=== PATIENT | female | born 2000 | race Caucasian/White ===

== ENCOUNTER 2020-03-19 14:53 | Outpatient (RCR) | payer OTHER, SELFPAY ==
[2020-02-27 17:10] VITALS: BMI 37.6
--- NOTE | 2020-03-19 15:18 | HP.PTEVAL ---
Patient's Visit Information LAVELL GUPTA is a 19 year old F referred to Physical Therapy by NIMO Hua with a diagnosis of Shoulder muscle strain. Date of Evaluation: 03/19/20 Physical Therapist: Adam Umaña, DPT, OCS, CSCS - Visit Plan Plan: Pt seems to have greatly benefitted from 2+weeks of rest. Symptoms resolved. I offered her strengthening program to ensure future success but she wishes to return to work and continue her stretches and be done with PT which is hard for me to argue with based on her symptoms resolved and that she willnot need to do the heavy workload that led to this problem in the first place. No skilled PT required or desired. D/C - Subjective Got tendonitis one month ago L shoulder.. Lifted 9 hours straight for four months and slowly started getting pain in shoulder. Diagnosed with tendonitis. Was on light duty for two weeks, then quarantined for two weeks. Shoulder much better afterr the first two weeks. Painfree for last two weeks. Doing stretches at home. 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 Needs to get back to work. Feels ready to go back. Pt feels like stretches will keep it from coming back. Sleep is fine. Home activities are fine adn full. Last work day was last Wednesday from quarantine. Dr. margie champion will see today at 5 pm. Allowed to work now but not to lift. No symptoms in 3 weeks. Wants to do one visit of PT so can return to work. 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 - Objective Pt adamant that she is fine adn does not want any strengthening adn just wants to go back to work full duty. Posture is slightly forward head and shoulders. Cervical AROM is full and without pain. She has no pain to palpation in the UT, neck paraspinals or shoulders today. - external rotation lag test. - sulcus test. - chaz covington. - neer. - labral test L shoulder. Full aROM at B shoulders elbow and wrists. 4+/5 strength in shoulder rotattors and elevators without pain today. elbow sterngth is 5/5 B in flexion and extension. thumb ext adn wrist are 4+. No pain with any testing or palpations. reflexes bi and tri 2/3. Sensation B UE WNL to gross light touch. Overall patient symptoms seem resolved. - Rehabilitation Potential Physical Therapy Diagnosis: Resolved shoulder strain. - Anticipated Interventions Thank you for the opportunity to evaluate your patient. For Medicare and Medicare HMO plans, please review the plan of care and approve it. It will need to be FAXED BACK to us at [phone] for Medicare purposes. For Medicare only, by signing this I certify the plan of care. Please let me know if there are questions or concerns regarding this plan of care. Physician Signature: Date:
== END 2020-03-19 19:00 | disposition home or self-care (01) ==
LOC: PT 14:53
PROVIDERS: PCP Family Medicine; Referring Provider Physician Assistant Surgical; Visit Provider Physician Assistant Surgical
DX: S46.912D Strain of unspecified muscle, fascia and tendon at shoulder and upper arm level, left arm, subsequent encounter (principal)
CPT/HCPCS: 97161

== ENCOUNTER 2020-08-01 18:49 | Observation (INO) | payer BC, SELFPAY ==
[2020-03-19 17:16] VITALS: BMI 40.5
[2020-08-01 18:49] VITALS: BP 164/74; PULSE 75; RESP 16; TEMP 35.8; O2SAT 98; BMI 39.8
--- NOTE | 2020-08-01 19:07 | ED.DCSUM_ITS ---
History of Present Illness Chief Complaint: Abd Pain Informant: Patient Narrative: 20-year-old female with no significant past medical history presenting with right upper quadrant pain. She states she has had this for some time and its been intermittent. She had outpatient lab work drawn which was normal and a right upper quadrant ultrasound which showed dilated common bile duct of 6.1 mm and a 16 mm gallstone as well as cholelithiasis. Patient states that her pain is now constant. She does not want to go to pulmonary hospital for treatment. She denies any fever, chills. She denies vomiting but has some mild nausea. She denies diarrhea or constipation. Past Medical History - Allergies and Home Meds Allergies/Adverse Reactions: Allergies Sulfa (Sulfonamide Antibiotics) Adverse Reaction (Verified 08/01/20 18:52) Mucosal lesions Prior records reviewed: Yes Past Medical History: - - No significant medical history Surgical History: noncontributory Lives: Spouse/ Significant Other Smoking Status: Never smoker Alcohol: None Drugs: None Review of Systems General: Denies: Chills, Fever, Sweats Eyes: Denies: Visual changes - bilaterally, Diplopia ENT: Denies: Rhinorrhea, Sore throat Cardiovascular: Denies: Chest pain, Palpitations Respiratory: Denies: Dyspnea, Cough, Dyspnea on exertion Gastrointestinal: Reports: Abdominal pain, Nausea. Denies: Vomiting, Diarrhea, Constipation, Melena, Hematochezia Genitourinary: Denies: Dysuria, Hematuria, Frequency Musculoskeletal: Denies: Back pain, Extremity Pain Skin: Denies: Rash, Wounds Neurological: Denies: Headache, Weakness, Numbness Psych: Denies: Depression, Anxiety Endocrine: Denies: Polyuria, Polydipsia Physical Exam Vital Signs/Narrative: Vital Signs Temp Pulse Resp BP Pulse Ox 08/01/20 18:49 96.5 F L 75 16 164/74 H 98 Inital Vital Signs reviewed: Yes General: Well nourished, Acute Distress - Appears to be in pain Eyes: Perrl, EOMI ENT: Moist mucous membranes, No rhinorrhea Cardiovascular: Regular rate, Regular rhythm Abdomen: Soft, Nondistended, Steward's sign Back: Nontender, Normal Inspection Extremities: Nontender, No edema Skin: Normal color, No rash. Negative for: Cyanosis, Diaphoresis Neurological: Negative for: Alert, Oriented x3, Cranial nerves II-XII grossly intact Psychological: Normal affect, Normal Mood Diagnostic/Tx/Re-eval Clinical Impression(s) from Imaging Studies Gallbladder Ultrasound 08/01/20 19:24 IMPRESSION: Cholelithiasis positive Steward''s sign which may be consistent with acute cholecystitis. This may be further confirmed with HIDA scan if clinically warranted Electronically Signed: Joshua Mistry MD at 19:59 EDT , Service support , Laboratory Data 08/01/20 08/01/20 08/01/20 19:05 19:15 19:15 WBC 11.1 H RBC 4.74 Hgb 14.1 Hct 40.8 MCV 86.1 MCH 29.7 MCHC 34.6 RDW Std Deviation 35.5 RDW Coeff of Elvia 11.3 L Plt Count 243 MPV 10.0 Immature Gran % (Auto) 0.300 Neut % (Auto) 67.2 Lymph % (Auto) 26.6 [place] % (Auto) 4.9 Eos % (Auto) 0.5 Baso % (Auto) 0.5 Absolute Neuts (auto) 7.5 Absolute Lymphs (auto) 2.95 Nucleated RBC % 0 Sodium 138 Potassium 3.8 Chloride 107 Carbon Dioxide 26.0 Anion Gap 5 BUN 16 Creatinine 0.86 Estim Creat Clear Calc 86.32 Est GFR (MDRD) Af Amer 109 Est GFR (MDRD) Non-Af 90 BUN/Creatinine Ratio 18.7 Glucose 86 Calcium 8.9 Total Bilirubin 0.30 Direct Bilirubin 0.10 AST 9 L ALT 20 Alkaline Phosphatase 76 Total Protein 7.3 Albumin 3.9 Globulin 3.4 Lipase 88 Serum , Qual Urine Color Yellow Urine Clarity Clear Urine pH 7.0 Ur Specific [place] 1.015 Urine Protein Negative Urine Glucose (UA) Normal Urine Ketones Negative Urine Occult Blood Negative Urine Nitrite Negative Urine Bilirubin Negative Urine Urobilinogen Normal Ur Leukocyte Esterase Negative Urine RBC 0 SEEN Urine WBC 0 SEEN Ur Squamous Epith Cells 0-5 SEEN Urine Bacteria 0 SEEN Urine Mucus 0 SEEN 08/01/20 19:15 WBC RBC Hgb Hct MCV MCH MCHC RDW Std Deviation RDW Coeff of Elvia Plt Count MPV Immature Gran % (Auto) Neut % (Auto) Lymph % (Auto) [place] % (Auto) Eos % (Auto) Baso % (Auto) Absolute Neuts (auto) Absolute Lymphs (auto) Nucleated RBC % Sodium Potassium Chloride Carbon Dioxide Anion Gap BUN Creatinine Estim Creat Clear Calc Est GFR (MDRD) Af Amer Est GFR (MDRD) Non-Af BUN/Creatinine Ratio Glucose Calcium Total Bilirubin Direct Bilirubin AST ALT Alkaline Phosphatase Total Protein Albumin Globulin Lipase Serum , Qual NEGATIVE Urine Color Urine Clarity Urine pH Ur Specific [place] Urine Protein Urine Glucose (UA) Urine Ketones Urine Occult Blood Urine Nitrite Urine Bilirubin Urine Urobilinogen Ur Leukocyte Esterase Urine RBC Urine WBC Ur Squamous Epith Cells Urine Bacteria Urine Mucus - Medical Decision Making Patient presenting with right upper quadrant pain and positive Steward sign. She does appear to be in pretty exquisite pain initially. She is given morphine and Zofran and has good control of her pain. When reevaluated though she does have tenderness. Her CBC shows an increasing leukocytosis at 11,000 which was previously 9.5. Renal function electrolytes are normal. LFTs are not elevated. Ultrasound of the gallbladder shows cholelithiasis. Gallbladder wall is normal. Common bile duct is upper limits of normal at [address] Mcnair will come evaluate the patient. At this point given the patient's elevated white blood cell count and gallstones as well as upper limit of normal common bile duct patient will be admitted for acute cholelithiasis Impression: 1. Acute cholelithiasis ED Disposition - Plan for ED Patient: Disposition: Acute Care Hospital [facility]
[2020-08-01 19:10] LABS: Bacteria 0 SEEN /hpf (None Seen); Mucous, Urine 0 SEEN /hpf (<or=2+); Red Blood Cells-Urine 0 SEEN /hpf (0-5); White Blood Cells 0 SEEN /hpf (0-5)
[2020-08-01 19:14] LABS: Color, Urine Yellow (Yellow); Glucose, Dipstick Normal (Normal); Ketone-Dipstick Negative (Negative); Leukocyte Esterase-Dipstick Negative /ul (Negative); Nitrite-Dipstick Negative (Negative); Occult Blood-Urine Negative /ul (Negative); Protein-Dipstick Negative (Negative); Specific Gravity, Urine 1.015 (1.002-1.030); Urine Bilirubin Dipstick Negative (Negative); Urine Clarity Clear (Clear); Urine Urobilinogen Normal (Normal)
[2020-08-01] MEDS: 0.9% Normal Saline 1,000 ML 1000 ML IV (19:17)
[2020-08-01] MEDS: Ondansetron 4 MG/2 ML Vial IV (19:17)
[2020-08-01] MEDS: Morphine 4 MG/ML Syringe IV (19:18)
[2020-08-01 19:20] LABS: Squamous Epithelial Cells - UA 0-5 SEEN /hpf (5-10)
[2020-08-01 19:24] LABS: Absolute Lymphocyte Count 2.95 X10^3/uL (0.83-4.51); Absolute Neutrophil Count 7.5 X10^3/uL (2.0-7.7); Basophil# 0.06 X10^3/uL; Basophil% 0.5 % (0-1); Eosinophil# 0.06 X10^3/uL; Eosinophils% 0.5 % (0-5); Hematocrit 40.8 % (37-47); Hemoglobin 14.1 g/dL (12.0-15.0); Lymphocyte # 2.95 X10^3/ul (0.83-4.51); Lymphocyte % 26.6 % (19-41); Mean Corp Hgb Conc 34.6 g/dL (32-36); Mean Corpuscular Hgb 29.7 pg (27.0-32.0); Mean Corpuscular Volume 86.1 fL (81-99); Monocyte# 0.54 X10^3/uL; Monocyte% 4.9 % (0-10); NRBC Flagged by Analyzer 0 % (0-5); Neutrophil # 7.45 X10^3/uL (2.7-7.7); Neutrophil % 67.2 % (47-70); Platelet Count 243 K/mm3 (150-450); RBC Distribution Width CV 11.3 % (11.6-14.6); RBC Distribution Width SD 35.5 fl (35.1-43.9); Red Blood Count 4.74 M/mm3 (4.2-5.4); White Blood Count 11.1 K/mm3 (4.4-11.0)
--- NOTE | 2020-08-01 19:24 | US_ITS ---
STUDY: ABDOMINAL ULTRASOUND - RIGHT UPPER QUADRANT REASON FOR VISIT: Female, 20 years old PAIN-RUQ TECHNIQUE: Ultrasound evaluation of the right upper quadrant was performed with real-time and static larsen-scale imaging. TECHNICAL QUALITY: Adequate. COMPARISON: None. FINDINGS: Liver: The liver measures 17.5 cm. There is normal echogenicity of the liver. The bile ducts are within normal limits. There is hepatic color flow. The direction of portal flow is hepatopetal. There is no demonstrated mass lesion. Gallbladder: Normal distended gallbladder. The gallbladder wall measures 3 mm. There is a positive sonographic Steward''s sign. There is no pericholecystic fluid. There is a solitary. Common Bile Duct (C.B.D.): The common bile duct measures 6 mm. Pancreas: Suboptimal visualization due to bowel gas producing artifact.. Right Kidney: Normal size of the right kidney. The right kidney measures 11.1 x 5.1 x 3.7 cm. Normal renal cortex. The right cortex measures 1.4 cm. There is no demonstrated renal mass or cyst. There is no right hydronephrosis. US/Gallbladder IMPRESSION: Cholelithiasis positive Steward''s sign which may be consistent with acute cholecystitis. This may be further confirmed with HIDA scan if clinically warranted Electronically Signed: Joshua Mistry MD at 19:59 EDT , Service support ,
[2020-08-01 19:51] LABS: Internal QC Validated? YES +Cl - CLEAR BKGD; Pregnancy, Serum, hCG Quali. NEGATIVE Negative
[2020-08-01 19:59] LABS: AST(SGOT) 9 U/L (15-37); Alanine Aminotransfer ALT/SGPT 20 U/L (13-56); Albumin, Serum 3.9 g/dL (3.2-5.0); Alkaline Phosphatase 76 U/L (45-117); Anion Gap 5 (5-15); BUN 16 mg/dL (7-18); BUN/Creat Ratio 18.7 RATIO (10-20); Calcium,Total 8.9 mg/dL (8.5-10.1); Chloride 107 mmol/L (98-107); Creatinine, Serum 0.86 mg/dL (0.55-1.02); EST Glomerular Filtration Rate 90 mL/min (>60); Est Glom Filt Rate - Afr Amer 109 mL/min (>60); Estimated Creatinine Clearance 86.32 ml/min; Globulin 3.4 g/dL (2.2-4.2); Glucose 86 mg/dL (74-106); Lipase 88 U/L (73-393); Potassium 3.8 mmol/L (3.5-5.1); Protein, Total 7.3 g/dL (6.4-8.2); Sodium Level 138 mmol/L (136-145)
[2020-08-01 20:54] VITALS: BP 139/74; PULSE 84; RESP 16; O2SAT 99
[2020-08-01 20:55] VITALS: BP 139/74; PULSE 84; RESP 16; TEMP 35.8; O2SAT 99
--- NOTE | 2020-08-01 21:00 | PCM.HP.STD ---
Problem List (1) Acute cholecystitis due to biliary calculus Status: Acute History of Present Illness Date of Admission: 08/01/20 The patient is a 20 year old F presents with abdominal pain. The patient has been having abdominal pain for 4 weeks and had outpatient imaging last week and this showed cholelithiasis but at that time she had a normal white count. She presents today with worsening of right upper quadrant pain which radiates to the back and nausea. Patient reports pain with eating any food. She says the nausea has gotten worse over the last week as has the pain. Past Medical History Allergies Sulfa (Sulfonamide Antibiotics) Adverse Reaction (Verified 08/01/20 18:52) Mucosal lesions Home Medications: Ambulatory Orders Medication Instructions Recorded Ondansetron [Zofran Odt] 4 mg PO Q8H PRN PRN #12 tablet 08/01/20 Surgical History: noncontributory Lives: Spouse/ Significant Other Smoking Status: Never smoker Alcohol: None Drugs: None Review of Systems Constitutional: Denies: Anorexia, Fever HEENT: Denies: Difficulty Swallowing Respiratory: Denies: Cough Gastrointestinal: Reports: Abdominal Pain, Nausea. Denies: Constipation, Diarrhea, Vomiting Genitourinary: Denies: Dysuria Musculoskeletal: Denies: Joint Tenderness Skin: Denies: Jaundice Hematologic/ Lymphatic: Denies: Anemia VTE Information - Inpt Only VTE Present on Admission: No VTE Mechan Device Prophylaxis: SCD's - Physical Exam Vitals/I&O's: Vital Signs Temp Pulse Resp BP Pulse Ox 96.5 F L 84 16 139/74 H 99 08/01/20 20:55 08/01/20 20:55 08/01/20 20:55 08/01/20 20:55 08/01/20 20:55 Oxygen Delivery Method Room Air Weight: 225 lb Body Mass Index (BMI) 39.8 Intake and Output for Last 24 Hours 07/30/20 07/31/20 08/01/20 23:59 23:59 23:59 Intake Total 1000 / 1000 Balance 1000 / 1000 General: Alert, Oriented x3 Neck: No JVD Lungs: Normal air movement Cardiovascular: Regular rate, Regular Rhythm Abdomen: Soft, Non-Distended, Tender - Tender in the right upper quadrant no guarding rebound Extremities: No clubbing Musculoskeletal: No Muscle Wasting Lymphatic: No Cervical, Supraclavicular, or Inguinal Adenopathy Neurological: Cranial nerves II-XII grossly intact Psych/Mental Status: Normal Affect Laboratory Results 08/01/20 19:05: Urine Color Yellow, Urine Clarity Clear, Urine pH 7.0, Ur Specific [place] 1.015, Urine Protein Negative, Urine Glucose (UA) Normal, Urine Ketones Negative, Urine Occult Blood Negative, Urine Nitrite Negative, Urine Bilirubin Negative, Urine Urobilinogen Normal, Ur Leukocyte Esterase Negative, Urine RBC 0 SEEN, Urine WBC 0 SEEN, Ur Squamous Epith Cells 0-5 SEEN, Urine Bacteria 0 SEEN, Urine Mucus 0 SEEN 08/01/20 19:15: WBC 11.1 H, RBC 4.74, Hgb 14.1, Hct 40.8, MCV 86.1, MCH 29.7, MCHC 34.6, RDW Std Deviation 35.5, RDW Coeff of Elvia 11.3 L, Plt Count 243, MPV 10.0, Immature Gran % (Auto) 0.300, Neut % (Auto) 67.2, Lymph % (Auto) 26.6, [place] % (Auto) 4.9, Eos % (Auto) 0.5, Baso % (Auto) 0.5, Absolute Neuts (auto) 7.5, Absolute Lymphs (auto) 2.95, Nucleated RBC % 0 08/01/20 19:15: Sodium 138, Potassium 3.8, Chloride 107, Carbon Dioxide 26.0, Anion Gap 5, BUN 16, Creatinine 0.86, Estim Creat Clear Calc 86.32, Est GFR (MDRD) Af Amer 109, Est GFR (MDRD) Non-Af 90, BUN/Creatinine Ratio 18.7, Glucose 86, Calcium 8.9, Total Bilirubin 0.30, Direct Bilirubin 0.10, AST 9 L, ALT 20, Alkaline Phosphatase 76, Total Protein 7.3, Albumin 3.9, Globulin 3.4, Lipase 88 08/01/20 19:15: Serum , Qual NEGATIVE Clinical Impression(s) from Imaging Studies Gallbladder Ultrasound 08/01/20 19:24 IMPRESSION: Cholelithiasis positive Steward''s sign which may be consistent with acute cholecystitis. This may be further confirmed with HIDA scan if clinically warranted Electronically Signed: Joshua Mistry MD at 19:59 EDT , Service support , Assessment/Plan All Active Problems (Last Reviewed 03/19/20 @ 17:19 by Maribell Guidry) Acute cholecystitis due to biliary calculus (Acute) Left shoulder strain (Acute) 20-year-old female with acute cholecystitis 1. The patient had repeat labs and imaging today. The imaging shows a large gallstone in the neck of the gallbladder with a borderline thickness gallbladder wall. The patient has sonographic positive Steward sign. The patient does have a white count of 11 which is slightly elevated and it was 9 a few days ago. The patient is in a lot of pain and is unable to tolerate a diet. I discussed laparoscopic cholecystectomy with her and I will admit her overnight and antibiotics and plan for laparoscopic cholecystectomy with cholangiogram tomorrow. Her bile duct was also slightly dilated so I will plan for cholangiograms. 2. I discussed the procedure in detail with the patient. I discussed the risks, benefits, and alternatives of the procedure. I discussed the risks including but not limited to bleeding, infection, injury to surrounding organs such as the liver, bile duct, bowels. I did discuss the possibility of having to convert to an open procedure as well as the possibility that if any injuries occurred this may necessitate further surgery at a tertiary care center. Elfego Reynolds MD Pager: [facility] [address] [place] [address], [address] [place] [address] Office:
[2020-08-01 22:02] VITALS: BMI 39.8
[2020-08-01 22:28] VITALS: BP 125/60; PULSE 72; RESP 20; TEMP 36.7; O2SAT 98
[2020-08-01] MEDS: 0.9% Saline Lock 10 ML Syringe IV (23:14)
[2020-08-01] MEDS: 0.9% Normal Saline 1,000 ML 100 ML IV (23:14)
[2020-08-02] VITALS (8 sets, daily range): BP systolic 130–147; BP diastolic 59–83; PULSE 73–105; RESP 16; TEMP 36.3–36.9; O2SAT 97–100; BMI 39.8
--- NOTE | 2020-08-02 | GALL_PTH ---
PATIENT: LAVELL HARTMAN LOC: MS3 U#:[id number] AGE/SX: 20/F ROOM: MS311 RE08/01/[address]: Dr. Elfego Reynolds MD : 2000 BED: 1 DIS: 08/02/2020 SPEC #: [id number] RECD: 08/05/20 08:15 STATUS: JUAN PABLO MARCOS #: [id number] CORY: 08/02/20 00:[address]: Elfego Reynolds DEPT: SURGICAL PATHOLOGY RECD BY: Ulices Catherine ENTERED: 08/05/20 08:15 SP TYPE: NORM TRUONG DR: Sandra Gandhi PA-C Tissues: Gallbladder, NOS Procedures: Surgery Specimen Level III HEADER OPERATION: Laparoscopic cholecystectomy with IOC PRE-OP DIAGNOSIS: Biliary colic, acute cholecystitis TISSUE SUBMITTED: Gallbladder and contents MICROSCOPIC DIAGNOSIS Gallbladder and contents, cholecystectomy: Mild chronic cholecystitis, cholelithiasis and focal cholesterolosis. DESTINY:anthony 08/06/2020 MICROSCOPIC DESCRIPTION Slides are reviewed. GROSS DESCRIPTION Received is one container labeled with the patient's name and designated gallbladder and contents. The specimen consists of a gallbladder measuring 9 cm in length and up to 3.5 cm in diameter. The external surface is pink-patel, smooth and glistening for the most part. Focally it is granular, hemorrhagic and contains cautery artifact. The gallbladder contains green-yellow mucoid bile and one brown, round stone measuring 1 cm in greatest dimension. The mucosa is bile-stained and without any mass lesions. The gallbladder wall measures up to 0.1 cm in thickness. Woods Laborer sections from the gallbladder and the cystic duct are submitted in one cassette. / DESTINY:anthony 08/05/20 TC:3 [facility]: [id number]
--- NOTE | 2020-08-02 05:00 | EKG12_ITS ---
Test Reason : PRE-OP Blood Pressure : / mmHG Vent. Rate : 066 BPM Atrial Rate : 066 BPM P-R Int : 134 ms QRS Dur : 098 ms QT Int : 386 ms P-R-T Axes : 024 061 033 degrees QTc Int : 404 ms Sinus rhythm with marked sinus arrhythmia Otherwise normal ECG No previous ECGs available Confirmed by IRINA CAO, ANTONIO ([id number]), proposal editor JEREMIAH MARTINEZ ([id number]) on 08/05/2020 10:07:12 A M Referred By: JANINE Confirmed By:CASANDRA AREVALO MD
[2020-08-02] MEDS: Ondansetron 4 MG/2 ML Vial IV (05:47)
[2020-08-02 05:50] LABS: Absolute Lymphocyte Count 2.28 X10^3/uL (0.83-4.51); Absolute Neutrophil Count 4.8 X10^3/uL (2.0-7.7); Basophil# 0.03 X10^3/uL; Basophil% 0.4 % (0-1); Eosinophil# 0.03 X10^3/uL; Eosinophils% 0.4 % (0-5); Hematocrit 39.6 % (37-47); Hemoglobin 13.3 g/dL (12.0-15.0); Lymphocyte # 2.28 X10^3/ul (0.83-4.51); Lymphocyte % 30.6 % (19-41); Mean Corp Hgb Conc 33.6 g/dL (32-36); Mean Corpuscular Volume 86.5 fL (81-99); Mean Platelet Vol. 9.8 fl (6.2-12.0); Monocyte# 0.35 X10^3/uL; Monocyte% 4.7 % (0-10); NRBC Flagged by Analyzer 0 % (0-5); Neutrophil # 4.75 X10^3/uL (2.7-7.7); Neutrophil % 63.8 % (47-70); Platelet Count 236 K/mm3 (150-450); RBC Distribution Width CV 11.4 % (11.6-14.6); RBC Distribution Width SD 36.1 fl (35.1-43.9); Red Blood Count 4.58 M/mm3 (4.2-5.4); White Blood Count 7.5 K/mm3 (4.4-11.0)
[2020-08-02 06:08] LABS: ALB/GLOB Ratio 1.1 RATIO (0.9-2.4); AST(SGOT) 10 U/L (15-37); Alanine Aminotransfer ALT/SGPT 18 U/L (13-56); Albumin, Serum 3.5 g/dL (3.2-5.0); Alkaline Phosphatase 67 U/L (45-117); Anion Gap 5 (5-15); BUN 12 mg/dL (7-18); BUN/Creat Ratio 18.8 RATIO (10-20); Calcium,Total 8.7 mg/dL (8.5-10.1); Chloride 110 mmol/L (98-107); Creatinine, Serum 0.64 mg/dL (0.55-1.02); EST Glomerular Filtration Rate 126 mL/min (>60); Est Glom Filt Rate - Afr Amer 152 mL/min (>60); Estimated Creatinine Clearance 115.99 ml/min; Globulin 3.1 g/dL (2.2-4.2); Glucose 91 mg/dL (74-106); Potassium 3.9 mmol/L (3.5-5.1); Protein, Total 6.6 g/dL (6.4-8.2); Sodium Level 139 mmol/L (136-145)
[2020-08-02] MEDS: 0.9% Normal Saline 1,000 ML 100 ML IV (09:25)
--- NOTE | 2020-08-02 14:40 | RAD_ITS ---
CLINICAL HISTORY: Female, 20 years old. Acute cholecystitis PROCEDURE: CHOLANGIOGRAM - intraoperative FLUOROSCOPY TIME (if supplied): 1 second Technique: Utilizing fluoroscopic guidance intraoperative cholangiogram was performed in usual fashion. A sequence of 62 images was obtained during the study documenting the procedure. For more complete information recommend correlation with surgical notes RAD/Cholangiogram/ O R,Initial IMPRESSION: Fluoroscopic guided intraoperative cholangiogram Electronically Signed: Joshua Mistry MD at 18:00 EDT , Service support ,
[2020-08-02] MEDS: Bupiv/Epi 0.25% 30 ML Vial (15:15)
--- NOTE | 2020-08-02 15:16 | PCM.OPRPT ---
Problem List (1) Acute cholecystitis due to biliary calculus Status: Resolved Report of Operation Date of Procedure: 08/02/20 Pre-Operative Diagnosis: Acute cholecystitis Post-Operative Diagnosis: Same Surgery/Procedure Performed:: Laparoscopic cholecystectomy with cholangiogram Specimen's removed: Gallbladder and contents Estimated Blood Loss (mL): 10 Description of Procedure: After obtaining informed consent patient was brought back to the operating room. General anesthesia was induced. The abdomen was prepped and draped in usual sterile fashion. A small midline incision was made superior to the umbilicus and deepened to the level of fascia. The fascia was elevated and incised. Next the peritoneum was elevated and incised in the same fashion. Finger sweep was performed and the Shabazz trocar was placed into the abdomen. The balloon was inflated. The abdomen was inflated to 15 mmHg. Next a camera was introduced into the abdomen and the abdomen was inspected. Next under direct visualization three 5-mm ports were placed one subxiphoid and 2 subcostal. Next the gallbladder was elevated and retracted toward the right shoulder. The peritoneum was stripped from the gallbladder. The infundibulum was located and retracted laterally. Next the triangle of Calot was dissected and the cystic duct and cystic artery were identified. Cholangiograms were performed. The Benavides clamp was used to clamp across the infundibulum and the catheter needle was inserted into the gallbladder. Under fluoroscopy contrast was instilled into the gallbladder and the common duct, cystic duct as well as proximal hepatic ducts were identified. There was good filling of the duodenum. There were no filling defects noted in the common bile duct. The clamp was removed as well as the needle and the infundibulum was grasped once more. Three hemolock clips were placed across the cystic duct. The cystic duct was then divided leaving 2 clips on the stump. The cystic artery was clipped and divided in the same fashion. The hook cautery was then used to take the gallbladder off of the gallbladder bed. Hemostasis was obtained. Gallbladder fossa was irrigated and no active bleeding or bile leakage was noted. Next the camera was introduced in the subxiphoid port. An Endopouch bag was placed through the umbilical port and the gallbladder was placed into it. The gallbladder was then removed through the umbilical incision. The camera was then reinserted through the umbilical port. The gallbladder fossa was inspected once more and noted to be hemostatic with no leaking bile. The abdomen was suctioned dry. The 5 mm ports were removed under direct visualization. The umbilical port was then removed and the air was removed from the abdomen. Next using an 0 Vicryl suture the umbilical fascia was closed in a [id number] fashion. The umbilical port site was irrigated local anesthetic was administered to all the incisions. All the incisions were closed with interrupted subcuticular 4-0 Monocryl sutures followed by Steri-Strips and dressings. The patient was awoken and taken to PACU in stable condition. - Admit VTE Documentation VTE Mechan Device Prophylaxis: SCD's
--- NOTE | 2020-08-02 15:21 | PCM.DC.GB ---
Discharge Diet: Light diet - advance as tolerated Discharge Activity: Return to Normal Activity, May Not Drive - for 2-3 days or while taking narcotic pain medicataions., - - Do not drive, work heavy equipment or sign legal documents for 24 hours. May shower in (days): 1 - with the bandage in place. Lifting Restrictions: 20 lbs for 2 weeks Additional Activity Instructions:: Pain medication may cause nausea. You should typically eat light foods as you take your pain medications. Pain medication may also cause constipation. If this is a problem for you, please discuss with your doctor. Call your doctor if your incision/area has: Continuous Slow Oozing, Sudden Increased Bleeding, Increased Pain/ Swelling, Increased Redness, Foul Smelling Discharge, Fever of 101 or Higher Call your doctor if you observe: Fever of 101 or Higher Suture Line Care: Avoid Pulling/Pushing, Avoid Pinching/Bending Additional Dressing/Incision Instructions:: Leave operative bandaids on for 2 days. When you remove dressing, leave Steri-Strips on until your follow-up appointment, or until the Steri-Strips fall off on their own. Allergies/Adverse Reactions: Allergies Sulfa (Sulfonamide Antibiotics) Adverse Reaction (Verified 08/01/20 18:52) Mucosal lesions Medications to take at Discharge Acetaminophen [Tylenol Tablet] 650 mg PO Q4H PRN PRN tablet 08/02/20 Oxycodone [Oxyir] 5 - 10 mg PO Q4H PRN PRN 5 Days #30 tablet 08/02/20 The following prescriptions were given: Oxycodone [Oxyir] 5 - 10 mg PO Q4H PRN PRN 5 Days #30 tablet PRN Reason: Pain Score 4-10/10 Transmission Status: Sent to [facility] Primary Care Physician: Cristian Guidry MD [NON-STAFF] - Test Results: Test results from this visit will be discussed in further detail at your follow-up appointment, if applicable. Please Follow Up With: Elfego Reynolds MD When: Please call to schedule 2 week follow up appointment. [phone]
[2020-08-02] MEDS: 0.9% Saline Lock 10 ML Syringe IV (16:41)
[2020-08-02] MEDS: Morphine 2 MG/ML Syringe IV (16:41)
[2020-08-02] MEDS: oxyCODONE 5 MG Tablet PO (17:28)
== END 2020-08-02 19:40 | disposition home or self-care (01) ==
LOC: ED 20:01 → MS3 21:50
PROVIDERS: Admitting Provider Surgery; Emergency Provider Student in an Organized Health Care Education/Training Program; PCP Family Medicine; Visit Provider Surgery
PROC: (CPT 47610; principal; 2020-08-02 13:55)
DX: K80.66 Calculus of gallbladder and bile duct with acute and chronic cholecystitis without obstruction (principal); J45.998 Other asthma
CPT/HCPCS: 00790; 47563; 74300; 76000; 76705; 80048; 80053; 80076; 81001; 83690; 84703; 85025; 87426; 88304; 93005; 96361; 96365; 96366; 96375; 96376; 99218; 99251; 99283; J7030; J7040; A4216; G0378; G0463; J2405

== ENCOUNTER 2021-08-19 16:30 | Outpatient (RCR) | payer OTHER, SELFPAY ==
--- NOTE | 2021-06-18 09:55 | HP.PTEVAL_ITS ---
Patient's Visit Information LAVELL HARTMAN is a 21 year old F referred to Physical Therapy by NIMO Butterfield with a diagnosis of R shoulder pain. Date of Evaluation: 06/10/21 Physical Therapist: Sanchez Bolivar DPT - Visit Plan Frequency: 2x /Week Duration: 4 Weeks Plan: Start with restoring full motion without increase in symptoms, may bee to add in inferior glides with mobility to assist. Can use US to anterior aspect of shoulder as needed. Once improving work on scapular stability and RTC strengthening as tolerated. - Subjective Pt. is here today for her initial evaluation with diagnosis of R shoulder pain. Pt. reports hurting shoulder from what she believes as increased repetition at work. She reports symptoms started ~2 years ago. She had taken time off and was doing a bit better, but is now back and is worse. 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 Pain at worst 10/10, constantly at least a 4-5/10 pain. She denies N/T and no issues with her x-rays. She did have some exercises from PT which she received 2 years ago, but did not provide much relief. Her pain is at anterior shoulder that radiates into deltoid region, she has been using her R UE move and just having L arm at her side as much as she can. She recently started lifting again and irritated her symptoms worse. She is hopeful to reduce symptoms in order to be able to complete all of her work, and reactional activities without limitations. - Pain R shoulder Pain Intensity (Out of 10): 4 Pain Intensity Range: 4, 10 - Objective POSTURE: FH with anterior rotated shoulders. PALPATION: Pt. has tenderness in B UT, R anterior shoulder near biceps grove. Pt. has pain at supraspinatus insertion as well. No pain to palpation of deltoid. NEURO: Pt. has normal sensation and normal DTR of BUEs. ROM: LUE full ROM without increase in symptoms. R UE flexion, 170deg increase NW at end range, abd 170deg increase NW at end range. Functional IR full no issues, functional ER C4 increase NW. MMT: LUE: full strength without increase in symptoms. RUE: full strength except, ER 17.1# compared to 26# on L, and abd 13# compared to 21# on L. Pain with both movements. - Special Tests R Shoulder Drop Sign - IS Test: Negative R Shoulder Empty Can - SS: Positive R Shoulder Belly Press - SupScap: Negative R Shoulder Neer - Impingement: Positive R Shoulder Beltrán Leo - Impingement: Positive R Shoulder Biceps Load Test - Labrum: Negative R Shoulder Yeargasons - SLAP: Negative R Shoulder Speeds Test - Labrum/Biceps: Negative - Balance/Special Test Scores Quick DASH Score: 40.9075 - Goals Goal 1:: LTG: Pt. to be I with HEP for RTC and scapular stability. Goal Time Frame: 2-4 Weeks Goal 2:: STG: Pt. to sleep throughout the night with 0-2/10 pain allowing for increased quality of life. Goal Time Frame: 2 Weeks Goal 3:: STG: Pt. to have 0-2/10 pain in R shoulder at rest. Goal Time Frame: 2 Weeks Goal 4:: LTG: Pt. to complete all work duties including lifting over head, reaching across body and all ADLs without increase in symptoms. Goal Time Frame: 2-4 Weeks Goal 5:: LTG: Pt. to have increased R shoulder strength by 10# in ER and abduction movements allowing increased stability and tolerance with all work related activities. Goal Time Frame: 4-6 Weeks - Rehabilitation Potential Physical Therapy Diagnosis: Pt. has signs and symptoms consistent with R shoulder pain. She has signs of RTC pathology hard to discern between tear and tendonosis due to pain. She has decent strength and fine passive motion. At this point in time I would suggest working to restore pain free motion and slow loading RTC to increase tensile strengthen. Rehabilitation Potential: Good - Anticipated Interventions Patient/Client Instruction: Educate patient on: Condition, Plan of Care, Risk Factors, Benefits of Fitness Program For the Purpose of:: To improve decision making, To facilitate caregiver knowledge, To improve self management, To prevent re-injury, To improve ability to perform tasks related to life management, To improve tolerance to ADL's Therapeutic Exercise to Include: Strength training, Power training, Endurance training, Body mechanics, Postural training, Flexibilty training, Passive ROM, Active ROM, Balta Exercises, Scapular Strength/Stabilization For the Purpose of:: To decrease pain, To decrease swelling/inflammation, To increase ROM, To improve nutrient delivery to tissue, To increase oxygenation perfusion, To improve muscle performance and motor function, To improve ability to perform ADL's, To increase tolerance to activity/condition/position, To improve ability of physical actions for home/community/work/leisure, To improve gait and locomotor functions, To improve health of tissue Manual Therapy Techniques to Include: Mobilization, Passive ROM For the Purpose of:: To decrease pain, To decrease swelling/inflammation, To increase ROM, To improve nutrient delivery to tissue Ultrasound (thermal/non thermal): Yes For the Purpose of:: To decrease pain, To decrease swelling/inflammation, To increase ROM Thank you for the opportunity to evaluate your patient. For Medicare and Medicare HMO plans, please review the plan of care and approve it. It will need to be FAXED BACK to us at [phone] for Medicare purposes. For Medicare only, by signing this I certify the plan of care. Please let me know if there are questions or concerns regarding this plan of care. Physician Signature: Date:
--- NOTE | 2021-08-21 08:41 | HP.PTDCSUM ---
It has been my pleasure to treat LAVELL HARTMAN referred by NIMO Butterfield, with the diagnosis of R shoulder pain for a total of 10 visit(s). Discharge Date: 08/19/21 Please see the following information for a summary of their discharge status. Subjective: Pt. reports I am like 98% better overall. She reports no pain currently and is back to all of her work activities without limitations. She is HEP. Pt. reports being pleased. R shoulder Pain Intensity (Out of 10): 0 % Improvement: 98 Objective/Function: R shoulder: PROM Full motion without increase in symptoms. AROM: flexion 170deg, abd 170deg, functional ER C5, functional IR T11. Pt. reports no pain, just a little tightness with OH end ranges. MMT: symmetrical throughout bilateral shoulder without increase in symptoms. No issues sleeping, no issues with work activities. No pain reported. - HK, -impingement testing, - speeds, - lift off, - biceps load. Goal 1:: LTG: Pt. to be I with HEP for RTC and scapular stability. Goal Progress: Goal Met Goal 2:: STG: Pt. to sleep throughout the night with 0-2/10 pain allowing for increased quality of life. Goal Progress: Goal Met Goal 3:: STG: Pt. to have 0-2/10 pain in R shoulder at rest. Goal Progress: Goal Met Goal 4:: LTG: Pt. to complete all work duties including lifting over head, reaching across body and all ADLs without increase in symptoms. Goal Progress: Goal Met Goal 5:: LTG: Pt. to have increased R shoulder strength by 10# in ER and abduction movements allowing increased stability and tolerance with all work related activities. Goal Progress: Goal Met Plan: Pt. to be DC to HEP at this point in time. Discharge Comments: Lavell is doing much better. Since she had her injection she has progressed very well. She today had no issues with her shoulder. She is I with her HEP for RTC strengthening/stability. She will be DC from PT at this point in time. If there are questions or concerns regarding this patient's physical therapy, please feel free to call me at [phone]. Thank you for the referral of this patient. Sincerely, Sanchez Estrada Sipos, DPT Balance/Gait/Functional tests - Balance/Special Test Scores Quick DASH Score: 0
== END 2021-08-19 19:00 | disposition home or self-care (01) ==
LOC: PT 16:30
DX: S43.491D Other sprain of right shoulder joint, subsequent encounter (principal); S46.011D Strain of muscle(s) and tendon(s) of the rotator cuff of right shoulder, subsequent encounter
CPT/HCPCS: 97014; 97035; 97110; 97140; 97161; 97164; 97530; G0283

== ENCOUNTER 2025-03-01 16:20 | Outpatient (CLI) | payer BC, SELFPAY ==
[2025-03-01 16:52] VITALS: BP 127/58; PULSE 111; RESP 16; TEMP 37.4; O2SAT 99
[2025-03-01 17:02] VITALS: BMI 46.3
[2025-03-01 17:13] LABS: Mucous, Urine 0 SEEN /hpf (<or=2+)
[2025-03-01 18:13] LABS: Color, Urine STRAW (Yellow)
[2025-03-01 18:15] LABS: Glucose, Dipstick NEGATIVE (Normal); Ketone-Dipstick Negative (Negative); Specific Gravity, Urine 1.015 (1.002-1.030); Urine Bilirubin Dipstick Negative (Negative)
[2025-03-01 18:16] LABS: Leukocyte Esterase-Dipstick Negative /ul (Negative); Nitrite-Dipstick Negative (Negative); Occult Blood-Urine 150 /ul (Negative); Protein-Dipstick 15 mg/dl (Negative)
[2025-03-01 18:18] LABS: Red Blood Cells-Urine 0-5 SEEN /hpf (0-5); Squamous Epithelial Cells - UA 5-10 SEEN /hpf (5-10)
--- NOTE | 2025-03-01 18:53 | NURSING ---
Dr Bah notified of not enough urine for a culture to be sent. ok to cancel order.
--- NOTE | 2025-05-04 11:24 | OB.TRI.NOTE ---
HPI - General HPI Narrative LAVELL HARTMAN, is a 24 F who presents for preE eval. Maternal Data Information GREGORY Calculator Estimated Delivery Date Method Current WG Current Estimate 05/19/25 Manual 37w 6d PFSH PFSH Medical History Family history of hearing loss at age younger than 7 years Umbilical cord cyst during , antepartum Obesity Chronic hypertension Home Medications ?Medication ?Instructions ?Recorded ?Last Taken ?Type vit no.95-ferrous 1 tab PO DAILY 03/01/25 04/29/25 History fumarate 28 mg-folic acid 800 mcg tablet () acetaminophen 500 mg tablet 1,000 mg (2 x 500 mg) PO Q6H #0 05/03/25 Unknown Rx tabs ibuprofen 600 mg tablet 600 mg PO Q6H #0 tabs 05/03/25 Unknown Rx labetalol 200 mg tablet 200 mg PO Q12H 30 days #60 tabs 05/03/25 Unknown Rx Allergy/AdvReac Type Severity Reaction Status Date / Time witch jose Allergy Intermediate Rash Verified 04/29/25 19:33 Sulfa (Sulfonamide AdvReac Mucosal Verified 04/29/25 19:33 Antibiotics) lesions Surgical History History of surgery on lower extremity Hx laparoscopic cholecystectomy Social History Smoking Status: Never smoker History Elective abortions Hx Para 0 Spontaneous abortions Hx # Term Pregnancies Ectopic pregnancies Hx # Pregnancies Multiple births # of living children NST FHR Rate Baby A Baseline: 135 Variability:: Moderate Accelerations:: 15 x 15 Decelerations:: None Uterine Activity:: quiet Assessment & Plan (1) Chronic hypertension affecting : PLAN: Plan Reactive NST
== END 2025-03-01 18:10 | disposition home or self-care (01) ==
LOC: WPOUT 16:35 → WP 16:36
PROVIDERS: Referring Provider Obstetrics & Gynecology; Visit Provider Obstetrics & Gynecology
DX: O10.919 Unspecified pre-existing hypertension complicating pregnancy, unspecified trimester (principal); Z90.49 Acquired absence of other specified parts of digestive tract; Z3A.00 Weeks of gestation of pregnancy not specified
CPT/HCPCS: 59025; 59050; 81001; 99221; G0378

== ENCOUNTER 2025-04-08 13:00 | Outpatient (CLI) | payer BC, SELFPAY ==
[2025-04-08] VITALS (21 sets, daily range): BP systolic 120–141; BP diastolic 65–73; PULSE 96–120; RESP 18; TEMP 36.7; O2SAT 96–98; BMI 47.3
--- OUTSIDE RECORDS SUMMARY | 2025-04-08 13:21 | XMS RPT_ITS | CCD ---
Author Organization [facility] Care Team Providers Care Airline Transport Pilot Name Role Phone Sandra Gandhi Primary Care Provider [phone] SANDRA GANDHI Attending Unavailable NERY GOMEZ Consulting Unavailable SANDRA GANDHI Admitting Unavailable SANDRA GANDHI Primary Care Unavailable PROVIDER, UNKNOWN Consulting Unavailable ABREU, YVETTE Admitting Unavailable ABREU, YVETTE Primary Care Unavailable ABREU, YVETTE Consulting Unavailable ABREU, YVETTE Attending Unavailable PROVIDER, UNKNOWN Consulting Unavailable ABREU, YVETTE Primary Care Unavailable ABREU, YVETTE Attending Unavailable NERY GOMEZ Consulting Unavailable ABREU, YVETTE Admitting Unavailable PROVIDER, UNKNOWN Consulting Unavailable Abreu JAMAICA, Yvette J Unavailable Charo CAO, Dr. Smith Unavailable [facility], . [facility] office Unavailable Akshat CAO, Dr. Chavarria ([place] [facility]) A Unavail able Physical Therapy Provider Unavailable Unavai lab [facility] Ilia BARTH, Suzie Unavailable Chao CAO, Cristian Mcneal Unavailable Luz Diehl LPN Unavailable Unavailable Cindy Johnson MA Unavailable Unavailable Sandra Gandhi PA-C Unavailable Azael BERUMEN, Arya Gee Unavailable [phone] Stephen PEREZ, Sandra Gonzalez Unavailable Unavaila diomedes Ashford LPN, Melanie Unavailable Unavailable Leela Oden RN Unavailable Yohannes PEREZ, Marcia Lora Unavailable Unavailable Florin BARTH, Tania Unavailable Unavailable Nery Gomez PA-C Unavailable Chapo PESTICIDE CHEMIST, Shannon Unavailable Unavailable Bunch JEWEL BEARING DRILLER, Radha Garcia Unavailable Unavailab le Vess JEWEL BEARING DRILLER, Nedoee L Unavailable Unavailable Wengerd JEWEL BEARING DRILLER, Brigitte Unavailable Unavailabl e Unavailable Unavailable Carlos JEWEL BEARING DRILLER, Radha Unavailable Unavailabl e Gopi RUELAS, Ivanna Unavailable Unavailable [place] [facility] BERUMENberly D Primary Care Provider [phone] BRIGITTE PROCTOR Attending Unavailable SRAVANTHI, DAVIDA Referring Unavailable HILLS, SANDRA D Primary Care Unavailable SRAVANTHI, DAVIDA Referring Unavailable HILLS, SANDRA D Primary Care Unavailable SRAVANTHI, DAVIDA Referring Unavailable HILLS, SANDRA D Primary Care Unavailable SRAVANTHI, DAVIDA Attending Unavailable HILLS, SANDRA D Primary Care Unavailable SRAVANTHI, DAVIDA Attending Unavailable HILLS, SANDRA D Primary Care Unavailable WISWELL, ELADIO Referring Unavailable HILLS, SANDRA D Primary Care Unavailable WISREGAN OCHOAA Attending Unavailable BARDSTOWN, SANDRA D Primary Care Unavailable WISWELLREGANA Attending Unavailable [place], SANDRA D Primary Care Unavailable BINA BAJWA Attending Unavailable HILLS, SANDRA D Primary Care Unavailable AMELIA MENDOZA Attending Unavailable BRIGITTE PROCTOR Referring Unavailable HILLS, SANDRA D Primary Care Unavailable BRIGITTE PROCTOR Referring Unavailable HILLS, SANDRA D Primary Care Unavailable YOSSI ALATORRE Attending Unavailable HILLS, SANDRA D Primary Care Unavailable SRAVANTHI, DAVIDA Referring Unavailable HILLS, SANDRA D Primary Care Unavailable Allergies Allergy Classification Reported Allergen(s) Allergy Type Date of Onset Reaction(s) Facility Sulfonamides (antibiotic) (1 source) Sulfonamides (Antibiotic) Drug Allergy [facility].; [facility]. (1 source) Sulfonamides (Antibiotic) Drug allergy (disorder) [facility] Repository (14 sources) Sulfonamides (Antibiotic); Translations: [SULFA (SULFONAMIDE ANTIBIOTICS)] Propensity to adverse reactions 6 [facility] Work Phone: (5 sources) [facility]ides [facility]Antibiotic) [facility] Medications Current Medications Medication Drug Class(es) Dates Sig (Normalized) Sig (Original) acetaminophen 325 mg oral tablet (1 source) Start: 08-02-2020 take 650 mg by mouth every four hours as needed Acetaminophen Active 650 MG PO EVERY 4 HOURS NEEDED August 02, 2020 3:18pm amoxicillin 875 mg / clavulanate 125 mg oral tablet (14 sources) Penicillin-class Antibacterial Start: 12-15-2023 amoxicillin 875 mg-potassium clavulanate 125 mg tablet ; 1 (one) tablet two times daily for 10 days Quantity: 20 {Tablet} Refills: 0 Ordered: 15-Dec-2023 J[place]ICA Abreu Start: 15-Dec-2023 Start: 04-22-2022 End: 05-02-2022 take 1 tablet by mouth twice daily Amoxicillin-Pot Clavulanate 875-125 MG Oral Tablet ; 1 (one) Tablet two times daily for 10 days Quantity: 20 {Tablet} Refills: 0 Ordered: 22-Apr-2022 J[place]ICA Abreu Start: 22-Apr-2022 End: 02-May-2022 Status: Inactive Start: 12-28-2016 End: 01-07-2017 take 1 tablet by mouth twice daily at mealtime Augmentin 875-125 MG Oral Tablet ; 1 Tab two times daily for 10 days Quantity: 20 {Tablet} Refills: 0 Ordered: 28-Dec-2016 JAMAICA Gandhi Start: 28-Dec-2016 End: 07-Jan-2017 Status: Inactive Comments: Take with food Comment on above: Take with food aspirin 81 mg delayed release oral tablet (9 sources) Platelet Aggregation Inhibitor, Nonsteroidal Anti-inflammatory Drug Start: 09-27-19 25 take 1 tablet by mouth once daily aspirin, enteric coated (ECOTRIN LOW STRENGTH) 81 mg EC tablet Indications: Uncertain dates, antepartum, unspecified trimester (HCC) Take 1 tablet by mouth once daily. 90 tablet 3 09/26/2024 Active cholecalciferol 0.025 mg oral capsule (12 sources) Vitamin D End: 12-05-19 Cholecalciferol, Vitamin D3, (VITAMIN D) 25 mcg (1,000 unit) cap Take 1,000 Units by mouth once daily. 12/04/2024 Discontinued Magnesium (12 sources) End: 12-05-19 25 take 1 tablet by mouth once daily Magnesium 250 mg tab Take 250 mg by mouth once daily. 12/04/2024 Discontinued take 1 tablet by mouth once yobani y Magnesium 250 mg tab Take 250 mg by mouth once daily. Active methylPREDNISolone (1 source) Corticosteroid Start: 12-16-2023 methylPREDNISolone 4 mg tablets in a dose pack ; 1 (one) tablet as directed for 0 days Quantity: 1 {Packet} Refills: 0 Ordered: 16-Dec-2023 JAMAICA Abreu Start: 16-Dec-2023 no115/iron/folic acid ( 19 ORAL) (9 sources) take 1 tablet by mouth once daily no115/iron/folic acid ( 19 ORAL) Take 1 tablet by mouth once daily. Active Completed/Discontinued Medications Medication Drug Class(es) Dates Sig (Normalized) Sig (Original) [id number] 200 actuat albuterol 0.09 mg/actuat metered dose inhaler (6 sources) beta2-Adrenergic Agonist Start: 6 End: 7 take 2 puff(s) by inhalation every four to six hours as needed Ventolin HFA 108 (90 Base) MCG/ACT Inhalation Aerosol Solution ; 2 (two) puffs every 4-6 hours as needed for 0 days Quantity: 1 {Inhaler} Refills: 0 Ordered: 28-Dec-2016 ANA Sheffield Start: 19-Sep-2015 End: 28-Dec-2016 Status: Inactive Comments: Medication taken as needed. Comment on above: Medication taken as needed. ALPRAZolam 0.25 mg oral tablet (6 sources) Benzodiazepine Start: 1 End: 2 take 1 tablet by mouth three times daily as needed Xanax 0.25 MG Oral Tablet ; 1 (one) Tablet three times a day as needed for 0 days Quantity: 30 {Tablet} Refills: 0 Ordered: 28-May-2021 LUCINA Cowan Start: 10-Oct-2020 End: 28-May-2021 Status: Discontinued Comments: Medication taken as needed. [facility] Comment on above: Medication taken as needed. [facility] amphetamine aspartate 2.5 mg / amphetamine sulfate 2.5 mg / dextroamphetamine saccharate 2.5 mg / dextroamphetamine sulfate 2.5 mg oral tablet (6 sources) Central Nervous System Stimulant Start: 1 End: 1 take 1 tablet by mouth once daily ADDERALL, 10MG (Oral Tablet) ; 1 Tablet daily for 0 days Quantity: 30 {Tablet} Refills: 0 Ordered: 07-Apr-2011 LARY Morillo Start: 18-Dec-2010 End: 07-Apr-2011 Status: Inactive cefdinir 300 mg oral capsule (6 sources) Cephalosporin Antibacterial Start: 7 End: 7 take 1 capsule by mouth twice daily Cefdinir 300 MG Oral Capsule ; 1 (one) Capsule Capsule bid for 10 days Quantity: 20 {Capsule} Refills: 0 Ordered: 08-Jan-2017 Start: 08-Jan-2017 End: 18-Jan-2017 Status: Inactive citalopram 10 mg oral tablet (6 sources) Serotonin Reuptake Inhibitor Start: 3 End: 6 take 1 tablet by mouth once daily CITALOPRAM HYDROBROMIDE, 10MG (Oral Tablet) ; 1 Tablet Tablet daily for 0 days Quantity: 30 {Tablet} Refills: 5 Ordered: 07-Aug-2015 LARY Torresnifer Start: 25-Jan-2013 End: 07-Aug-2015 Status: Inactive Ethinyl Estradiol / Levonorgestrel (6 sources) Progestin, Estrogen, Progestin-containing Intrauterine Device Start: 2 End: 2 take 1 tablet by mouth once daily Aviane 0.1-20 MG-MCG Oral Tablet ; 1 (one) Tablet daily for 0 days Quantity: 1 {Packet} Refills: 5 Ordered: 11-Dec-2021 LARY Ashford Start: 25-Sep-2021 End: 11-Dec-2021 Status: Inactive famotidine 20 mg oral tablet (6 sources) Histamine-2 Receptor Antagonist Start: 1 End: 1 take 1 tablet by mouth twice daily Famotidine 20 MG Oral Tablet ; 1 (one) Tablet two times daily for 0 days Quantity: 60 {Tablet} Refills: 3 Ordered: 10-Oct-2020 LARY Catherine Start: 24-Jul-2020 End: 10-Oct-2020 Status: Inactive fexofenadine hydrochloride 180 mg oral tablet (6 sources) Histamine-1 Receptor Antagonist Start: 9 End: 1 take 1 tablet by mouth once daily Fexofenadine HCl 180 MG Oral Tablet ; 1 (one) Tablet daily for 0 days Quantity: 90 {Tablet} Refills: 3 Ordered: 24-Jul-2020 LARY Zarate Start: 14-Jul-2018 End: 24-Jul-2020 Status: Inactive FLUoxetine 10 mg oral tablet (6 sources) Serotonin Reuptake Inhibitor Start: 1 End: 4 take 1 tablet by mouth once daily FLUOXETINE HCL, 10MG (Oral Tablet) ; 1 Tablet qd for 0 days Quantity: 30 {Tablet} Refills: 5 Ordered: 15-Jun-2013 LARY Torres Start: 25-Mar-2011 End: 15-Jun-2013 Status: Inactive 12 hr hyoscyamine sulfate 0.375 mg extended release oral tablet (6 sources) Start: 1 End: 2 take 1 tablet by mouth twice daily Levbid 0.375 MG Oral Tablet Extended Release 12 Hour ; 1 (one) Tablet twice daily for 0 days Quantity: 60 {Tablet} Refills: 0 Ordered: 28-May-2021 LUCINA Cowan Start: 10-Oct-2020 End: 28-May-2021 Status: Discontinued loratadine 10 mg oral tablet (6 sources) Allergy 10 MG Oral Tablet ; prn (10 MG) Status: Inactive montelukast 10 mg oral tablet (6 sources) Leukotriene Receptor Antagonist Start: 9 End: 1 take 1 tablet by mouth once daily Montelukast Sodium 10 MG Oral Tablet ; 1 (one) Tablet daily for 0 days Quantity: 90 {Tablet} Refills: 3 Ordered: 24-Jul-2020 LARY Zarate Start: 14-Jul-2018 End: 24-Jul-2020 Status: Inactive oxyCODONE hydrochloride 5 mg oral tablet (1 source) Opioid Agonist Start: 1 End: 1 take 5-10 mg by mouth every four hours as needed Oxycodone Discontinued 5 - 10 MG PO EVERY 4 HOURS NEEDED 30 5 August 02, 2020 3:18pm August 07, 2020 12:03am PARoxetine hydrochloride 20 mg oral tablet (6 sources) Serotonin Reuptake Inhibitor Start: 1 End: 1 take 1 tablet by mouth once daily PAROXETINE HCL, 20MG (Oral Tablet) ; 1 (one) Tablet daily for 0 days Quantity: 30 {Tablet} Refills: 2 Ordered: 07-Apr-2011 LARY Morillo Start: 14-Oct-2010 End: 07-Apr-2011 Status: Inactive predniSONE 20 mg oral tablet (6 sources) Start: 2 End: 2 take 3 tablets by mouth once daily, then take 2 tablets by mouth once daily, then take 1 tablet by mouth once daily, then take 0.5 tablet by mouth once daily predniSONE 20 MG Oral Tablet ; 1 (one) Tablet as directed for 0 days Quantity: 20 {Tablet} Refills: 0 Ordered: 18-Sep-2021 Start: 28-May-2021 End: 18-Sep-2021 Status: Inactive Comments: Take 3tabs qd for 3 days thenTake 2tabs qd for 3 days thenTake 1tab qd for 3 days thenTake 1/2tab qd for 4 days. Comment on above: Take 3tabs qd for 3 days thenTake 2tabs qd for 3 days thenTake 1tab qd for 3 days thenTake 1/2tab qd for 4 days. sertraline 25 mg oral tablet (6 sources) Serotonin Reuptake Inhibitor Start: 2 End: 3 Zoloft 25 mg tablet ; 1 (one) Tablet daily for 0 days Quantity: 90 {Tablet} Refills: 1 Ordered: 30-Oct-2022 ANA Mitchell Start: 16-Dec-2021 End: 30-Oct-2022 Status: Inactive tranexamic acid 650 mg oral tablet (4 sources) Antifibrinolytic Agent Start: 5 End: 5 tranexamic acid (LYSTEDA) 650 mg tablet Take 2 tablets 3 times a day as needed for heavy bleeding up to 5 days. 30 tablet 11 05/11/2024 09/26/2024 Discontinued (Course of therapy completed) triamcinolone acetonide 1 mg/ml topical cream (6 sources) Corticosteroid Start: 7 End: 8 Triamcinolone Acetonide 0.1 % External Cream ; 1 (one) Application(s) two times daily for 0 days Quantity: 80 {Gram} Refills: 0 Ordered: 02-Jun-2017 MERNA MorilloN Suzie Start: 13-Jan-2017 End: 02-Jun-2017 Status: Inactive Twirla 120-30 MCG/24HR Transdermal Patch Weekly (6 sources) Start: 2 End: 2 apply 1 dose transdermal route every week Twirla 120-30 MCG/24HR Transdermal Patch Weekly ; 1 (one) Patch weekly for 0 days Quantity: 9 {Patch} Refills: 0 Ordered: 25-Sep-2021 ANA Mitchell Start: 18-Sep-2021 End: 25-Sep-2021 Status: Discontinued Comments: Wear one patch a week for three weeks. Do not wear a patch on the fourth week. Restart cycle after fourth week. Comment on above: Wear one patch a wee k for three weeks. Do not wear a patch on the fourth week. Restart cycle after fourth week. Problems Active Problems Problem Classification Problem Date Documented Da te Episodic/Chronic Abdominal pain (18 sources) Abdominal pain; Translations: [Unspecified abdominal pain] 06-30-2023 Episodic Allergic reactions (6 sources) Contact dermatitis; Translations: [Unspecified contact dermatitis, unspecified cause] 01-13-2017 Episodic Anxiety disorders (20 sources) Anxiety; Translations: [Anxiety disorder, unspecified] 05-28-2021 Chronic Attention-deficit, conduct, and disruptive behavior disorders (20 sources) Attention deficit disorder with hyperactivity 05-12-2010 Chronic Biliary tract disease (7 sources) Acute cholecystitis due to biliary calculus; Translations: [Calculus of gallbladder with acute cholecystitis without obstruction] 08-01-2020 Episodic Cardiac and circulatory congenital anomalies (1 source) Abnormal umbilical cord 11-06-2024 Chronic Conditions associated with dizziness or vertigo (12 sources) Lightheadedness; Translations: [Dizziness and giddiness] 06-30-2023 Episodic Contraceptive and procreative management (20 sources) Patient encounter status; Translations: [Encounter for other general counseling and advice on contraception] 06-30-2023 Episodic Genitourinary symptoms and ill-defined conditions (1 source) Frequency of micturition; Translations: [Frequent urination] Onset: 02-02-2025 Episodic Headache; including migraine (10 sources) Headache; Translations: [Headache] 09-23-2023 Episodic Menstrual disorders (1 source) Menorrhagia; Translations: [Excessive and frequent menstruation with regular cycle] 05-11-2024 Chronic Mood disorders (18 sources) Depressive disorder; Translations: [Depressive disorder, not elsewhere classified] 05-21-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 Noninfectious gastroenteritis (12 sources) Chronic diarrhea; Translations: [Noninfective gastroenteritis and colitis, unspecified] 06-30-2023 Episodic Other aftercare (20 sources) Long-term (current) use of other medications 12-18-2010 Episodic Other and unspecified benign neoplasm (6 sources) Benign lipomatous tumor; 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, unspecified] 10-14-2010 Episodic Other bone disease and musculoskeletal deformities (12 sources) Jelani Schlatter disease; 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, 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-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 Other complications of (3 sources) Maternal obesity complicating , childbirth and the puerperium, antepartum; Translations: [Obesity complicating , second trimester] Onset: 09-26-2024 11-06-2024 Chronic Other complications of (1 source) Obesity complicating , second trimester; Translations: [Obesity affecting in second trimester, unspecified obesity type (HCC)] Onset: 01-01-2025 Chronic Other complications of (13 sources) High risk ; Translations: [Supervision of high risk , unspecified, unspecified trimester] Onset: 09-26-2024 09-26-2024 Episodic Other complications of (7 sources) Abnormal umbilical cord; Translations: [Maternal care for other specified problems, unspecified trimester, not applicable or unspecified] Onset: 10-11-2024 10-11-2024 Episodic Other complications of (4 sources) RhD negative; Translations: [Other specified related conditions, unspecified trimester] Onset: 11-09-2024 11-09-2024 Episodic Other complications of (1 source) Supervision of high risk , unspecified, second trimester; Translations: [Supervision of high risk in second trimester ([facility])] Onset: 02-02-2025 Episodic Other complications of (1 source) Other specified related conditions, unspecified trimester; Translations: [Rh negative state in antepartum period ([facility])] Onset: 11-09-2024 Episodic Other complications of (1 source) Supervision of high risk , unspecified, unspecified trimester; Translations: [Supervision of high risk , antepartum ([facility])] Onset: 01-01-2025 Episodic Other female genital disorders (1 source) Abnormal uterine and vaginal bleeding, unspecified; Translations: [Vaginal bleeding] Onset: 02-02-2025 Chronic Other gastrointestinal disorders (6 sources) Diarrhea; Translations: [Diarrhea, unspecified] 10-10-2020 Episodic Other lower respiratory disease (6 sources) Persistent cough; Translations: [Cough] 08-07-2015 Episodic Other non-traumatic joint disorders (20 sources) Pain in right shoulder; Translations: [Pain in joint, shoulder region] 07-15-2021 Episodic Other non-traumatic joint disorders (6 sources) Ankle pain; Translations: [Pain in unspecified ankle and joints of unspecified foot] 04-07-2010 Episodic Other nutritional; endocrine; and metabolic disorders (12 sources) Body mass index 30+ - obesity; Translations: [Body mass index (BMI) 38.0-38.9, adult] 06-30-2023 Chronic Other nutritional; endocrine; and metabolic disorders (3 sources) Severe obesity; Translations: [Class 3 severe obesity without serious comorbidity with body mass index (BMI) of 40.0 to 44.9 in adult, unspecified obesity type (HCC)] 09-26-2024 Chronic Other nutritional; endocrine; and metabolic disorders (8 sources) Obesity; Translations: [Obesity, unspecified] Onset: 09-26-2024 09-26-2024 Chronic Other nutritional; endocrine; and metabolic disorders (1 source) Body mass index (BMI) 40.0-44.9, adult; Translations: [Class 3 severe obesity without serious comorbidity with body mass index (BMI) of 40.0 to 44.9 in adult, unspecified obesity type (HCC)] Onset: 09-26-2024 Chronic Other nutritional; endocrine; and metabolic disorders (20 sources) Childhood obesity; Translations: [Body mass index (BMI) pediatric, greater than or equal to 95th percentile for age] 05-28-2021 Episodic Other nutritional; endocrine; and metabolic disorders (12 sources) Weight gain; Translations: [Abnormal weight gain] 11-14-2012 Episodic Other screening for suspected conditions (not mental disorders or infectious disease) (2 sources) Cancer cervix screening status; Translations: [Encounter for screening for malignant neoplasm of cervix] Onset: 01-29-2025 05-11-2024 Episodic Other upper respiratory disease (6 sources) Allergic rhinitis; Translations: [Allergic rhinitis, unspecified] 07-14-2018 Chronic Other upper respiratory infections (5 sources) Sinusitis; Translations: [Chronic sinusitis, unspecified] 12-15-2023 Chronic Other upper respiratory infections (12 sources) Upper respiratory infection; Translations: [Acute upper respiratory infection, unspecified] 04-22-2022 Episodic Otitis media and related conditions (12 sources) Dysfunction of eustachian tube; Translations: [Unspecified Eustachian tube disorder, unspecified ear] 01-13-2017 Episodic Residual codes; unclassified (12 sources) Edema; Translations: [Edema, unspecified] 06-30-2023 Episodic Residual codes; unclassified (3 sources) Gestation period, 6 weeks; Translations: [Less than 8 weeks gestation of ] 09-26-2024 Episodic Residual codes; unclassified (1 source) Gestation period, 8 weeks; Translations: [8 weeks gestation of ] 10-11-2024 Episodic Residual codes; unclassified (3 sources) Gestation period, 12 weeks; Translations: [12 weeks gestation of ] 11-06-2024 Episodic Residual codes; unclassified (1 source) Gestation period, 16 weeks; Translations: [16 weeks gestation of ] 12-04-2024 Episodic Residual codes; unclassified (1 source) 24 weeks gestation of ; Translations: [24 weeks gestation of (HCC)] Onset: 02-02-2025 Episodic Residual codes; unclassified (1 source) Unspecified blood type, Rh negative; Translations: [Rh negative state in antepartum period (HCC)] Onset: 11-09-2024 Episodic Residual codes; unclassified (1 source) 21 weeks gestation of ; Translations: [21 weeks gestation of (HCC)] Onset: 01-10-2025 Episodic Residual codes; unclassified (1 source) 20 weeks gestation of ; Translations: [20 weeks gestation of (FORM[facility]LY [facility])] Onset: 01-01-2025 Episodic Residual codes; unclassified (1 source) 16 weeks gestation of ; Translations: [16 weeks gestation of ([facility])] Onset: 12-04-2024 Episodic Sprains and strains (1 source) Shoulder strain; Translations: [Strain of unspecified muscle, fascia and tendon at shoulder and upper arm level, left arm, initial encounter] Episodic Unclassified (6 sources) Shoulder pain - The onset of the shoulder pain has been gradual following an incident at work (February of 2020) and has been occurring in a persistent pattern for 1 year (Has been chronic since it started at her job. Has been much worse over the past 2-3 weeks after she started weight lifting). The course has been worsening. The pain is characterized as a moderate cramping and burning sensation. The pain is described as being located in the right shoulder (front of shoulder) and is aggravated by physical activity, any movement, work duties, overhead activity, lifting and throwing. Relieving factors include medication (depending on how much Ibuprofen she takes.). The symptoms have been associated with muscle cramps, muscle weakness, painful ROM, decreased ROM, popping/crepitus, burning sensation, difficulty with overhead activities and difficulty with lifting, but have not been associated with muscle atrophy, muscle stiffness, muscle swelling, joint swelling, anterior instability, posterior instability, warmth, erythema, fever, chills, difficulty dressing oneself, difficulty combing hair, difficulty hooking bra, difficulty with pushing or difficulty with pulling. Note for Shoulder pain: Patient was previously seen by a specialist for this shoulder and told she had tendonitis. She did physical therapy for a time and has continued these physical therapy exercises at home. 05-28-2021 Unclassified (6 sources) Follow Up for Multiple Chronic Conditions - The patient is here for follow-up of anxiety. The patient always takes the prescribed medications. No side effects noted. The patient has an active lifestyle but no regular exercise program. The patient's out of office blood pressure checks occur rarely and dietary compliance is fair often eating foods not normally recommended (keto diet). The patient states that in general mood has improved, sleep patterns have improved and they do not have headaches. Note for Multiple chronic conditions follow-up: Pt. needs an rx zoloft today - very happy with current dose 01-03-2018 Unclassified (1 source) Class 3 severe obesity without serious comorbidity with body mass index (BMI) of 40.0 to 44.9 in adult, unspecified obesity type (HCC); Translations: [Class 3 severe obesity without serious comorbidity with body mass index (BMI) of 40.0 to 44.9 in adult, unspecified obesity type (HCC)] Onset: 09-26-2024 Past or Other Problems Problem Classification Problem Date Documented Date Episodic/Chronic Immunizations and screening for infectious disease (1 source) Encounter for screening for infections with a predominantly sexual mode of transmission; Translations: [Screen for STD (sexually transmitted disease)] Onset: 09-26-2024 Episodic Other complications of (1 source) Maternal care for other specified problems, unspecified trimester, not applicable or unspecified; Translations: [Umbilical cord cyst during , antepartum ([facility]LY [facility])] Onset: 10-11-2024 Episodic Other and delivery including normal (2 sources) with uncertain dates; Translations: [Encounter for supervision of normal , unspecified, unspecified trimester] Onset: 09-26-2024 09-26-2024 Episodic Residual codes; unclassified (1 source) 12 weeks gestation of ; Translations: [12 weeks gestation of ([facility])] Onset: 11-06-2024 Episodic Residual codes; unclassified (1 source) Less than 8 weeks gestation of ; Translations: [6 weeks gestation of ([facility])] Onset: 11-06-2024 Episodic Unclassified (6 sources) Dizziness - The dizziness has been occurring for 1 month. The course has been constant. The dizziness is characterized as lightheadedness and feeling in the head. The dizziness is precipitated by position change. There has been associated headache. The dizziness is relieved by rest. The dizziness is exacerbated by getting up quickly. The symptoms have been associated with palpitations. Note for Dizziness: Patient said she has fluid behind her ear drum in the past which she is concerned may be exacerbating her symptoms, she also notes tinnitus. Patient notes swelling of her hands from which she was previously evaluated for by SHEILA which has been present for 1 year. 06-30-2023 Unclassified (6 sources) Edema - The onset of the edema has been gradual and has been occurring in a persistent pattern for 2 weeks (in the past, she would occasionally notice swelling of her fingers and ankles but has been occurring daily for about the past 2 weeks) . The edema occurs in the evening (Ankles are worse in the evening, hands are swollen after sleeping). The edema is characterized as mild , and the course of the edema has been increasing. It affects both lower extremities (ankles, after wearing socks--she will notice an indent. Been noticing swelling of her calf area as well. Also has swelling of her fingers that occurs after sleeping or taking a nap.). There were no precipitating factors. The symptoms have not been relieved by any method. There have been no associated symptoms. Note for Edema: Patient reports her LMP started October 12 and ended October 16. She and her partner currently use condoms as control. 10-30-2022 Unclassified (6 sources) Cold Symptoms - Symptoms include sneezing, nasal congestion, runny nose, ear pain, sore throat, dry cough, productive cough, general malaise (fatigue, denies body aches), headache and facial pain, but do not include wheezing, fever or chills. The onset was gradual 2 week(s) ago. The symptoms occur constantly. The patient describes this as moderate in severity and worsening. Current treatment includes non-prescription cold medication, allergy medications, acetaminophen and NSAIDs. The patient has been exposed to an individual with similar symptoms (family members). Patient denies history of seasonal allergies, recurrent sinusitis, recurrent strep pharyngitis, asthma or recurrent ear infections. 04-22-2022 Unclassified (6 sources) Abdominal pain - The onset of the abdominal pain has been sudden and has been occurring in a persistent pattern for 2 months. The course has been increasing. The pain is described as a moderate cramping. The pain is located in the epigastrium and does not radiate. The symptoms are aggravated by meals (1/2 to 1 hour after eating) (states right after eating.) but are relieved by nothing (Has tried Imodium but states it only helps a little). The symptoms have been associated with bloating, diarrhea (Reports 5-6 loose bowel movements a day. She states that she usually has to have a bowel movement 15-20 minutes after she eats.), heartburn and nausea, while the symptoms have not been associated with bloody stools, constipation, fever, vomiting or weight loss. Note for Abdominal pain: Had gallbladder removal July 2020. Reports that she was having similar symptoms for 1-2 months after her surgery, but these resolved. Her symptoms did not return until 2 months ago.She denies any new life stressors or increased anxiety. 12-11-2021 Unclassified (1 source) Anxiety - The onset of the anxiety has been gradual and has been occurring in a persistent pattern for years. The course has been increasing (Patient has been treated with several different medications in the past. She had the most success with Zoloft. She has been off medication for some time and feels like her symptoms are worsening to the point where she feels she needs a medication again.). The anxiety is characterized as apprehension, expectant dread and nervousness. There are no specific phobias. There were no precipitating factors. There has been no associated chest pain, diarrhea, dizziness, feeling of sadness, headache, insomnia, lightheadedness, migraine, palpitations, paresthesias, suicidal thoughts or weight loss. 09-18-2021 Unclassified (1 source) [ADDITIONAL REASON] control (initial visit) - Parental consent was not necessary. Previous methods of contraception have included: oral contraceptives (Patient took OCP in the past, but this did not work well for her. She often forgot to take her pills.). The prior methods were considered to be successful yet inconvenient. Previous pregnancies: none. Previous abortions/miscarriage s: none. The patient reports symptoms of menstrual irregularities, while she denies headaches or jaundice. There is no STD history pertinent to this complaint. Note for Contraception : Patient reports that she has done research and she is interested in using hormonal patches. 09-18-2021 Unclassified (6 sources) Abdominal pain - The onset of the abdominal pain has been gradual and has been occurring in an intermittent pattern for 2 months. The course has been constant. The pain is described as a moderate dull ache (she stated that it is very tender anytime she eats anything. she has noticed it is more tender today.). The pain is located in the right upper quadrant and does not radiate. The symptoms are aggravated by meals (1/2 to 1 hour after eating) but have no relieving factors. The symptoms have been associated with bloody stools (bright red, just this week on TP only), while the symptoms have not been associated with abdominal distention, bulky stools, chest pain, constipation, diarrhea (stool is solid but she is going 5-6 times a day), dysuria, fever, heartburn, nausea or vomiting. Note for Abdominal pain: pt had gallbladder taken out in 10-10-2020 Unclassified (6 sources) Abdominal pain - The onset of the abdominal pain has been acute and has been occurring in an intermittent pattern for 3 weeks. The course has been recurrent. The pain is described as a moderate burning, sharp pain, stabbing, dull ache and pressure sensation. The pain is located in the epigastrium and radiates to the back (between shoulder blades). The symptoms have no aggravating factors. The symptoms have been associated with bloating, constipation and nausea (she has been nauseas x 4 days), while the symptoms have not been associated with dark urine, diarrhea, fever, heartburn, hematuria, jaundice or vomiting. Note for Abdominal pain: started after taking short course of steroids for shoulder tendonitis 07-24-2020 Unclassified (6 sources) Well Adult, female - The patient feels well with minor complaints (persistent couogh), has good energy level and is sleeping well. The first day of the last menstrual period was : (07/11/18 (Pt. c/o frequent menstrual cramping)). The patient is not using any method of contraception at this time. The patient has an inappropriate diet and takes no supplemental vitamins & iron. The patient does not exercise. The patient sleeps 9 hours per night. 07-14-2018 Unclassified (6 sources) follow up medication - patient started on zoloft 25mg 08/10/17 for anxiety, she states the meds are working great and she feels much improvement. Sleeping well, no SE noted....would like to remain on current dosage 08-31-2017 Unclassified (6 sources) Anxiety - The onset of the anxiety has been gradual and has been occurring in a persistent pattern for months. The course has been increasing. The anxiety is characterized as apprehension, expectant dread, sinking feeling, nervousness and extreme fear. The phobia is defined as social phobias. There were no precipitating factors. The symptoms have been associated with chest pain and palpitations, but have not been associated with paresthesias or suicidal thoughts. Note for Anxiety: mom and sister both have anxiety/depression issues; she denies suicidal thoughts/ideation; feels that her anxiety arises from feeling overwhelmed - denies any specific triggers, just feels that she can't handle her current stressors (school, work, moving, etc) 08-10-2017 Unclassified (6 sources) Ear pain - The onset of the pain has been acute and has been occurring in an intermittent pattern for 4 days. The course has been recurrent. The pain is described as a moderate stabbing and pressure. The pain is felt in both ears (right ear is worse). There has been no associated chills or fever. Note for Ear pain: seen 12/28 for bilateral OMpatient said when coughing or laughing feels like area around ear is hurting and needles stabbing area.rash on right hip. from [facility]?reviewed by [facility] 01-13-2017 Unclassified (6 sources) Cold Symptoms - Symptoms include nasal congestion, runny nose, purulent discharge, ear pain, sore throat, dry cough (chest discomfort), fever, chills, general malaise, headache and facial pain, but do not include sneezing. The onset was gradual 2 week(s) ago. The symptoms occur constantly. The patient describes this as moderate in severity and worsening. Current treatment includes non-prescription cold medication (tried several), cough suppressants and acetaminophen. Risk factors do not include smoking. The patient has been exposed to an individual with similar symptoms. Medical history includes seasonal allergies, asthma (exercise asthma) and recurrent ear infections, but patient denies history of recurrent sinusitis or tonsillectomy. 12-28-2016 Unclassified (6 sources) Cold Symptoms - Symptoms include nasal congestion, runny nose, dry cough, fever (only at night 101 intermittently), chills, general malaise and headache, but do not include ear pain or sore throat. The onset was gradual (A month ago when symptoms first started she went to a STAT clinic in [place] and was told she had allergies; monospot and rapid strep were negative at that time. She has tried edith and zyrtec without improvement; hasn't taken an antihistamine x a few days. Cough is disturbing class. Cough is worse with exercise. Mom is questioning asthma. ) month(s) ago. The symptoms occur constantly. The patient describes this as moderate in severity and unchanged. Current treatment includes non-prescription cold medication and allergy medications. Medical history includes seasonal allergies and recurrent ear infections (as child), but patient denies history of recurrent sinusitis, recurrent strep pharyngitis, asthma (?) or tonsillectomy. 08-07-2015 Unclassified (6 sources) Consultation - Mother (Francine) here to discuss patient problems, mood disorder. ( Patient is not here for visit ). She was tried on paxil a few years ago but this was eventually d/c due to weight gain. Anxiety issues run in family in general. No bipolar or schizophrenia in family.Pt dropped off from [employer] to Ds and Fs. She is overweight and gets bullied at school. Pt gets angry easily. She reports dreams of hanging herself but denies suicidal intent. When she was on meds i n the past it was similarly for anger issues and anxiety. Parents do not suspect durg use or physical/sexual abuse 05-21-2014 Unclassified (6 sources) Lump on Knee - 13 year old that is here this evening accompanied by mom because she has had a lump on right knee. She first noticed lump about 6-7 months ago when she was in track. She noticed pain and then saw there is a lump below the knee. It was about the size of a marble initially and it has grown bigger (is now the size of a 50 cent piece). Area is painful all the time but worse when she is running on it. Rest of time it just feels achy. She is in a fit and wellness program at school and it is starting to interfere with that. Pt has used ice/heat and even tried wrapping knee but nothing seems to be helping. 02-12-2014 Unclassified (6 sources) Well child visit #4 - 13 to 17 years - The child is here for a 13 to 14 year well-child visit. The primary caregiver is the mother and father. Family status: coping adequately. There are no behavioral problems. The patient has a balanced diet and takes supplemental vitamins. There are no eating difficulties. Meals/day: 3. The child sleeps 9 hours at night. Menstruation: regular periods. The child performs well in school, interacts well with peers and participates in extracurricular activities. Safety measures taken include appropriate use of safety belts. Note for Well child visit #4 - 13 to 17 years: Plans to do track. 06-15-2013 Unclassified (6 sources) Mood Swings - The onset of the mood swings has been variable and they have been occurring in a persistent pattern for 3 years. The course has been increasing. The mood swings are described as severe (At times.). There has been associated anger, depression and anxiety, while there has been no associated decreased need for sleep. Note for Mood swings: She was on Paxil in the past and did well for sx control but gained a lot of weight. We then tried her on fluoxetine instead. That seemed to control daytime sx ok but not night time sx. Meds were stopped at that point. José w father, mother was concerned about bipolar although no other family members have bipolar . 11-28-2012 Unclassified (6 sources) Night time anxiety - Stopped taking both medications. Is having panic attacks every night at bed time. Doing well at [facility] [employer] and during the day . Nightitme sx are similar to before started the meds. Awake long periods at night, nocturnal fears , sleeps with lights on. These sx had all been alleviated by paxil in past. Parents are concerned about weight gain on paxil. 03-25-2011 Unclassified (6 sources) stiff neck - Has been complaining of stiff neck with some swellingat base of neck for 1 month. Swelling is worse in the evening. 10-14-2010 Unclassified (5 sources) med refill - pt needs refill on her adderall 10mg, pt is doing well with no concerns. Thriving in school, no signs of side effects 04-07-2010 Unclassified (5 sources) [ADDITIONAL REASON] Ankle pain - The onset of the pain has been sudden following an incident not at work (2 years ago). Note for Ankle pain: ankle gets swoolen and pain followinf physical activity. Pt had sever ankle fracture sevreal years ago 04-07-2010 Unclassified (5 sources) Cold Symptoms - Symptoms include ear pain and headache. The onset was sudden 4 day(s) ago. The symptoms occur constantly. The patient describes this as moderate in severity and worsening. The patient is not currently being treated for this problem. Note for Upper respiratory infection: Patient states she has had a headache for 4 days now. Has tried ibuprofen, Midol, and acetaminophen OTC with no relief of symptoms, last dose of Ibuprofen taken at 10pm last evening. States her (L) ear is now bothering her as well. States no other symptoms, no nausea, photosensitivity, visual changes, syncope, or confusion. Rates pain a 09/19-10/19. 09-23-2023 Unclassified (5 sources) control (initial visit) - Parental consent was not necessary. Previous methods of contraception have included: oral contraceptives (Patient took OCP in the past, but this did not work well for her. She often forgot to take her pills.). The prior methods were considered to be successful yet inconvenient. Previous pregnancies: none. Previous abortions/miscarriage s: none. The patient reports symptoms of menstrual irregularities, while she denies headaches or jaundice. There is no STD history pertinent to this complaint. Note for Contraception : Patient reports that she has done research and she is interested in using hormonal patches. 09-18-2021 Unclassified (5 sources) [ADDITIONAL REASON] Anxiety - The onset of the anxiety has been gradual and has been occurring in a persistent pattern for years. The course has been increasing (Patient has been treated with several different medications in the past. She had the most success with Zoloft. She has been off medication for some time and feels like her symptoms are worsening to the point where she feels she needs a medication again.). The anxiety is characterized as apprehension, expectant dread and nervousness. There are no specific phobias. There were no precipitating factors. There has been no associated chest pain, diarrhea, dizziness, feeling of sadness, headache, insomnia, lightheadedness, migraine, palpitations, paresthesias, suicidal thoughts or weight loss. 09-18-2021 Unclassified (1 source) Ankle pain - The onset of the pain has been sudden following an incident not at work (2 years ago). Note for Ankle pain: ankle gets swoolen and pain followinf physical activity. Pt had sever ankle fracture sevreal years ago 04-07-2010 Unclassified (1 source) [ADDITIONAL REASON] med refill - pt needs refill on her adderall 10mg, pt is doing well with no concerns. Thriving in school, no signs of side effects 04-07-2010 Unclassified (2 sources) Cold Symptoms - Symptoms include nasal congestion, ear pain, ear fullness, headache and facial pain, but do not include runny nose, sore throat, dry cough, productive cough, wheezing, fever, chills or general malaise. The onset was sudden 1 week(s) ago. The symptoms occur constantly. The patient describes this as moderate in severity and worsening. Current treatment includes non-prescription cold medication, allergy medications, nasal corticosteroids, acetaminophen and home remedies. Risk factors do not include child in daycare or smoking. The patient has not been exposed to an individual with a cough, an individual with an upper respiratory infection or an individual with similar symptoms. Medical history includes seasonal allergies, but patient denies history of recurrent sinusitis or recurrent ear infections. 12-15-2023 NEGATED: Highlighted row has been ruled out!Unclassified (2 sources) No Known / History Onset: 12-15-2023 12-15-2023 Results Test Name Value Interpretation Reference Range Facil ity BACTERIAL VAGINOSIS NAATon Lactobacillus crispatus+gasseri+j ensenii + Gardnerella vaginalis + Atopobium vaginae rRNA ADELA+probe Ql (Vag fld) Not detected Normal Not detected [facility] Comment on above: Order Comment: Speci men Type: SWABOrdering Facility: [facility] Address: [address] [place] [address] Performed By: #### C VTV, BVAMP ####[facility] [id number] [place] [address] [place] Bacteria Ur Culton Bacteria identified Cx Nom (U) ORGANISM ID: 1 10,000 -<50,000 CFU/ml Normal urogenital carloz Normal [facility] Comment on above: Performed By: #### T SPN #### [facility] CLIA [id number] [address] [place], [place] [address] [address] [place] DEYVI/TRICHOMONAS NAATon 1 C. glabrata RNA ADELA+probe Ql (Vag fld) Not detected Normal Not detected [facility] Comment on above: Order Comment: Speci men Type: SWABOrdering Facility: [facility] Address: [address] [place] [address] Performed By: #### C VTV, BVAMP ####[facility] LAB[facility]IA [id number] [place] [address] [place] Deyvi sp DNA ADELA+probe Ql (Vag fld) Not detected Normal Not detected [facility] Comment on above: Order Comment: Speci men Type: SWABOrdering Facility: [facility] Address: [address] [place] [address] Result Comment: The Deyvi species group target includes C. albicans, C. tropicalis, C. parapsilosis, and C. dubliniensis. Performed By: #### C VTV, BVAMP ####[facility]IA [id number] [place] [address] [place] T. vaginalis DNA ADELA+probe Ql (Unsp spec) Not detected Normal Not detected [facility] Comment on above: Order Comment: Speci men Type: SWABOrdering Facility: [facility] Address: [address] [place] [address] Performed By: #### C VTV, BVAMP ####[facility]CLIA [id number] [place] [address] [place] TYPE + SCREEN PRENATALon ABO O Normal [facility] Comment on above: Order Comment: Speci men Type: BLOOD SPECIMEN [facility] Address: [address] [place] [address] Performed By: #### T SPN #### [facility] CLIA [id number] [address] [place] [address] [place] Rh Nom (Bld) Negative Normal [facility] Comment on above: Order Comment: Speci men Type: BLOOD SPECIMEN [facility] Address: [address] [place] [address] Performed By: #### T SPN #### [facility] CLIA [id number] TYPE AND SCREEN EXPIRATION 02/05/2025 23:[address] [facility] Comment on above: Order Comment: Speci men Type: BLOOD SPECIMEN [facility] Address: [address] [place] [address] [place] [address] Performed By: #### T SPN #### [facility] CLIA [id number] [address] [place] [address] CNPNon 01-09-2025 CNPN Telephone (OBGYWM) SENA HARTMAN ([id number]) 1 F Date Time Provider Department 01/09/25 AMELIA MENDOZA During your visit today, we recorded the following information about you: Raymond Pierre RN 01/09/2025 10:17 AM Signed 21w3d At 16 week appt saw [facility] AND mentioned her belly button was tender, was told to call back if worse, went away AND Pt states last , started back up. Pt calls stating this morning is the worst it has been, C/o area around belly button tender/ does not hurt inside/states nothing is inside. When bending down, feels raw. Denies itching/burning. No open areas, no drainage, no redness, no dryness. +FM. Has not tried anything. Pt asking what is recommended to help with this. Would like to first know what is recommended and if needs to be seen, will schedule appt. Please advise. ANA Wade Jessica, APRN.CNM 01/09/2025 10:20 AM Signed I would recommend appointment to further assess in the next few days. Thanks, MARLENE Parks Tara, RN 01/09/2025 10:44 AM Signed Pt notified AND appt scheduled tomorrow AM with AT. Pt advised in meantime to call office [facility] develops severe abdominal pain, vaginal bleeding, and/or decreased movement. Pt voiced understanding. Raymond Pierre RN Allergies As of Date: 01/09/2025 Noted Allergy Reaction SULFA (SULFONAMIDE ANTIBIOTICS) 06/15/2015 4 - Hives Date Reviewed: 01/01/2025 Reviewed by: Claribel Keita MA - Fully Assessed Reason for Visit: Tenderness around belly button [Other] Prescriptions as of 01/09/2025 - no115/iron/folic acid ( 19 ORAL) Take 1 tablet by mouth once daily. 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 CBC W Auto Differential pane l (Bld)on 11-06-2024 Basophils (Bld) [#/Vol] 0.04 10*3/uL Normal <0.11 [facility] Comment on above: Order Comment: Speci men Type: BLOOD SPECIMENOrdering Facility: [facility] Address: [address] [place] [address] Performed By: #### [id number] ####[facility] [id number] [place] [address] [place] Basophils/100 WBC (Bld) 0.3 % Normal [facility] Comment on above: Order Comment: Speci men Type: BLOOD SPECIMENOrdering Facility: [facility] Address: [address] [place] [address] Performed By: #### 5 7021-8 ####[facility] [id number] [place] [address] [place] Differential cell count method Nom (Bld) Auto Normal [facility] Comment on above: Order Comment: Speci men Type: BLOOD SPECIMENOrdering Facility: [facility] Address: [address] [place] [address] Performed By: #### 5 7021-8 ####[facility] TRAVISCortneyNCJOHNNYCarlos [id number] [place] [address] [place] Eosinophils (Bld) [#/Vol] 0.04 10*3/uL Normal <0.46 [facility] Comment on above: Order Comment: Speci men Type: BLOOD SPECIMENOrdering Facility: [facility] Address: [address] [place] [address] Performed By: #### 5 7021-8 ####[facility] HOS[facility]ITALLETI [id number] [place] [address] [place] Eosinophils/100 WBC (Bld) 0.3 % Normal [facility] Comment on above: Order Comment: Speci men Type: BLOOD SPECIMENOrdering Facility: [facility] Address: [address] [place] [address] Performed By: #### 5 7021-8 ####[facility] [id number] [place] [address] [place] Erythrocyte distribution width (RBC) [Ratio] 12.3 % Normal 11.5-15.0 [facility] Comment on above: Order Comment: Speci men Type: BLOOD SPECIMENOrdering Facility: [facility] Address: [address] [place] [address] Performed By: #### 5 7021-8 ####[facility]ITALNCLIA [id number] [place] [address] [place] Hematocrit (Bld) [Volume fraction] 37.3 % Normal 36.0-46.0 [facility] Comment on above: Order Comment: Speci men Type: BLOOD SPECIMENOrdering Facility: [facility] Address: [address] [place] [address] Performed By: #### 5 7021-8 ####[facility]ITALNCLIA [id number] [place] [address] [place] Hemoglobin (Bld) [Mass/Vol] 13.1 g/dL Normal 11.5-15.5 [facility] Comment on above: Order Comment: Speci men Type: BLOOD SPECIMENOrdering Facility: [facility] Address: [address] [place] [address] Performed By: #### 5 7021-8 ####[facility]ITALNCLIA [id number] [place] [address] [place] Immature granulocytes (Bld) [#/Vol] 0.03 10*3/uL Normal <0.10 [facility] Comment on above: Order Comment: Speci men Type: BLOOD SPECIMENOrdering Facility: [facility] Address: [address] [place] [address] Performed By: #### 5 7021-8 ####[facility]ITALNCLIA [id number] [place] [address] [place] Immature granulocytes/100 WBC (Bld) 0.2 % Normal [facility] Comment on above: Order Comment: Speci men Type: BLOOD SPECIMENOrdering Facility: [facility] Address: [address] [place] [address] Performed By: #### 5 7021-8 ####[facility] CENTERLIA [id number] [place] [address] [place] Lymphocytes (Bld) [#/Vol] 2.11 10*3/uL Normal 1.00-4.00 [facility] Comment on above: Order Comment: Speci men Type: BLOOD SPECIMENOrdering Facility: [facility] Address: [address] [place] [address] Performed By: #### 5 7021-8 ####[facility]ONCarl[facility] [id number] [place] [address] [place] Lymphocytes/100 WBC (Bld) 17.3 % Normal [facility] Comment on above: Order Comment: Speci men Type: BLOOD SPECIMENOrdering Facility: [facility] Address: [address] [place] [address] Performed By: #### 5 7021-8 ####[facility] HOSPITALIVETT [id number] [place] [address] [place] MCH (RBC) [Entitic mass] 29.3 pg Normal 26.0-34.0 [facility] Comment on above: Order Comment: Speci men Type: BLOOD SPECIMENOrdering Facility: [facility] Address: [address] [place] [address] Performed By: #### 5 7021-8 ####[facility] HOSPITALIVETT [id number] [place] [address] [place] MCHC (RBC) [Mass/Vol] 35.1 g/dL Normal 30.5-36.0 [facility] Comment on above: Order Comment: Speci men Type: BLOOD SPECIMENOrdering Facility: [facility] Address: [address] [place] [address] Performed By: #### 5 7021-8 ####[facility] HOSPITALIVETT [id number] [place] [address] [place] MCV (RBC) [Entitic vol] 83.4 fL Normal 80.0-100.0 [facility] Comment on above: Order Comment: Speci men Type: BLOOD SPECIMENOrdering Facility: [facility] Address: [address] [place] [address] Performed By: #### 5 7021-8 ####[facility]ITALIVETT [id number] [place] [address] [place] Monocytes (Bld) [#/Vol] 0.51 10*3/uL Normal <0.87 [facility] Comment on above: Order Comment: Speci men Type: BLOOD SPECIMENOrdering Facility: [facility] Address: [address] [place] [address] Performed By: #### 5 7021-8 ####[facility] CENTERLIA [id number] [place] [address] [place] Monocytes/100 WBC (Bld) 4.2 % Normal [facility] Comment on above: Order Comment: Speci men Type: BLOOD SPECIMENOrdering Facility: [facility] Address: [address] [place] [address] Performed By: #### 5 7021-8 ####[facility] HOSPITALNCA [id number] [place] [address] [place] Neutrophils (Bld) [#/Vol] 9.44 10*3/uL High 1.45-7.50 [facility] Comment on above: Order Comment: Speci men Type: BLOOD SPECIMENOrdering Facility: [facility] Address: [address] [place] [address] Performed By: #### 5 7021-8 ####[facility] [id number] [place] [address] [place] Neutrophils/100 WBC (Bld) 77.7 % Normal [facility] Comment on above: Order Comment: Speci men Type: BLOOD SPECIMENOrdering Facility: [facility] Address: [address] [place] [address] Performed By: #### 5 7021-8 ####[facility] CENTERLIA [id number] [place] [address] [place] Nucleated RBC (Bld) [#/Vol] 10*3/uL Normal <0.01 [facility] Comment on above: Order Comment: Speci men Type: BLOOD SPECIMENOrdering Facility: [facility] Address: [address] [place] [address] Performed By: #### 5 7021-8 ####[facility] MILLWNCLIA [id number] [place] [address] [place] Nucleated RBC/100 WBC (Bld) [Ratio] 0.0 /[address] [facility] Comment on above: Order Comment: Speci men Type: BLOOD SPECIMENOrdering Facility: [facility] Address: [address] [place] [address] Performed By: #### 5 7021-8 ####[facility] HOSPITALVLADLIA [id number] [place] [address] [place] Platelet mean volume (Bld) [Entitic vol] 10.2 fL Normal 9.0-12.7 [facility] Comment on above: Order Comment: Speci men Type: BLOOD SPECIMENOrdering Facility: [facility] Address: [address] [place] [address] Performed By: #### 5 7021-8 ####[facility] [id number] [place] [address] [place] Platelets (Bld) [#/Vol] 237 10*3/uL Normal 150-400 [facility] Comment on above: Order Comment: Speci men Type: BLOOD SPECIMENOrdering Facility: [facility] Address: [address] [place] [address] Performed By: #### 5 7021-8 ####[facility] CENTERLIA [id number] [place] [address] [place] RBC (Bld) [#/Vol] 4.47 10*6/uL Normal 3.90-5.20 [facility] Comment on above: Order Comment: Speci men Type: BLOOD SPECIMENOrdering Facility: [facility] Address: [address] [place] [address] Performed By: #### 5 7021-8 ####[facility] CENTERLIA [id number] [place] [address] [place] WBC (Bld) [#/Vol] 12.17 10*3/uL High 3.70-11.00 [facility] Comment on above: Order Comment: Speci men Type: BLOOD SPECIMENOrdering Facility: [facility] Address: [facility] [place] [id number] Performed By: #### 5 7021-8 ####[facility] STATE HOSPITALLIA [id number] [place] [address] [place] CNCOon 11-06-2024 [address]CO [address] Text Normal [facility] Examination level ultrasound on 11-06-2024 Indication First trimester anatomic survey Maternal obesity, BMI >40 Impression The patient is referred for a first trimester anatomy scan including nuchal translucency measurement as clinically indicated. - Single, live, intrauterine . - Gamerco rump length measurement is consistent with the established gestational age. - A qualitative screen of the nuchal translucency and other anatomic structures was unremarkable on an incomplete first trimester anatomic assessment. - Not all structural malformations can be detected by ultrasound examination. Recommendations - A standard anatomic survey at 16 weeks and a detailed exam at 20 weeks is recommended for increased risk. Maternal Assessment Height 163 cm Height (ft) 5 ft Height (in) 4 in Physical Exam Initial weight (lb) 251 lb Initial BMI 43.08 kg/m Maternal assessment other: 1 Para 0 REMOTE READ Method Transabdominal ultrasound examination. View: Suboptimal view: limited by maternal body habitus Gonzalez . Number of fetuses: 1 Dating LMP on: 08/01/2024 GA by LMP 13 w + 6 d GREGORY by LMP: 05/08/2025 GA by prior assessment 12 w + 2 d GREGORY by prior assessment: 05/19/2025 Ultrasound examination on: 11/06/2024 GA by U/S based upon: CRL GA by U/S 12 w + 4 d GREGORY by U/S: 05/17/2025 Assigned: based on stated GREGORY, selected on 11/06/2024 Assigned GA 12 w + 2 d Assigned GREGORY: 05/19/2025 General Evaluation Cardiac activity present Placenta: posterior Cord vessels: 3 vessel cord Amniotic fluid: normal amount Biometry Standard FHR 155 bpm CRL 61.6 mm 12w 4d 62% [facility]lock First Trimester Anatomy Calvarium: normal Falx cerebri: normal Choroid plexus: normal Profile: normal Nasal bone: normal Retronasal triangle: normal Maxilla: normal Mandible: normal Nuchal translucency: Unremarkable Situs: normal Cardiac position: normal Cardiac axis: suboptimal 4-chamber view: suboptimal 4-chamber view with color: suboptimal [id number] view: suboptimal Abdominal cord insertion: normal Stomach: normal Kidneys: suboptimal Bladder: normal Color doppler of perivesical umbilical arteries: normal Vertebral alignment: normal Arms: normal Hands: normal Legs: normal Feet: normal Maternal Structures Uterus / Cervix Uterus: Visualized Uterus length 136 mm Uterus width 94 mm Uterus height 82 mm Uterus Vol 550.1 cm Ovaries / Tubes / Adnexa Rt ovary: Not visualized Lt ovary: Not visualized Performed By: Deysi Rodgers RDMS, RVT Read By: Tasha Mondragon M.D. MATERNAL MEDICINE [facility] Radiology Study observation (narrative) [facility] HBV surface Ag Ser 10-11 HBV surface Ag Ql (S) Negative Normal Negative [facility] Comment on above: Order Comment: Speci men Type: BLOOD SPECIMEN [facility] Address: [address] [place] [address] Performed By: #### T SPN #### [facility] CLIA [id number] [address] [place] [address] [place] HCV Ab Ser 11-06-2024 HCV Ab Ql (S) Negative Normal Negative [facility] Comment on above: Order Comment: Speci men Type: BLOOD SPECIMEN [facility] Address: [address] [place] [address] Result Comment: The result suggests no evidence of infection with Hepatitis C virus. Should recent infection be suspected, repeat testing may be considered 4-6 weeks after this draw. Performed By: #### T SPN #### [facility] CLIA [id number] [address] [place] [address] [place] HIV 1+2 Ab IA Ql HIV 1 and 2 Ab IA.rapid Nom (S/P/Bld) Normal [facility] Comment on above: Order Comment: Speci men Type: BLOOD SPECIMEN [facility] Address: [address] [place] [address] Result Comment: Test not indicated. Performed By: #### T SPN #### [facility] CLIA [id number] [address] [place] [address] [place] HIV 1+2 Ab+HIV1 p24 Ag IA Ql Non-Reactive Normal Nonreactive [facility] Comment on above: Order Comment: Speci men Type: BLOOD SPECIMEN [facility] Address: [address] [place] [address] Performed By: #### T SPN #### [facility] CLIA [id number] [address] [place] [address] [place] HIV immunoassay testing algorithm interpretation (S/P/Bld) [Interp] Normal [facility] Comment on above: Order Comment: Speci men Type: BLOOD SPECIMEN [facility] Address: [address] [place] [address] Result Comment: No e vidence of HIV-1 or HIV-2 infection. Should recent infection be suspected, repeat testing may be considered 2-3 weeks after this draw. [place] Rev. Code 3701.243(E): This information has been disclosed to you from confidential records protected from disclosure by state law. You shall make no further disclosure of this information without the specific, written, and informed release of the individual to whom it pertains or as otherwise permitted by state law. A general authorization for the release of medical or other information is not sufficient for the purpose of the release of HIV test results or diagnoses. Performed By: #### T SPN #### [facility] CLIA [id number] [address] [place] [address] [place] HbA1c (Bld)on 11-06-2024 Average glucose Estimated from glycated hemoglobin (Bld) [Mass/Vol] 100 mg/dL Normal [facility] Comment on above: Order Comment: Speci men Type: BLOOD SPECIMENOrdering Facility: [facility] Address: [address] [place] [address] Result Comment: eAG: (Estimated average glucose) is a calculated value from HgbA1c and is pharmaceutical specialty representative of the average blood glucose level in the last 2-3 month period. Performed By: #### 5 5454-3 ####[facility] LABCLIA [id number] [place] [address] [place] HbA1c (Bld) [Mass fraction] 5.1 % Normal 4.3-5.6 [facility] Comment on above: Order Comment: Speci men Type: BLOOD SPECIMENOrdering Facility: [facility] Address: [address] [place] [address] Result Comment: Amer [place] Diabetes Association guidelines indicate that patients with HgbA1c in the range 5.7-6.4% are at increased risk for development of diabetes, and intervention by lifestyle modification may be beneficial. HgbA1c greater or equal to 6.5% is considered diagnostic of diabetes. Performed By: #### 5 5454-3 ####[facility] LABCLIA [id number] [place] [address] [place] [id number] PLUSon 11-06-2024 Cell-free DNA./Cell-free DNA.total Dosage of chromosome-specific cfDNA (cfDNA) [Molar fraction] 12% Normal [facility] Comment on above: Order Comment: Speci men Type: BLOOD SPECIMEN [facility] Address: [address] [place] [address] Performed By: #### T SPN #### [facility] CLIA [id number] [address] [place] [address] [place] Chr 13+18+21+X+Y aneuploidy Dosage of chromosome-specific cfDNA Ql (cfDNA) Negative Normal [facility] Comment on above: Order Comment: Speci men Type: BLOOD SPECIMEN [facility] Address: [address] [place] [address] Performed By: #### T SPN #### [facility] CLIA [id number] [address] [place] [address] [place] Chr 21 trisomy Dosage of chromosome-specific cfDNA Ql (cfDNA) Negative Normal [facility] Comment on above: Order Comment: Speci men Type: BLOOD SPECIMEN [facility] Address: [address] [place] [address] Performed By: #### T SPN #### [facility] CLIA [id number] [address] [place] [address] [place] Chr X and Y aneuploidy risk Sequencing Ql (cfDNA) [Interp] Not detected Normal [facility] Comment on above: Order Comment: Speci men Type: BLOOD SPECIMEN [facility] Address: [address] [place] [address] Result Comment: Not Detected Not Detected Performed By: #### T SPN #### [facility] CLIA [id number] [address] [place] [address] [place] Citation Reggie (Reference lab test) Comment Normal [facility] Comment on above: Order Comment: Speci men Type: BLOOD SPECIMEN [facility] Address: [address] [place] [address] Result Comment: 1. P fiorella DYSON et al. Ernestina Med. 2012;14(3):296-305. 2. Mateo RAMIREZ, et al. Prenat Diag. 2013;33(6):591-597. 3. Blayne Rodriguez et al. Clin Chem. 2015 Apr;61(4):608-616. 4. Yumiko DYSON et al. Ernestina Med. 2011;13(11):913-920. 5. ACOG/SMFM Practice Bulletin No. 226, Jan 2020. Performed By: #### T SPN #### [facility] CLIA [id number] [address] [place] [address] [place] Gestational age Estimated from conception date Gonzalez Normal [facility] Comment on above: Order Comment: Speci men Type: BLOOD SPECIMEN [facility] Address: [address] [place] [address] Performed By: #### T SPN #### [facility] CLIA [id number] [address] [place] [address] [place] GESTATIONALAGE AGE > OR = 9W Yes Normal [facility] Comment on above: Order Comment: Speci men Type: BLOOD SPECIMEN [facility] Address: [address] [place] [address] Performed By: #### T SPN #### [facility] CLIA [id number] [address] [place] [address] [place] Laboratory comment Reggie (Report) Comment Normal [facility] Comment on above: Order Comment: Speci men Type: BLOOD SPECIMEN [facility] Address: [address] [place] [address] Result Comment: The MaterniT(R) 21 PLUS laboratory-developed test (LDT) analyzes circulating cell-free DNA from a maternal blood sample. This test is used for screening purposes and not diagnostic. Clinical correlation is recommended. Validation data on twin pregnancies is limited and the ability of this test to detect aneuploidy in higher multiple gestations has not yet been validated. Performed By: #### T SPN #### [facility] CLIA [id number] [address] [place] [address] director toxicology name Nom (Provider) Comment Normal [facility] Comment on above: Order Comment: Speci men Type: BLOOD SPECIMEN [facility] Address: [address] [place] [address] Result Comment: This specimen showed an expected representation of chromosome 21, 18 and 13 material. Clinical correlation is suggested. Comment Micheal Owen MD, PhD, Director, [facility] Performed By: #### T SPN #### [facility] CLIA [id number] [address] [place] [address] [place] LIMITATIONS OF THE TEST Comment Normal [facility] Comment on above: Order Comment: Speci men Type: BLOOD SPECIMEN [facility] Address: [address], [place] [address] Result Comment: Karis gee the results of these tests are highly reliable, discordant results, including inaccurate sex prediction, may occur due to placental, maternal, or mosaicism or neoplasm; vanishing twin; prior maternal organ transplant; or other causes. These tests are screening tests and not diagnostic; they do not replace the accuracy and precision of diagnosis with CVS or amniocentesis. A patient with a positive test result should be referred for genetic counseling and offered invasive diagnosis for confirmation of test results.[5] The results of this testing, including the benefits and limitations, should be discussed with a qualified healthcare provider. management decisions, including termination of the , should not be based on the results of these tests alone. The healthcare provider is responsible for the use of this information in the management of their patient. Sex chromosomal aneuploidies are not reportable for known multiple gestations. A negative result does not ensure an unaffected nor does it exclude the possibility of other chromosomal abnormalities or defects which are not a part of these tests. An uninformative result may be reported, the causes of which may include, but are not limited to, insufficient sequencing coverage, noise or artifacts in the region, amplification or sequencing bias, or insufficient fraction. These tests are not intended to identify pregnancies at risk for neural tube defects or ventral wall defects. Testing for whole chromosome abnormalities (including sex chromosomes) and for subchromosomal abnormalities could lead to the potential discovery of both and maternal genomic abnormalities that could have major, minor, or no, clinical significance. Evaluating the significance of a positive or a non-reportable result may involve both invasive testing and additional studies on the mother. Such investigations may lead to a diagnosis of maternal chromosomal or subchromosomal abnormalities, which on occasion may be associated with benign or malignant maternal neoplasms. These tests may not accurately identify triploidy, balanced rearrangements, or the precise location of subchromosomal duplications or deletions; these may be detected by diagnosis with CVS or amniocentesis. The ability to report results may be impacted by maternal BMI, maternal weight, maternal systemic lupus erythematosus (SLE) and/or by certain pharmaceutical agents such as low molecular weight heparin (for example: Lovenox(R), Xaparin(R), Clexane(R) and Fragmin(R)). Performed By: #### T SPN #### [facility] CLIA [id number] [address] [place] [address] Monosomy X risk Dosage of chromosome-specific cfDNA Ql (Plasma cell-free+WBC DNA) [Interp] Not detected Normal [facility] Comment on above: Order Comment: Jalyni men Type: BLOOD SPECIMEN [facility] Address: [address] [place] [address] Performed By: #### T SPN #### [facility] CLIA [id number] [address] [place] [address] NEGATIVE PREDICTIVE VALUE Note Normal [facility] Comment on above: Order Comment: Kit men Type: BLOOD SPECIMEN [facility] Address: [address] [place] [address] Result Comment: The Negative Predictive Value (NPV) for trisomy 21, 18, and 13 is greater than 99%. The NPV for SCA and ESS cannot be calculated as SCA and ESS are only reported when an abnormality is detected. Performed By: #### T SPN #### [facility] CLIA [id number] [address] [place] [address] PERFORMANCE CHARACTERISTICS Note Normal [facility] Comment on above: Order Comment: Kit taylor Type: BLOOD SPECIMEN [facility] Address: [address] [place] [address] Result Comment: ! Sex ! Accuracy: 99.4% ! ! ! ! Region (associated syndrome) ! Est. Sens# ! Est. Spec ! ! ! ! Trisomy 21 (Down Syndrome) ! 99.1% ! 99.9% ! ! ! ! Trisomy 18 (Sepulveda Syndrome) ! >99.9% ! 99.6% ! ! ! ! Trisomy 13 ([place] Syndrome) ! 91.7% ! 99.7% ! ! ! ! Sex Chromosome Aneuploidies## ! 96.2% ! 99.7% ! ! ! * As reported in ISCA database nstd37 [https://www.ncbi.nlm.nih.gov/dbvar/studies/nstd37/ ] # Estimated Sensitivity. Sensitivity estimated across the observed size distribution of each syndrome [per ISCA database nstd37] and across the range of fractions observed in routine clinical NIPT. Actual sensitivity can also be influenced by other factors such as the size of the event, total sequence counts, amplification bias, or sequence bias. ## Gonzalez gestation only. Performed By: #### T SPN #### [facility] CLIA [id number] [address] [place] [address] [place] POSITIVE PREDICTIVE VALUE N/A Normal [facility] Comment on above: Order Comment: Speci men Type: BLOOD SPECIMEN Ordering Facility: [facility] Address: [address] [place] [address] Performed By: #### T SPN #### [facility] CLIA [id number] [address] [place] [address] [place] Reference Lab Test Method Comment Normal [facility] Comment on above: Order Comment: Speci men Type: BLOOD SPECIMEN Ordering Facility: [facility] Address: [address] [place] [address] Result Comment: Circ ulating cell-free DNA was purified from the plasma component of maternal blood. The extracted DNA was then converted into a genomic DNA library for aneuploidy analysis of chromosomes 21, 18, and 13 via next generation sequencing.[1] Optional findings based on the test order include sex chromosome aneuploidy (SCA)[2], and enhanced sequencing series (ESS)[3], which will only be reported on as an additional finding when an abnormality is detected. SCA testing includes information on X and Y representation, while ESS testing includes deletions in selected regions (22q, 15q, 11q, 8q, 5p, 4p, 1p) and trisomy of chromosomes 16 and 22. Performed By: #### T SPN #### [facility] IA [id number] [address] [place] [address] [place] Service comment (Unsp spec) [Interp] Comment Normal [facility] Comment on above: Order Comment: Speci men Type: BLOOD SPECIMEN Ordering Facility: [facility] Address: [address] [place] [address] Result Comment: [facility]. is a subsidiary of [employer], using the brand [employer]. This test was developed and its performance characteristics determined by [facility] It has not been cleared or approved by the Food and Drug Administration. This laboratory is certified under the Clinical Laboratory Improvement Amendments (CLIA) as qualified to perform high complexity clinical laboratory testing and accredited by the [employer] (CAP). If there is future clinical need for adding MaterniT GENOME testing, this specimen will be available until term. [facility] samples will not be retained beyond 60 days. [facility] patients will have to send a new sample for re-sequencing ([facility] Test Code: [id number]). Performed By: #### T SPN #### [facility] CLIA [id number] [address] [place] [address] [place] Sex Dosage of chromosome-specific cfDNA Nom (cfDNA) Comment Normal [facility] Comment on above: Order Comment: Speci men Type: BLOOD SPECIMEN Ordering Facility: [facility] Address: [address] [place] [address] Result Comment: Cons istent with Male Performed By: #### T SPN #### [facility] CLIA [id number] [address] [place] [address] [place] Test performance information Reggie (Unsp spec) Comment Normal [facility] Comment on above: Order Comment: Speci men Type: BLOOD SPECIMEN Ordering Facility: [facility] Address: [address] [place] [address] Result Comment: The performance characteristics of the MaterniT(R) 21 PLUS laboratory-developed test (LDT) have been determined in a clinical validation study with women at increased risk for chromosomal aneuploidy.[1-4] Performed By: #### T SPN #### [facility] CLIA [id number] [address] [place] [address] [place] Trisomy 13 risk Dosage of chromosome-specific cfDNA Ql (cfDNA) [Interp] Negative Normal [facility] Comment on above: Order Comment: Speci men Type: BLOOD SPECIMEN Ordering Facility: [facility] Address: [address] [place] [address] Performed By: #### T SPN #### [facility] CLIA [id number] [address] [place] [address] [place] Trisomy 18 risk Dosage of chromosome-specific cfDNA Ql (Plasma cell-free+WBC DNA) [Interp] Negative Normal [facility] Comment on above: Order Comment: Speci men Type: BLOOD SPECIMEN Ordering Facility: [facility] Address: [address] [place] [address] Performed By: #### T SPN #### [facility] CLIA [id number] [address] [place] [address] [place] RUBELLA IGG ANTIBODYon 11-06 RUBELLA IGG AB, QUAL Positive Normal Positive [facility] Comment on above: Order Comment: Speci men Type: BLOOD SPECIMEN Ordering Facility: [facility] Address: [address] [place] [address] Result Comment: The result suggests recent or past exposure to Rubella virus or history of Rubella vaccination. Positive result may also be seen due to presence of passively-transferred antibodies. Please correlate with patient's history. Performed By: #### T SPN #### [facility] CLIA [id number] [address] [place] [address] [place] Reagin and Treponema pallidu m IgG and IgM [Interp]on 11-06-2024 T. pallidum IgG+IgM IA Ql (S) Non-Reactive Normal Nonreactive [facility] Comment on above: Order Comment: Speci men Type: BLOOD SPECIMEN Ordering Facility: [facility] Address: [address] [place] [address] Performed By: #### T SPN #### [facility] CLIA [id number] [address] [place] [address] [place] Reagin+T pallidum IgG+IgM Se rPl-Impon 11-06-2024 Reagin and Treponema pallidum IgG and IgM [Interp] Cannot exclude recent Treponemal infection if specimen collected within 7-10 days after appearance of suspect lesions or 2-3 weeks after an exposure. Clinical correlation is required. Normal [facility] Comment on above: Order Comment: Speci men Type: BLOOD SPECIMEN Ordering Facility: [facility] Address: [address] [place] [address] Performed By: #### T SPN #### [facility] CLIA [id number] [address] [place] [address] [place] TYPE + SCREEN PRENATALon ABO O Normal [facility] Comment on above: Order Comment: Speci men Type: BLOOD SPECIMEN Ordering Facility: [facility] Address: [address] [place] [address] Performed By: #### T SPN #### [facility] CLIA [id number] [address] [place] [address] [place] Rh Nom (Bld) Negative Normal [facility] Comment on above: Order Comment: Speci men Type: BLOOD SPECIMEN Ordering Facility: [facility] Address: [address] [place] [address] Performed By: #### T SPN #### [facility] CLIA [id number] [address] [place] [address] [place] TYPE AND SCREEN EXPIRATION 11/09/2024 23:[address] [facility] Comment on above: Order Comment: Speci men Type: BLOOD SPECIMEN Ordering Facility: [facility] Address: [address] [place] [address] Performed By: #### T SPN #### [facility] CLIA [id number] [address] [place] [address] [place] Examination level ultrasound on 10-11-2024 Indication dating Impression - - A normally located single intrauterine gestational sac with a yolk sac and an embryo is present. - Gamerco rump length measurement is consistent with the established gestational age of 8w 3d that was established by a prior Point of Care ultrasound done on 09/26/24. - Embryonic cardiac motion is within normal limits. FHR 176. There are vascular cysts noted along the umbilical cord measuring 5 mm x 5 mm x 4 mm. Recommendations Follow up for 1st Trimester Anatomy with Nuchal Translucency. Follow-up umbilical cord at that time. Method Color Doppler examination, 3D ultrasound examination. Transabdominal and transvaginal ultrasound examination. View: Adequate visualization Gonzalez . Number of embryos: 1 Dating LMP on: 08/01/2024 GA by LMP 10 w + 0 d GREGORY by LMP: 05/08/2025 GA by prior assessment 8 w + 3 d GREGORY by prior assessment: 05/19/2025 Ultrasound examination on: 10/10/2024 GA by U/S based upon: CRL GA by U/S 8 w + 5 d GREGORY by U/S: 05/17/2025 Assigned: based on stated GREGORY, selected on 10/10/2024 Assigned GA 8 w + 3 d Assigned GREGORY: 05/19/2025 Biometry Standard FHR 176 bpm CRL 21.3 mm 8w 5d 98% Hadlock Extended YS 3.5 mm 2% Grisolia Assessment Gestational sac: visualized Location: intrauterine Yolk sac: visualized YS 3.5 mm 2% Grisolia Embryo: visualized CRL 21.3 mm 8w 5d 98% Hadlock Cardiac activity: present FHR 176 bpm Other: possible cysts noted along the area of the umbilical cord measuring 5 mm x 5 mm x 4 mm Maternal Structures Uterus / Cervix Uterus: Visualized Uterus position: anteverted Description of uterine malformations: none Myometrium: normal Uterus length 103 mm Uterus width 71 mm Uterus height 61 mm Uterus Vol 235.2 cm Endometrium: normal Cervix: Visualized Cervix details: normal Ovaries / Tubes / Adnexa Rt ovary: Visualized Rt ovary D1 31 mm Rt ovary D2 23 mm Rt ovary D3 14 mm Rt ovary Vol 5.3 cm Rt ovarian corpus luteum: hemorrhagic Rt ovarian corpus luteum D1 17.4 mm Rt ovarian corpus luteum D2 17.8 mm Rt ovarian corpus luteum D3 15.2 mm Lt ovary: Visualized Lt ovary morphology: premenopausal normal follicular Lt ovary D1 20 mm Lt ovary D2 18 mm Lt ovary D3 16 mm Lt ovary Vol 3.1 cm Cul de Sac / Bladder / Kidneys / Other Cul de Sac: Visualized Free fluid: no free fluid visualized Performed By: Mattie Castillo RDMS Read By: Elizabeth Ren M.D. MATERNAL MEDICINE [facility] Pat 10-10-2024 [place] Telephone (OBGYWM) SENA HARTMAN ([id number]) 00 F IPA Date Time Provider Department 10/10/24 ASHLEY BOYD During your visit today, we recorded the following information about you: Lynn Castillo LPN 10/10/2024 2:43 PM Signed Ob patient is 8w3d and called stating that she fell on her knees and elbows in the mud. No direct hit on her abdomen. Patient denies cramping. No spotting or vaginal bleeding. Reassurance given to patient and told to monitor and to call if bleeding or cramping Ashley Boyd MD 10/10/2024 2:54 PM Signed Noted AND agree. Ashley Boyd MD Allergies As of Date: 10/10/2024 Noted Allergy Reaction SULFA (SULFONAMIDE ANTIBIOTICS) 06/15/2015 4 - Hives Date Reviewed: 09/26/2024 Reviewed by: Aide Rene LPN - Fully Assessed Reason for Visit: Care [86] Prescriptions as of 10/10/2024 - aspirin, enteric coated (ECOTRIN LOW STRENGTH) 81 mg EC tablet Take 1 tablet by mouth once daily. - no115/iron/folic acid ( 19 ORAL) Take 1 tablet by mouth once daily. - Cholecalciferol, Vitamin D3, (VITAMIN D) 25 mcg (1,000 unit) cap Take 1,000 Units by mouth once daily. - Magnesium 250 mg tab Take 250 mg by mouth once daily. Problem List As Of Date 10/10/2024 Noted Resolved Obesity, unspecified [E66.9] 09/26/2024 Supervision of high risk , antepartum *09/26/2024 Encounter Status:Closed by BRIGITTE LATHAM on 10/10/[address] [facility] Examination level ultrasound on 10-10-2024 Radiology Study observation (narrative) [facility] Pat 10-09-2024 CNPN Telephone (OBGYWM) SENA HARTMAN ([id number]) 00 F IPA Date Time Provider Department 10/09/24 AMELIA MENDOZA During your visit today, we recorded the following information about you: Poli Anders MA 10/09/2024 10:06 AM Signed Opened to send patient a [employer] message, patient is not enrolled in [employer]. Closing encounter. Poli Anders MA Allergies As of Date: 10/09/2024 Noted Allergy Reaction SULFA (SULFONAMIDE ANTIBIOTICS) 06/15/2015 4 - Hives Date Reviewed: 09/26/2024 Reviewed by: Aide Rene LPN - Fully Assessed Prescriptions as of 10/09/2024 - aspirin, enteric coated (ECOTRIN LOW STRENGTH) 81 mg EC tablet Take 1 tablet by mouth once daily. - no115/iron/folic acid ( 19 ORAL) Take 1 tablet by mouth once daily. - Cholecalciferol, Vitamin D3, (VITAMIN D) 25 mcg (1,000 unit) cap Take 1,000 Units by mouth once daily. - Magnesium 250 mg tab Take 250 mg by mouth once daily. Problem List As Of Date 10/09/2024 Noted Resolved Obesity, unspecified [E66.9] 09/26/2024 Supervision of high risk , antepartum *09/26/2024 Encounter Status:Closed by POLI ANDERS on 10/09/24 [facility] 09-27-2024 [facility] Telephone (OBGYWM) SENA HARTMAN ([id number]) 00 F IPA Date Time Provider Department 09/27/24 DAVIDA FISHMAN During your visit today, we recorded the following information about you: Brigitte Latham RN 09/27/2024 1:57 PM Signed Left message for patient to call office. Needed to move her US appointment to 1PM on 10/10 with Mattie (was originally at 11:00AM with Deysi) because patient is less than 12 weeks and was put on wrong schedule. ANA Jenkins Annalee, LPN 09/27/2024 3:47 PM Signed Patient notified Allergies As of Date: 09/27/2024 Noted Allergy Reaction SULFA (SULFONAMIDE ANTIBIOTICS) 06/15/2015 4 - Hives Date Reviewed: 09/26/2024 Reviewed by: Aide Rene LPN - Fully Assessed Reason for Visit: Appointment [186] Prescriptions as of 09/27/2024 - aspirin, enteric coated (ECOTRIN LOW STRENGTH) 81 mg EC tablet Take 1 tablet by mouth once daily. - no115/iron/folic acid ( 19 ORAL) Take 1 tablet by mouth once daily. - Cholecalciferol, Vitamin D3, (VITAMIN D) 25 mcg (1,000 unit) cap Take 1,000 Units by mouth once daily. - Magnesium 250 mg tab Take 250 mg by mouth once daily. Problem List As Of Date 09/27/2024 Noted Resolved Obesity, unspecified [E66.9] 09/26/2024 Supervision of high risk , antepartum *09/26/2024 Encounter Status:Closed by LYNN CASTILLO on 09/27/[address] [facility] Bacteria Ur Culton 5 Bacteria identified Cx Nom (U) ORGANISM ID: 1 10,000 -<50,000 CFU/ml Normal urogenital carloz Streptococcus agalactiae (Group B streptococcus) was identified in this specimen, which is clinically relevant if the individual is . Normal [facility] Comment on above: Performed By: #### T SPN #### CC [facility] BLOOD BANK CLIA [id number] [address] [place] [address] [place] C. trachomatis+N. gonorrhoea e DNA ADELA+probe Ql (Unsp spec)on 09-26-2024 C. trachomatis rRNA ADELA+probe Ql (Unsp spec) Not detected Normal Not detected [facility] Comment on above: Order Comment: Speci men Type: SWABOrdering Facility: [facility] Address: [address] [place] [address] Performed By: #### T RVAMP, 75432-7 ####[facility] [id number] [address] [place] N. gonorrhoeae rRNA ADELA+probe Ql (Unsp spec) Not detected Normal Not detected [facility] Comment on above: Order Comment: Speci men Type: SWABOrdering Facility: [facility] Address: [address] [place] [address] Performed By: #### T RVAMP, 60135-5 ####[facility] [id number] [address] [place] [facility] SALESPERSON ULTRASOUNDon 09-27-19 25 Indication Viability. Confirmation of intrauterine . Confirmation of cardiac activity. Estimation of gestational age Impression cardiac activity is visualized, CRL indicates discrepancy from clinical dates, GREGORY 05/19/25 based on today's ultrasound Recommendations Follow up for repeat ultrasound in at least 14 days to confirm viability, Follow up for 1st Trimester Anatomy with Nuchal Translucency as clinically indicated if desired. Method Transvaginal ultrasound examination. View: Adequate visualization Gonzalez . Number of embryos: 1 Dating LMP on: 08/01/2024 GA by LMP 8 w + 0 d GREGORY by LMP: 05/08/2025 Ultrasound examination on: 09/26/2024 GA by U/S based upon: CRL GA by U/S 6 w + 3 d GREGORY by U/S: 05/19/2025 Assigned: based on ultrasound (CRL), selected on 09/26/2024 Assigned GA 6 w + 3 d Assigned GREGORY: 05/19/2025 Biometry Standard FHR 117 bpm CRL 5.8 mm 6w 3d 34% Hadlock Assessment Gestational sac: visualized Location: intrauterine Yolk sac: visualized Embryo: visualized CRL 5.8 mm 6w 3d 34% Hadlock Cardiac activity: present FHR 117 bpm Maternal Structures BMI 43 General Evaluation Cardiac activity present. FHR 117 bpm Performed By: Davida Fishman CNP Read By: Davida Fishman CNP MATERNAL MEDICINE [facility] Radiology Study observation (narrative) [facility] TRICHOMONAS VAGINALIS NAATon 09-26-2024 T. vaginalis DNA ADELA+probe Ql (Unsp spec) Not detected Normal Not detected [facility] Comment on above: Order Comment: Speci men Type: SWABOrdering Facility: [facility] Address: [address] [place] [address] Performed By: #### T RVAMP, 69872-9 ####[facility]CLIA [id number] [address] [facility] Pat 09-20-2024 [place] Telephone (OBGYWM) SENA HARTMAN ([id number]) 00 F IPA Date Time Provider Department 09/20/24 DAVIDA FISHMAN During your visit today, we recorded the following information about you: Aide Rene LPN 09/20/2024 4:03 PM Signed Phone call placed to complete New OB intake question's appointment scheduled 09/25/2024, brief message left. [employer] not activated, unable to send message. Aide Rene LPN Allergies As of Date: 09/20/2024 Noted Allergy Reaction SULFA (SULFONAMIDE ANTIBIOTICS) 06/15/2015 4 - Hives Date Reviewed: 05/11/2024 Reviewed by: Claribel Keita MA - Fully Assessed Reason for Visit: Appointment [186] Patient Update [1234] Prescriptions as of 09/20/2024 - tranexamic acid (LYSTEDA) 650 mg tablet Take 2 tablets 3 times a day as needed for heavy bleeding up to 5 days. - Cholecalciferol, Vitamin D3, (VITAMIN D) 25 mcg (1,000 unit) cap Take 1,000 Units by mouth once daily. - Magnesium 250 mg tab Take 250 mg by mouth once daily. Problem List As Of Date: 09/20/2024 (None) Encounter Status:Closed by AIDE RENE on 09/20/24 [facility] CNOVon 05-11-2024 CNOV Office Visit (OBGYWM ) SENA HARTMAN ([id number]) 1 F Date Time Provider Department 05/11/24 7:30 AM DAVIDA FISHMAN OBGYWM During your visit today, we recorded the following information about you: Blood pressure Weight Height Last Period 120/70 114.8 kg 1.635 m 04/19/24 Davida Fishman APRN.MEDIA JOB TITLES 05/11/2024 7:58 AM Addendum Flask Carrier offered: Patient declines. Sena is a 23 year old who presents for an annual gynecologic exam without complaints. Wanting to try for this year. Still get period: Yes LMP: 04/19/2024 Menses: cycles every 28-42 days and 7 days of flow- heavy flow, will bleed thru a tampon in 1.5 hrs, is using adult diaper during period. Sexually active: Yes Contraception: None HPV vaccine: N/A HPV:N/A Last pap smear: never History of abnormal pap: No Bothersome pelvic pain: No Last mammogram: never Patient concerns for STD exposure: No. OB History No obstetric history on file. Zigzagger History LMP: 04/19/2024, Having periods Age at Menarche: Age at First : Age at Menopause: Zigzagger History Comments: Sexual Activity: Yes; Male Contraception: None PAST MEDICAL HISTORY Diagnosis Date NEGATIVE MEDICAL HISTORY PAST SURGICAL HISTORY Procedure Laterality Date REMOVAL GALLBLADDER 2020 FAMILY HISTORY Problem Relation Age of Onset Hypertension Mother other (high chloesterol) Mother Hypertension Father other (high chloesterol) Father No Known Problems Sister No Known Problems Maternal Grandmother No Known Problems Maternal Grandfather SOCIAL HISTORY Social History Tobacco Use Smoking status: Never Smokeless tobacco: Never Vaping Use Vaping status: Never Used Substance Use Topics Alcohol use: Not Currently Drug use: Never REVIEW OF SYSTEMS Abdomen: No abdominal pain, nausea, vomiting, diarrhea, or constipation. No bloating, early satiety, indigestion, or increased flatulence. Bladder: No dysuria, gross hematuria, urinary frequency, urinary urgency, or incontinence. Breast: No breast lumps, nipple d/c, overlying skin changes, redness or skin retraction. Allergies and current medication updated:Yes SENSITIVE EXAM: The sensitive examination was discussed with the Patient or Patient's Authorized Manager Customer Service. As applicable, any other physician, advance practice provider, medical student, or other health professional student that will be observing or involved in the sensitive examination for educational or training purposes was discussed with the Patient or Authorized Manager Customer Service. The Patient or Authorized Manager Customer Service has agreed to proceed with the sensitive examination. (Sensitive examination includes inspection and/or palpation of the breasts, pelvis, prostate and anorectal regions). EXAM: BP 120/70 Ht 5' 4.378 (1.64m) Wt 253 lb (114.8kg) LMP 04/19/2024 BMI 42.93 kg/(m2). GENERAL: pleasant, female in no apparent distress HEENT: Normocephalic, atraumatic, mucus membranes moist, and no lesions NECK: Supple, full range of motion, no adenopathy, and thyroid normal DERMATOLOGY: Normal, without lesions, non-icteric, and non-hirsute BREAST: soft, non-tender, symmetric, no dominant mass, normal nipple-areolar complex, no lymphadenopathy, and no nipple discharge CHEST: Normal inspiratory effort ABDOMEN: soft, non-tender, and no masses PELVIC: external genitalia normal, normal Bartholin's glands, urethra, Putnam's glands, no vulvar lesions, no cervical lesions, good vaginal support, physiologic discharge present, normal appearing perineal body and perianal region BIMANUAL: uterus normal size, shape and consistency, no adnexal masses, and non-tender RECTOVAGINAL: deferred. NEURO: alert and oriented x3,exam grossly non-focal EXTREMITIES: normal ASSESSMENT/PLAN: 1) Health maintenance: Pap done with reflex HPV. Mammogram starting age 40. Nutrition, exercise and routine health maintenance exams reviewed. Calcium/Vitamin D supplementation information provided. Colon cancer screening: start at age 45 2) Contraception: none. Contraceptive options reviewed and information provided. 3) STD screening: Declined STD check. 4) Follow up one year or sooner as needed 5) Lysteda ordered for heavy menses Davida Fishman APRN.CNP Allergies As of Date: 05/11/2024 Noted Allergy Reaction SULFA (SULFONAMIDE ANTIBIOTICS) 06/15/2015 4 - Hives Date Reviewed: 05/11/2024 Reviewed by: Claribel Keita MA - Fully Assessed Reason for Visit: Well Woman [1463] Primary Visit Diagnosis:Encounter for gynecological examination (general) (routine) without abnormal findings [Z01.419] Other Visit Diagnoses:Screening for cervical cancer [Z12.4] Menorrhagia with regular cycle [N92.0] Order(s):PAP TEST [[id number]] Order #: [id number] tranexamic acid (LYSTEDA) 650 mg tabletTake 2 tablets 3 times a day as needed for h (more content not included)... Normal [facility] PAP TESTon 05-11-2024 ADEQUACY Satisfactory for interpretation. Normal [facility] Comment on above: Order Comment: Speci men Type: FLUID SPECIMENOrdering Facility: [facility] Address: [address] [place] [address] Performed By: #### L [id number] ####[facility]ORY[facility] [id number] [address] LABCLIA [id number] [address] [facility] CASE REPORT Normal [facility] Comment on above: Order Comment: Speci men Type: FLUID SPECIMENOrdering Facility: [facility] Address: [address] [place] [address] Result Comment: Gyne cologic Cytology Report Case: [id number] Authorizing Provider: Davida Fishman APRN.MEDIA JOB TITLES Collected: 05/11/2024 08:30 AM Ordering Location: OB/Gynecology Received: 05/11/2024 11:22 AM First Screen: Clapacs, Michelle Specimen: Pap Test, ThinPrep, Cervix Performed By: #### L [id number] ####[facility] LABORATORYCLIA [id number] [place] [id number] [facility] LABCLIA [id number] [place] [address] [place] CLINICAL HISTORY, CYTOLOGY, DIE TESTER Routine Exam Normal [facility] Comment on above: Order Comment: Speci men Type: FLUID SPECIMENOrdering Facility: [facility] Address: [address] [place] [address] Performed By: #### L [id number] ####[facility] LABORATORYCLIA [id number] [place] [id number] [facility] LABCLIA [id number] [address] [place] FINAL PERFORMING LAB Normal [facility] Comment on above: Order Comment: Speci men Type: FLUID SPECIMENOrdering Facility: [facility] Address: [address] [place] [address] Result Comment: Tech nical component, caddie screening performed at [facility], [address] [place] [address] CLIA# [id number] Diagnostic interpretation performed at [facility], [address] [place], [place] [id number] CLIA# [id number] Hand Molder And Caster: Scar Bernardo M.D. Performed By: #### L [id number] ####[facility] LABORATORYCLIA [id number] [place] [id number] [facility] LABCLIA [id number] [address] [place] INTERPRETATION, CYTOLOGY, DIE TESTER Normal [facility] Comment on above: Order Comment: Speci men Type: FLUID SPECIMENOrdering Facility: [facility] Address: [address] [place] [address] Result Comment: Nega tive for intraepithelial lesion or malignancy. Performed By: #### L [id number] ####[facility] LABORATORYCLIA [id number] [address] LABCLIA [id number] [address] OF [place] LMP 04/19/[address] [facility] Comment on above: Order Comment: Speci men Type: FLUID SPECIMENOrdering Facility: [facility] Address: [address] [place] [address] Performed By: #### L [id number] ####[facility] LABORATORYCLIA [id number] [address] LABCLIA [id number] [address] [place] PAP DISCLAIMER COMMENT The Pap Smear is a screening test for cervical cancer. False negative results occur with all screening tests, emphasizing the need for rescreening at recommended intervals, and clinical correlation. Normal [facility] Comment on above: Order Comment: Speci men Type: FLUID SPECIMENOrdering Facility: [facility] Address: [address] [place] [address] Performed By: #### L [id number] ####[facility] LABORATORYCLIA [id number] [place] [id number] [facility] LABCLIA [id number] [place] [address] [place] PAP DRY MAN COMMENT This specimen has been analyzed by the ThinPrep Imaging System, an automated imaging and review system, which assists the laboratory in evaluating cells on ThinPrep Pap tests. Following automated imaging, selected gaam from every slide are reviewed by a caddie. Normal [facility] Comment on above: Order Comment: Speci men Type: FLUID SPECIMENOrdering Facility: [facility] Address: [address] [place] [address] Performed By: #### L [id number] ####[facility] LABORATORYCLIA [id number] [place] [id number] [facility] LABCLIA [id number] [place] [address] [place] B TYPE NATRIURETIC PEPTIDE ( BNP)on 11-02-2022 Natriuretic peptide B (Bld) [Mass/Vol] 13 pg/mL Normal <100 [facility] Comment on above: Result Comment: BNP levels increase with age in the general population with the highest values seen in individuals greater than 75 years of age. Reference: J. Am. Naida. Cardiol. 2002; 40:976-982. Performed By: #### 3 7386, 57215 #### [facility] [place] [address] Commercial Drone Pilot: Tolu Joseph MD [facility] 11-02-2022 Albumin [Mass/Vol] 4.6 g/dL Normal 3.6-5.1 [facility] Comment on above: Performed By: #### 3 7386, 86704 #### [facility] [place] [address] Commercial Drone Pilot: Tolu Joseph MD Albumin/Globulin [Mass ratio] 2.0 {ratio} Normal 1.0-2.5 [facility] Comment on above: Performed By: #### 3 7386, 87366 #### [facility] [place] [address] Commercial Drone Pilot: Tolu Joseph MD ALP [Catalytic activity/Vol] 71 U/L Normal 31-125 [facility] Comment on above: Performed By: #### 3 7386, 80778 #### [facility] [place] [address] Commercial Drone Pilot: Tolu Joseph MD ALT [Catalytic activity/Vol] 13 U/L Normal 6-29 [facility] Comment on above: Performed By: #### 3 7386, 37409 #### [facility] [place] [address] Commercial Drone Pilot: Tolu Joseph MD AST [Catalytic activity/Vol] 15 U/L Normal 10-30 [facility] Comment on above: Performed By: #### 3 7386, 19733 #### [facility] of [address], [address] [place] [address] Commercial Drone Pilot: Tolu Joseph MD Bilirubin [Mass/Vol] 0.3 mg/dL Normal 0.2-1.2 [facility] Comment on above: Performed By: #### 3 7386, 27117 #### [facility] of [place] [address] Commercial Drone Pilot: Tolu Joseph MD BUN/CREATININE RATIO NOT APPLICABLE Normal 6-22 [facility] Comment on above: Performed By: #### 3 7386, 97529 #### [facility] of [place] [address] Commercial Drone Pilot: Tolu Joseph MD Calcium [Mass/Vol] 9.2 mg/dL Normal 8.6-10.2 [facility] Comment on above: Performed By: #### 3 7386, 40448 #### [facility] of [place] [address] Commercial Drone Pilot: Tolu Joseph MD Chloride [Moles/Vol] 106 mmol/L Normal 98-110 [facility] Comment on above: Performed By: #### 3 7386, 10380 #### [facility] of [place] [address] Commercial Drone Pilot: Tolu Joseph MD CO2 [Moles/Vol] 26 mmol/L Normal 20-32 [facility] Comment on above: Performed By: #### 3 7386, 54107 #### [facility] of [place] [address] Commercial Drone Pilot: Tolu Joseph MD Creatinine [Mass/Vol] 0.67 mg/dL Normal 0.50-0.96 [facility] Comment on above: Performed By: #### 3 7386, 51173 #### [facility] of [place] [address] Commercial Drone Pilot: Tolu Joseph MD GFR/1.73 sq M.predicted among non-blacks MDRD (S/P/Bld) [Vol rate/Area] 127 mL/min/{1.73_m2} Normal > OR = 60 [facility] Comment on above: Result Comment: The eGFR is based on the CKD-EPI 2020 equation. To calculate the new eGFR from a previous Creatinine or Cystatin C result, go to https://www.kidney.org/professionals/ kdoqi/gfr%5Fcalculator Performed By: #### 3 7386, 24053 #### [facility] [place] [address] Commercial Drone Pilot: Tolu Joseph MD Globulin (S) [Mass/Vol] 2.3 g/dL Normal 1.9-3.7 [facility] Comment on above: Performed By: #### 3 7386, 86752 #### [facility] [place] [address] Commercial Drone Pilot: Tolu Joseph MD Glucose [Mass/Vol] 90 mg/dL Normal 65-99 [facility] Comment on above: Result Comment: Fasting reference interval Performed By: #### 3 7386, 53153 #### [facility] [place] [address] Commercial Drone Pilot: Tolu Joseph MD Potassium [Moles/Vol] 4.1 mmol/L Normal 3.5-5.3 [facility] Comment on above: Performed By: #### 3 7386, 60923 #### [facility] [place] [address] Commercial Drone Pilot: Tolu Joseph MD Protein [Mass/Vol] 6.9 g/dL Normal 6.1-8.1 [facility] Comment on above: Performed By: #### 3 7386, 66658 #### [facility] [place] [address] Commercial Drone Pilot: Tolu Joseph MD Sodium [Moles/Vol] 139 mmol/L Normal 135-146 [facility] Comment on above: Performed By: #### 3 7386, 94787 #### [facility] [address] [place] [address] Commercial Drone Pilot: Tolu Joseph MD Urea nitrogen [Mass/Vol] 11 mg/dL Normal 7-25 [facility] Comment on above: Performed By: #### 3 0586, 73716 #### [facility] [address] [place], [place] [address]e Rd, [address] [place] [address] Commercial Drone Pilot: Tolu Joseph MD Laboratory - Chemistry and C hemistry - challengeon 10-30-2022 Albumin [Mass/Vol] 4.6 g/dL Normal 3.6 - 5.1 g/dL [facility], [facility].; [facility], [facility]. Albumin/Globulin [Mass ratio] 2.0 {ratio} Normal 1.0 - 2.5 [facility], [facility].; [place] [employer] ALP [Catalytic activity/Vol] 71 U/L Normal 31 - 125 U/L [facility], [facility].; [place] [employer] [facility], [facility]. ALT [Catalytic activity/Vol] 13 U/L Normal 6 - 29 U/L [facility], [facility].; [employer]. AST [Catalytic activity/Vol] 15 U/L Normal 10 - 30 U/L [facility], [facility].; [employer]. Beta HCG ( test) Ql (U) Negative Normal [facility], [facility].; [employer] Bilirubin [Mass/Vol] 0.3 mg/dL Normal 0.2 - 1.2 mg/dL [facility], [facility].; [place] [employer] Calcium [Mass/Vol] 9.2 mg/dL Normal 8.6 - 10. 2 mg/dL [place] [employer] [facility], [facility].; [employer], [facility]. Chloride [Moles/Vol] 106 mmol/L Normal 98 - 110 mmol/L [facility], [facility].; [place] [employer] CO2 [Moles/Vol] 26 mmol/L Normal 20 - 32 mmol/L [facility], [facility].; [employer] Creatinine [Mass/Vol] 0.67 mg/dL Normal 0.50 - 0.96 mg/dL [facility], [facility].; [employer], [facility]. GFR/1.73 sq M.predicted among non-blacks MDRD (S/P/Bld) [Vol rate/Area] 127 mL/min/{1.73_m2} Normal [facility].; [facility] Glucose [Mass/Vol] 90 mg/dL Normal 65 - 99 mg/dL [facility].; [facility], [facility] Natriuretic peptide B (Bld) [Mass/Vol] 13 pg/mL Normal [facility]; [facility] Potassium [Moles/Vol] 4.1 mmol/L Normal 3.5 - 5.3 mmol/L [facility]; [facility] Protein [Mass/Vol] 6.9 g/dL Normal 6.1 - 8.1 g/dL [facility].; [facility], [facility] Sodium [Moles/Vol] 139 mmol/L Normal 135 - 146 mmol/L [facility]; [facility] Urea nitrogen [Mass/Vol] 11 mg/dL Normal 7 - 25 mg/dL [facility]; [facility] No Panel Informationon 10-30 BUN/CREATININE RATIO NOT APPLICABLE Normal 6 - 22 [facility]; [facility] GLOBULIN 2.3 Normal 1.9 - 3.7 [facility]; [facility]. PT D/C Summary (1)on 022 PT D/C Summary (1) [facility] Physical Therapy [address] [place] [address] / REHABILITATION SERVICES DISCHARGE SUMMARY MR#: [id number] Acct: [id number] Name: SENA HARTMAN Rep #: [id number] : 2000 21 From: Sanchez Bolivar DPT Referring Dr.: NIMO Abreu Status: REG RCR Insurance: [facility] [place] [id number] SELF PAY INSURANCE It has been my pleasure to treat SENA HARTMAN referred by NIMO Buttefrield, with the diagnosis of R shoulder pain for a total of 10 visit(s). Discharge Date: 08/19/21 Please see the following information for a summary of their discharge status. Subjective: Pt. reports I am like 98% better overall. She reports no pain currently and is back to all of her work activities without limitations. She is HEP. Pt. reports being pleased. R shoulder Pain Intensity (Out of 10): 0 % Improvement: 98 Objective/Function: R shoulder: PROM Full motion without increase in symptoms. AROM: flexion 170deg, abd 170deg, functional ER C5, functional IR T11. Pt. reports no pain, just a little tightness with OH end ranges. MMT: symmetrical throughout bilateral shoulder without increase in symptoms. No issues sleeping, no issues with work activities. No pain reported. - HK, -impingement testing, - speeds, - lift off, - biceps load. Goal 1:: LTG: Pt. to be I with HEP for RTC and scapular stability. Goal Progress: Goal Met Goal 2:: STG: Pt. to sleep throughout the night with 0-2/10 pain allowing for increased quality of life. Goal Progress: Goal Met Goal 3:: STG: Pt. to have 0-2/10 pain in R shoulder at rest. Goal Progress: Goal Met Goal 4:: LTG: Pt. to complete all work duties including lifting over head, reaching across body and all ADLs without increase in symptoms. Goal Progress: Goal Met Goal 5:: LTG: Pt. to have increased R shoulder strength by 10# in ER and abduction movements allowing increased stability and tolerance with all work related activities. Goal Progress: Goal Met Plan: Pt. to be DC to HEP at this point in time. Discharge Comments: Sena is doing much better. Since she had her injection she has progressed very well. She today had no issues with her shoulder. She is I with her HEP for RTC strengthening/stabili ty. She will be DC from PT at this point in time. If there are questions or concerns regarding this patient's physical therapy, please feel free to call me at [phone]. Thank you for the referral of this patient. Sincerely, Sanchez Juarezos, DPT Balance/Gait/Function al tests - Balance/Special Test Scores Quick DASH Score: 0 08/21/21 0841 CC: NIMO Abreu CLS Signed Normal [facility] MR SHOULDER W/O RTon 022 MR SHOULDER W/O RT [address] [address] Patient: SENA HARTMAN Phone#: : [phone] Age: 21 Gender: F Pt. Type: Out Account: [id number] Location: Ordering: YVETTE ABREU Exam Date: 07/14/2021/15:03 Family Phys: Charge Code: [id number] Physician: Ogle Order #: [id number] DLP Dose#: PROCEDURE: MRI SHOULDER RT WITHOUT CONTRAST COMPARISON: None. INDICATIONS: Right shoulder pain TECHNIQUE: A variety of imaging planes and parameters were utilized for visualization of suspected pathology. Images were performed without contrast. FINDINGS: ROTATOR CUFF REGION CUFF TENDONS: There is abnormal signal in the supraspinatus tendon consistent with interstitial tear. CUFF MUSCLES: Normal appearing muscles. DELTOID: Normal. No significant atrophy or tear. LONG BICEPS TENDON: Normal. No abnormal signal, attrition, or tear. LABRUM/BICEPS ANCHOR SUPERIOR: There is a superior labral tear. ANTERIOR/INFERIOR: Normal. No visible tear or attrition. POSTERIOR: Normal. No posterior labrum abnormality. CAPSULE ANTERIOR/INFERIOR: Normal. No visible capsular laxity or thickening. Type I origin of the middle glenohumeral ligament. POSTERIOR: Normal. No visible capsular laxity or thickening. AC JOINT REGION AC JOINT: Normal acromioclavicular joint. AC LIGAMENTS: Normal acromioclavicular ligament. CC LIGAMENTS: Normal coracoclavicular ligaments. ACROMION: Normal horizontal (Type I) configuration. SUBACROMIAL BURSA: Normal. No significant effusion. HYALINE CARTILAGE: Normal. No visible cartilage narrowing or focal defect. OTHER BONES: Normal proximal humerus, glenoid, and coracoid. OTHER OBSERVATIONS: Negative. No other significant findings or glenohumeral effusion. Continued Report - Page 2 of 2 Patient: SENA HARTMAN Phone#: : [phone] Age: 21 Gender: F Pt. Type: Out Account: [id number] Location: Ordering: YVETTE ABREU Exam Date: 07/14/2021/15:03 Family Phys: Charge Code: [id number] Physician: Ogle Order #: [id number] DLP Dose#: CONCLUSION: 1. Exam is limited by motion artifact. There does appear to be tendinosis and interstitial tear of the supraspinatus tendon. 2. Superior labral tear is present. Dictated by: Edwin Colbert MD on 07/14/2021 at 16:54 Approved by: Edwin Colbert MD on 07/15/2021 at 14:45 Normal [facility] Inital Evaluation (1) - PTon 06-18-2021 Inital Evaluation (1) - PT [facility] Physical [facility] [address] [place] [address] / REHABILITATION SERVICES INITIAL EVALUATION MR#: [id number] Acct: [id number] Name: SENA HARTMAN Rep #: [id number] : 2000 21 From: Sanchez Bolivar DPT Referring Dr.: NIMO Abreu Status: REG RCR Insurance: [place] [id number] SELF PAY INSURANCE Patient's Visit Information SENA HARTMAN is a 21 year old F referred to Physical Therapy by NIMO Butterfield with a diagnosis of R shoulder pain. Date of Evaluation: 06/10/21 Physical Therapist: Sanchez Bolivar DPT - Visit Plan Frequency: 2x /Week Duration: 4 Weeks Plan: Start with restoring full motion without increase in symptoms, may bee to add in inferior glides with mobility to assist. Can use US to anterior aspect of shoulder as needed. Once improving work on scapular stability and RTC strengthening as tolerated. - Subjective Pt. is here today for her initial evaluation with diagnosis of R shoulder pain. Pt. reports hurting shoulder from what she believes as increased repetition at work. She reports symptoms started 2 years ago. She had taken time off and was doing a bit better, but is now back and is worse. 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 Pain at worst 10/10, constantly at least a 4-5/10 pain. She denies N/T and no issues with her x-rays. She did have some exercises from PT which she received 2 years ago, but did not provide much relief. Her pain is at anterior shoulder that radiates into deltoid region, she has been using her R UE move and just having L arm at her side as much as she can. She recently started lifting again and irritated her symptoms worse. She is hopeful to reduce symptoms in order to be able to complete all of her work, and reactional activities without limitations. - Pain R shoulder Pain Intensity (Out of 10): 4 Pain Intensity Range: 4, 10 - Objective POSTURE: FH with anterior rotated shoulders. PALPATION: Pt. has tenderness in B UT, R anterior shoulder near biceps grove. Pt. has pain at supraspinatus insertion as well. No pain to palpation of deltoid. NEURO: Pt. has normal sensation and normal DTR of BUEs. ROM: LUE full ROM without increase in symptoms. R UE flexion, 170deg increase NW at end range, abd 170deg increase NW at end range. Functional IR full no issues, functional ER C4 increase NW. MMT: LUE: full strength without increase in symptoms. RUE: full strength except, ER 17.1# compared to 26# on L, and abd 13# compared to 21# on L. Pain with both movements. - Special Tests R Shoulder Drop Sign - IS Test: Negative R Shoulder Empty Can - SS: Positive R Shoulder Belly Press - SupScap: Negative R Shoulder Neer - Impingement: Positive R Shoulder Beltrán Leo - Impingement: Positive R Shoulder Biceps Load Test - Labrum: Negative R Shoulder Yeargasons - SLAP: Negative R Shoulder Speeds Test - Labrum/Biceps: Negative - Balance/Special Test Scores Quick DASH Score: 40.9075 - Goals Goal 1:: LTG: Pt. to be I with HEP for RTC and scapular stability. Goal Time Frame: 2-4 Weeks Goal 2:: STG: Pt. to sleep throughout the night with 0-2/10 pain allowing for increased quality of life. Goal Time Frame: 2 Weeks Goal 3:: STG: Pt. to have 0-2/10 pain in R shoulder at rest. Goal Time Frame: 2 Weeks Goal 4:: LTG: Pt. to complete all work duties including lifting over head, reaching across body and all ADLs without increase in symptoms. Goal Time Frame: 2-4 Weeks Goal 5:: LTG: Pt. to have increased R shoulder strength by 10# in ER and abduction movements allowing increased stability and tolerance with all work related activities. Goal Time Frame: 4-6 Weeks - Rehabilitation Potential Physical Therapy Diagnosis: Pt. has signs and symptoms consistent with R shoulder pain. She has signs of RTC pathology hard to discern between tear and tendonosis due to pain. She has decent strength and fine passive motion. At this point in time I would suggest working to restore pain free motion and slow loading RTC to increase tensile strengthen. Rehabilitation Potential: Good - Anticipated Interventions Patient/Client Instruction: Educate patient on: Condition, Plan of Care, Risk Factors, Benefits of Fitness Program For the Purpose of:: To improve decision making, To facilitate caregiver knowledge, To improve self management, To prevent re-injury, To improve ability to perform tasks related to life management, To improve tolerance to ADL's Therapeutic Exercise to Include: Strength training, Power training, Endurance training, Body mechanics, Postural training, Flexibilty training, Passive ROM, Active ROM, Balta Exercises, Scapular Strength/Stabilizatio n For the Purpose of:: To decrease pain, To decrease swelling/inflammatio (more content not included)... Normal [facility] SHOULDER COMPLETE RTon 05-29 SHOULDER COMPLETE RT [place] [address] Patient: SENA HARTMAN Phone#: : [phone] Age: 21 Gender: F Pt. Type: Out Account: [id number] Location: Ordering: YVETTE LOIS Exam Date: 05/29/2021/16:18 Family Phys: Charge Code: [id number] Physician: Ogle Order #: [id number] DLP Dose#: PROCEDURE: X-RAY SHOULDER COMPLETE RT MIN 2 VIEWS COMPARISON: None. INDICATIONS: Pain. FINDINGS: BONES: Normal. No significant arthropathy or acute abnormality. SOFT TISSUES: Negative. No visible soft tissue swelling. EFFUSION: None visible. OTHER: Negative. CONCLUSION: 1. Unremarkable right shoulder radiographs Dictated by: Rhea Clements MD on 05/29/2021 at 17:23 Approved by: Rhea Clements MD on 05/29/2021 at 17:24 Normal [facility] US RUQ (GB/PANCREAS)on 07-30 US RUQ (GB/PANCREAS) [place] [address] Patient: SENA HARTMAN Phone#: : [phone] Age: 20 Gender: F Pt. Type: Out Account: [id number] Location: Ordering: [facility] Exam Date: 07/30/2020/9:23 Family Phys: NERY GOMEZ Charge Code: [id number] Physician: Ogle Order #: [id number] DLP Dose#: PROCEDURE: RUQ (GB) ULTRASOUND COMPARISON: None. INDICATIONS: Abdominal pain. FINDINGS: LIVER: Normal. Normal size and echotexture. No significant masses. BILIARY: A 16 millimeter gallbladder calculus is present. The common bile duct is mildly dilated at 6.1 millimeters. Intraductal calculus is not demonstrated. PANCREAS: Normal. No visible mass, abnormal atrophy, or ductal dilatation. RIGHT KIDNEY: Normal. No mass or obstruction. OTHER: Negative. CONCLUSION: 1. Cholelithiasis. 2. Common bile duct is mildly dilated. DICTATED BY: EDWIN COLBERT MD ON 07/30/2020 AT 12:02 APPROVED BY: EDWIN COLBERT MD ON 07/30/2020 AT 12:03 Normal [facility] Laboratory - Chemistry and C hemistry - challengeon 07-24-2020 Albumin [Mass/Vol] 4.4 g/dL Normal 3.6 - 5.1 g/dL [facility], [facility].; [facility] Albumin/Globulin [Mass ratio] 1.8 {ratio} Normal 1.0 - 2.5 [facility]; [facility] ALP [Catalytic activity/Vol] 61 U/L Normal 31 - 125 U/L [facility]; [facility], [facility]. ALT [Catalytic activity/Vol] 12 U/L Normal 6 - 29 U/L [facility], [facility].; [facility], [facility]. Amylase [Catalytic activity/Vol] 24 U/L Normal 21 - 101 U/L [facility], [facility].; [facility], [facility]. AST [Catalytic activity/Vol] 12 U/L Normal 10 - 30 U/L [facility].; [facility] Bilirubin [Mass/Vol] 0.4 mg/dL Normal 0.2 - 1.2 mg/dL [facility], [facility].; [facility] Calcium [Mass/Vol] 9.2 mg/dL Normal 8.6 - 10. 2 mg/dL [facility]; [facility] Chloride [Moles/Vol] 107 mmol/L Normal 98 - 110 mmol/L [facility], [facility].; [facility] CO2 [Moles/Vol] 25 mmol/L Normal 20 - 32 mmol/L [facility].; [facility] Creatinine [Mass/Vol] 0.63 mg/dL Normal 0.50 - 1.10 mg/dL [facility], [facility].; [facility], [facility]. GFR/1.73 sq M.predicted among blacks MDRD (S/P/Bld) [Vol rate/Area] 150 mL/min/{1.73_m2} Normal [facility], [facility].; [facility] Glucose [Mass/Vol] 89 mg/dL Normal 65 - 99 mg/dL [facility].; [facility], [facility]. Lipase [Catalytic activity/Vol] 20 U/L Normal 7 - 60 U/L [facility], [facility].; [facility], [facility]. Potassium [Moles/Vol] 4.1 mmol/L Normal 3.5 - 5.3 mmol/L [facility], [facility].; [facility], [facility]. Protein [Mass/Vol] 6.8 g/dL Normal 6.1 - 8.1 g/dL [facility], [facility].; [facility] Sodium [Moles/Vol] 140 mmol/L Normal 135 - 146 mmol/L [facility].; [facility] Urea nitrogen [Mass/Vol] 8 mg/dL Normal 7 - 25 mg/dL [facility].; [facility] Laboratory - Hematology and Cell countson 07-24-2020 Basophils (Bld) [#/Vol] 0.038 10*3/uL Normal 0 - 200 {cells/uL} [facility], [facility].; [facility] Basophils/100 WBC (Bld) 0.4 % Normal [facility].; [facility] Eosinophils (Bld) [#/Vol] 0.056 10*3/uL Normal 15 - 500 {cells/uL} [facility].; [facility] Eosinophils/100 WBC (Bld) 0.6 % Normal [facility]; [place] [employer] [facility] Erythrocyte distribution width (RBC) [Ratio] 11.7 % Normal 11.0 - 15.0 % [facility].; [facility] Hematocrit (Bld) [Volume fraction] 43.4 % Normal 35.0 - 45.0 % [facility].; [facility] Hemoglobin (Bld) [Mass/Vol] 14.8 g/dL Normal 11.7 - 15.5 g/dL [facility].; [facility] Lymphocytes (Bld) [#/Vol] 2.002 10*3/uL Normal 850 - 3900 {cells/uL} [facility].; [facility] Lymphocytes/100 WBC (Bld) 21.3 % Normal [facility]; [place] [employer] [facility] MCH (RBC) [Entitic mass] 30.5 pg Normal 27.0 - 33.0 pg [facility].; [facility], [facility]. MCHC (RBC) [Mass/Vol] 34.1 g/dL Normal 32.0 - 36.0 g/dL [facility], [facility].; [place] [employer] [facility], [facility]. MCV (RBC) [Entitic vol] 89.3 fL Normal 80.0 - 100.0 fL [facility].; [facility]. Monocytes (Bld) [#/Vol] 0.536 10*3/uL Normal 200 - 950 {cells/uL} [facility].; [place] [employer] [facility] Monocytes/100 WBC (Bld) 5.7 % Normal [facility].; [place] [employer] [facility], [facility]. Neutrophils (Bld) [#/Vol] 6.768 10*3/uL Normal 1500 - 7800 {cells/uL} [facility].; [place] [employer]. Neutrophils/100 WBC (Bld) 72 % Normal [facility].; [place] [employer], [place]. Platelet mean volume (Bld) [Entitic vol] 11.0 fL Normal 7.5 - 12.5 fL [facility].; [place] [employer], [place]. Platelets (Bld) [#/Vol] 258 10*3/uL Normal 140 - 400 [facility].; [place] [employer]. RBC (Bld) [#/Vol] 4.86 10*6/uL Normal 3.80 - 5.1 0 {Million/uL} [facility].; [place] [employer], [place]. WBC (Bld) [#/Vol] 9.4 10*3/uL Normal 3.8 - 10.8 [facility].; [employer] [facility]. No Panel Informationon 07-24 BUN/CREATININE RATIO NOT APPLICABLE Normal 6 - 22 [facility]; [place] [employer] [facility] eGFR NON-AFR. ARMENIAN 129 Normal [facility].; [place] [employer] [facility]. GLOBULIN 2.4 Normal 1.9 - 3.7 [facility].; [employer] [facility]. Laboratory - Chemistry and C hemistry - challengeon 11-11-2012 Albumin [Mass/Vol] 4.6 g/dL Normal 3.6 - 5.1 g/dL [facility].; [place] [employer] [facility], [facility]. Albumin/Globulin [Mass ratio] 1.8 {ratio} Normal 1.0 - 2.5 [facility].; [place] [employer]. ALP [Catalytic activity/Vol] 184 U/L Normal 104 - 471 U/L [facility].; [facility] ALT [Catalytic activity/Vol] 19 U/L Normal 8 - 24 U/L [facility].; [facility], [facility]. AST [Catalytic activity/Vol] 17 U/L Normal 12 - 32 U/L [facility].; [facility] Bilirubin [Mass/Vol] 0.3 mg/dL Normal 0.2 - 1.1 mg/dL [facility].; [facility] Calcium [Mass/Vol] 9.8 mg/dL Normal 8.9 - 10. 4 mg/dL [facility]; [facility] Chloride [Moles/Vol] 104 mmol/L Normal 98 - 110 mmol/L [facility]; [facility] CO2 [Moles/Vol] 23 mmol/L Normal 19 - 30 mmol/L [facility]; [facility] Creatinine [Mass/Vol] 0.56 mg/dL Normal 0.30 - 0.78 mg/dL [facility].; [facility] Free T3 [Mass/Vol] 4.0 pg/mL Normal 3.4 - 4.8 pg/mL [facility].; [facility] Free T4 [Mass/Vol] 0.9 ng/dL Normal 0.9 - 1.4 ng/dL [facility].; [facility], [facility]. GFR/1.73 sq M.predicted among blacks MDRD (S/P/Bld) [Vol rate/Area] SEE NOTE Normal [facility], [facility].; [facility], [facility]. GFR/1.73 sq M.predicted MDRD (S/P/Bld) [Vol rate/Area] SEE NOTE Normal [facility], [facility].; [facility], [facility]. Globulin (S) [Mass/Vol] 2.5 g/dL Normal 2.0 - 3.8 g/dL [facility], [facility].; [facility] Glucose [Mass/Vol] 84 mg/dL Normal 65 - 99 mg/dL [facility].; [facility] Potassium [Moles/Vol] 4.3 mmol/L Normal 3.8 - 5.1 mmol/L [facility]; [facility] Protein [Mass/Vol] 7.1 g/dL Normal 6.3 - 8.2 g/dL [facility]; [facility] Sodium [Moles/Vol] 139 mmol/L Normal 135 - 146 mmol/L [facility]; [facility] TSH Qn 1.78 m[IU]/L Normal 0.50 - 4.30 {mIU/L} [facility]; [facility] Urea nitrogen [Mass/Vol] 11 mg/dL Normal 7 - 20 mg/dL [facility]; [facility] Urea nitrogen/Creatinine [Mass ratio] 20.4 mg/mg Normal 6 - 22 [facility]; [facility] Vital Signs Date Time Vital Sign Value Performing Clinician Facility 12-04-2024 07:03-0400 Body mass index (BMI) [Ratio] 43.43 kg/m2 Yossi Alatorre APRN.[employer] Work Phone: [facility] 12-04-2024 07:03-0400 Body weight 114.76 kg Yossi Alatorre APRN.[employer] Work Phone: [facility] 12-04-2024 07:03-0400 Diastolic blood pressure 78 mm[Hg] Yossi Alatorre APRN.[employer] Work Phone: [facility] 12-04-2024 07:03-0400 Systolic blood pressure 128 mm[Hg] Yossi Alatorre APRN.[employer] Work Phone: [facility] 11-06-2024 13:48-0400 Body mass index (BMI) [Ratio] 43.08 kg/m2 Brigitte Proctor MD Work Phone: [facility] 11-06-2024 13:48-0400 Body weight 113.85 kg Brigitte rPoctor MD Work Phone: [facility] 11-06-2024 13:48-0400 Diastolic blood pressure 68 mm[Hg] Brigitte Proctor MD Work Phone: [facility] 11-06-2024 13:48-0400 Systolic blood pressure 126 mm[Hg] Brigitte Proctor MD Work Phone: [facility] 09-26-2024 08:26-0400 Body height 162.6 cm Davida Sravanthi [employer] Work Phone: [facility] 09-26-2024 08:26-0400 Body mass index (BMI) [Ratio] 43.19 kg/m2 Davida [place] [employer] Work Phone: [facility] 09-26-2024 08:26-0400 Body weight 114.13 kg Davida Sraavnthi [employer] Work Phone: [facility] 09-26-2024 08:26-0400 Diastolic blood pressure 78 mm[Hg] Davida Sravanthi [employer] Work Phone: [facility] 09-26-2024 08:26-0400 Systolic blood pressure 126 mm[Hg] Davida [place] [employer] Work Phone: [facility] 05-11-2024 07:28-0500 Body height 163.5 cm Davida Sravanthi [employer] Work Phone: [facility] 05-11-2024 07:28-0500 Body mass index (BMI) [Ratio] 42.92 kg/m2 Davida Sravanthi [employer] Work Phone: [facility] 05-11-2024 07:28-0500 Body weight 114.76 kg Davida [place] [employer] Work Phone: [facility] 05-11-2024 07:28-0500 Diastolic blood pressure 70 mm[Hg] Davida [place] [employer] Work Phone: [facility] 05-11-2024 07:28-0500 Systolic blood pressure 120 mm[Hg] Davida Sravanthi [employer] Work Phone: [facility] 12-15-2023 09:44-0400 Body height 163.19 cm Ivanna Nguyễn MA [facility].; [facility] 12-15-2023 09:44-0400 Body mass index (BMI) [Ratio] 42.14 kg/m2 Ivanna Nguyễn MA [facility].; [facility]. 12-15-2023 09:44-0400 Body surface area Derived from formula 2.15 m2 Ivanna Nguyễn MA [facility].; [facility]. 12-15-2023 09:44-0400 Body temperature 97.8 [degF] Ivanna Nguyễn MA [facility].; [facility]. 12-15-2023 09:44-0400 Body weight 112.24 kg Ivanna Nguyễn MA [facility] [employer].; [facility]. 12-15-2023 09:44-0400 Diastolic blood pressure 92 mm[Hg] Ivanna Nguyễn MA [facility].; [employer] [facility]. Comment on above: Patient Position: Sitting; Cuff Location : Left Arm; Cuff Size: Standard 12-15-2023 09:44-0400 Heart rate 97 /min Ivanna Nguyễn MA [facility].; [employer]. Comment on above: Pattern: Regular 12-15-2023 09:44-0400 Inhaled oxygen concentration 21 % Ivanna Nguyễn MA [facility].; [employer]. Comment on above: Room air 12-15-2023 09:44-0400 SaO2% (BldA) [Mass fraction] 97 % Ivanna Nguyễn MA [facility].; [employer] 12-15-2023 09:44-0400 Systolic blood pressure 143 mm[Hg] Ivanna Nguyễn MA [facility].; [employer]. Comment on above: Patient Position: Sitting; Cuff Location : Left Arm; Cuff Size: Standard 09-23-2023 10:41-0400 Body height 163.19 cm Radha Gonzalez LPN [facility].; [facility]. 09-23-2023 10:41-0400 Body mass index (BMI) [Ratio] 40.88 kg/m2 [facility]; [facility]. 09-23-2023 10:41-0400 Body surface area Derived from formula 2.12 m2 [facility].; [facility]. 09-23-2023 10:41-0400 Body temperature 98.8 [degF] [facility].; [facility], [facility]. Comment on above: Method: Tympanic 09-23-2023 10:41-0400 Body weight 108.86 kg [facility].; [facility], [facility]. 09-23-2023 10:41-0400 Diastolic blood pressure 83 mm[Hg] [facility].; [facility], [facility]. Comment on above: Patient Position: Sitting; Cuff Location : Left Arm; Cuff Size: Standard 09-23-2023 10:41-0400 Heart rate 79 /min [facility]; [place] [employer] [facility], [place]. Comment on above: Pattern: Regular 09-23-2023 10:41-0400 Systolic blood pressure 138 mm[Hg] [facility].; [place] [employer] [facility], [place]. Comment on above: Patient Position: Sitting; Cuff Location : Left Arm; Cuff Size: Standard 06-30-2023 12:10-0400 Diastolic blood pressure 80 mm[Hg] Arya Addison PA-C Work Phone: [facility].; [place] [employer] [facility], [place]. Comment on above: Patient Position: Sitting; Cuff Location : Left Arm; Cuff Size: Standard 06-30-2023 12:10-0400 Heart rate 96 /min Arya Marstetler PA-C Work Phone: [facility].; [place] [employer] [facility], [place]. Comment on above: Pattern: Regular 06-30-2023 12:10-0400 Systolic blood pressure 118 mm[Hg] Luke E Azael PA-C Work Phone: [employer]; [employer]. Comment on above: Patient Position: Sitting; Cuff Location : Left Arm; Cuff Size: Standard 06-30-2023 12:10-0400 Diastolic blood pressure 82 mm[Hg] Luke E Azael PA-C Work Phone: [employer]; [email or web address]. Comment on above: Patient Position: Sitting; Cuff Location : Left Arm; Cuff Size: Standard 06-30-2023 12:10-0400 Heart rate 92 /min Luke E Azael PA-C Work Phone: [place] [employer]; [employer]. Comment on above: Pattern: Regular 06-30-2023 12:10-0400 Systolic blood pressure 117 mm[Hg] Luke E Azael PA-C Work Phone: [employer]; [email or web address]. Comment on above: Patient Position: Sitting; Cuff Location : Left Arm; Cuff Size: Standard 06-30-2023 12:10-0400 Diastolic blood pressure 87 mm[Hg] Luke E Azael PA-C Work Phone: [place] [employer]; [email or web address]. Comment on above: Patient Position: Sitting; Cuff Location : Left Arm; Cuff Size: Standard 06-30-2023 12:10-0400 Heart rate 81 /min Luke E Azael PA-C Work Phone: [employer].; [email or web address]. Comment on above: Pattern: Regular 06-30-2023 12:10-0400 Systolic blood pressure 118 mm[Hg] Luke E Azael PA-C Work Phone: [employer].; [email or web address]. Comment on above: Patient Position: Sitting; Cuff Location : Left Arm; Cuff Size: Standard 06-30-2023 08:02-0400 Body height 163.19 cm Luke E Azael PA-C Work Phone: [employer] [facility].; [place] [employer] [facility] 06-30-2023 08:02-0400 Body mass index (BMI) [Ratio] 42.41 kg/m2 Luke E Azael PA-C Work Phone: [facility] [employer] [facility] 06-30-2023 08:02-0400 Body surface area Derived from formula 2.15 m2 Luke E Azael PA-C Work Phone: [place] [employer].; [facility] 06-30-2023 08:02-0400 Body weight 112.95 kg Luke E Azael PA-C Work Phone: [place] [employer].; [place] [employer] [facility] 06-30-2023 08:02-0400 Diastolic blood pressure 88 mm[Hg] Luke E Azael PA-C Work Phone: [employer].; [employer]. Comment on above: Patient Position: Sitting; Cuff Location : Left Arm; Cuff Size: Standard 06-30-2023 08:02-0400 Heart rate 91 /min Luke E Azael PA-C Work Phone: [place] [employer]; [employer]. Comment on above: Pattern: Regular 06-30-2023 08:02-0400 Systolic blood pressure 148 mm[Hg] Luke E Azael PA-C Work Phone: [place] [employer].; [employer]. Comment on above: Patient Position: Sitting; Cuff Location : Left Arm; Cuff Size: Standard 10-30-2022 14:43-0400 Body height 163.19 cm Sandra Mitchell RN [place] [employer].; [employer]. 10-30-2022 14:43-0400 Body mass index (BMI) [Ratio] 42.07 kg/m2 Sandra Mitchell RN [facility].; [facility]. 10-30-2022 14:43-0400 Body surface area Derived from formula 2.15 m2 Sandra Mitchell RN [facility].; [facility] 10-30-2022 14:43-0400 Body temperature 98.9 [degF] Sandra Mitchell RN [facility].; [employer] [facility]. Comment on above: Method: Tympanic 10-30-2022 14:43-0400 Body weight 112.04 kg Sandra Mitchell RN [facility].; [facility]. 10-30-2022 14:43-0400 Diastolic blood pressure 69 mm[Hg] Sandra Mitchell RN [facility].; [facility]. Comment on above: Patient Position: Sitting; Cuff Location : Left Arm; Cuff Size: Large 10-30-2022 14:43-0400 Heart rate 93 /min Sandra Mitchell RN [facility].; [employer]. Comment on above: Pattern: Regular 10-30-2022 14:43-0400 Inhaled oxygen concentration 20 % Sandra Mitchell RN [facility].; [place] [employer] [facility]. Comment on above: Room air 10-30-2022 14:43-0400 Inhaled oxygen concentration 21 % Sandra Mitchell RN [facility].; [employer]. Comment on above: Room air 10-30-2022 14:43-0400 SaO2% (BldA) [Mass fraction] 99 % Sandra Mitchell RN [facility].; [employer]. 10-30-2022 14:43-0400 Systolic blood pressure 105 mm[Hg] Sandra Mitchell RN [facility].; [employer]. Comment on above: Patient Position: Sitting; Cuff Location : Left Arm; Cuff Size: Large 04-22-2022 16:11-0500 Body temperature 97.2 [degF] Cindy Johnson [facility].; [facility]. Comment on above: Method: Tympanic 04-22-2022 16:11-0500 Diastolic blood pressure 88 mm[Hg] Cindy Johnson MA [facility].; [place] [employer] [facility]. Comment on above: Patient Position: Sitting; Cuff Location : Left Arm; Cuff Size: Standard 04-22-2022 16:11-0500 Heart rate 86 /min Cindy Johnson MA [facility].; [place] [employer]. Comment on above: Pattern: Regular 04-22-2022 16:11-0500 Inhaled oxygen concentration 20 % Cindy Johnson MA [facility].; [place] [employer]. Comment on above: Room air 04-22-2022 16:11-0500 Inhaled oxygen concentration 21 % Cindy Johnson MA [facility].; [place] [employer]. Comment on above: Room air 04-22-2022 16:11-0500 SaO2% (BldA) [Mass fraction] 98 % Cindy Johnson MA [facility].; [place] [employer]. 04-22-2022 16:11-0500 Systolic blood pressure 136 mm[Hg] Cindy Johnson MA [facility].; [place] [employer] [facility]. Comment on above: Patient Position: Sitting; Cuff Location : Left Arm; Cuff Size: Standard 12-11-2021 07:57-0400 Body height 163.19 cm Melanie Ashford LPN [facility], [facility].; [facility]. 12-11-2021 07:57-0400 Body mass index (BMI) [Ratio] 43.94 kg/m2 Melanie Ashford LPN [facility], [facility].; [facility]. 12-11-2021 07:57-0400 Body surface area Derived from formula 2.19 m2 Melanie Ashford LPN [facility], [facility].; [place] [employer] [facility]. 12-11-2021 07:57-0400 Body weight 117.03 kg Melanie Ashford LPN [facility], [facility].; [place] [employer] [facility]. 12-11-2021 07:57-0400 Diastolic blood pressure 81 mm[Hg] Melanie Reichhunter BARTH [facility].; [facility]. Comment on above: Patient Position: Sitting; Cuff Location : Left Arm; Cuff Size: Standard 12-11-2021 07:57-0400 Heart rate 74 /min Melaniemichael Ashford [employer]EW[employer] [facility].; [facility], [facility]. Comment on above: Pattern: Regular 12-11-2021 07:57-0400 Systolic blood pressure 123 mm[Hg] Melaniemichael Ashford [facility].; [facility], [facility]. Comment on above: Patient Position: Sitting; Cuff Location : Left Arm; Cuff Size: Standard 09-18-2021 16:09-0400 Body height 163.19 cm Yvette Abreu PA-C Work Phone: [facility].; [facility] 09-18-2021 16:09-0400 Body mass index (BMI) [Ratio] 43.94 kg/m2 Yvette Abreu PA-C Work Phone: [facility].; [facility]. 09-18-2021 16:09-0400 Body surface area Derived from formula 2.19 m2 Yvette Abreu PA-C Work Phone: [facility].; [place] [employer] [facility]. 09-18-2021 16:09-0400 Body weight 117.03 kg Yvette Bareu PA-C Work Phone: [facility].; [place] [employer] [facility]. 09-18-2021 16:09-0400 Diastolic blood pressure 78 mm[Hg] Yvette Abreu PA-C Work Phone: [facility].; [employer]. Comment on above: Patient Position: Sitting; Cuff Location : Left Arm; Cuff Size: Standard 09-18-2021 16:09-0400 Heart rate 97 /min Yvette Abreu PA-C Work Phone: [facility].; [employer]. Comment on above: Pattern: Regular 09-18-2021 16:09-0400 Systolic blood pressure 120 mm[Hg] Yvette Abreu PA-C Work Phone: [employer]; [email or web address]. Comment on above: Patient Position: Sitting; Cuff Location : Left Arm; Cuff Size: Standard 05-28-2021 16:01-0500 Body height 163.19 cm Shannon Regalador [facility].; [email or web address]. 05-28-2021 16:01-0500 Body mass index (BMI) [Ratio] 42.41 kg/m2 Shannon Chapo [facility].; [employer]. 05-28-2021 16:01-0500 Body surface area Derived from formula 2.15 m2 Shannon Regalador [facility].; [email or web address]. 05-28-2021 16:01-0500 Body weight 112.95 kg Shannon Regalador [facility].; [email or web address]. 05-28-2021 16:01-0500 Diastolic blood pressure 73 mm[Hg] Shannon Regalador [facility].; [email or web address]. Comment on above: Patient Position: Sitting; Cuff Location : Right Arm; Cuff Size: Standard 05-28-2021 16:01-0500 Heart rate 87 /min Shannon Regalador [facility].; [email or web address]. Comment on above: Pattern: Regular 05-28-2021 16:01-0500 Systolic blood pressure 115 mm[Hg] Shannon Regalador [facility].; [email or web address]. Comment on above: Patient Position: Sitting; Cuff Location : Right Arm; Cuff Size: Standard 10-10-2020 08:54-0400 Body height 163.19 cm Tania Catherine LPN [employer].; [email or web address]. 10-10-2020 08:54-0400 Body mass index (BMI) [Ratio] 40.19 kg/m2 Tania Catherine LPN [employer], [employer].; [email or web address]. 10-10-2020 08:54-0400 Body surface area Derived from formula 2.1 m2 Tania Catherine LPN [facility], [facility].; [facility]. 10-10-2020 08:54-0400 Body weight 107.05 kg [facility], [facility].; [place] [employer] [facility]. 10-10-2020 08:54-0400 Diastolic blood pressure 62 mm[Hg] Tania [facility], [facility].; [employer] [facility], [facility]. Comment on above: Patient Position: Sitting; Cuff Location : Left Arm; Cuff Size: Standard 10-10-2020 08:54-0400 Heart rate 73 /min T[facility], [facility].; [place] [employer] [facility], [facility]. Comment on above: Pattern: Regular 10-10-2020 08:54-0400 Systolic blood pressure 114 mm[Hg] Tania Catherien [facility], [facility].; [employer], [facility]. Comment on above: Patient Position: Sitting; Cuff Location : Left Arm; Cuff Size: Standard 07-24-2020 10:50-0400 Body height 163.19 cm Shasha Natalie Tessa [facility], [facility].; [place] [employer] [facility], [facility]. 07-24-2020 10:50-0400 Body mass index (BMI) [Ratio] 38.66 kg/m2 Shasha Zarate [facility], [facility].; [employer] [facility], [facility]. 07-24-2020 10:50-0400 Body surface area Derived from formula 2.07 m2 Shasha Zarate [employer] [facility], [facility].; [place] [employer] [facility], [facility]. 07-24-2020 10:50-0400 Body temperature 97.4 [degF] Charliee Natalie Tessa [employer] [facility], [facility].; [employer]. Comment on above: Method: Tympanic 07-24-2020 10:50-0400 Body weight 102.97 kg Charliee Natalie Zarate [employer] [facility], [facility].; [employer], [employer]. 07-24-2020 10:50-0400 Diastolic blood pressure 76 mm[Hg] Neilee Natalie Zarate [employer] [facility], [facility].; [employer]. Comment on above: Patient Position: Sitting; Cuff Location : Right Arm; Cuff Size: Standard 07-24-2020 10:50-0400 Heart rate 82 /min Neilee L Vess [email or web address]. Comment on above: Pattern: Regular 07-24-2020 10:50-0400 Systolic blood pressure 131 mm[Hg] Neilee L Vess [email or web address].; [email or web address]. Comment on above: Patient Position: Sitting; Cuff Location : Right Arm; Cuff Size: Standard 07-14-2018 08:36-0400 Body height 163.19 cm Marcia Sheffield RN [employer].; [email or web address]. 07-14-2018 08:36-0400 Body mass index (BMI) [Percentile] Per age and sex 99 % Marcia Sheffield RN [employer].; [email or web address]. 07-14-2018 08:36-0400 Body mass index (BMI) [Ratio] 42.49 kg/m2 Marcia Sheffield RN [employer].; [email or web address]. 07-14-2018 08:36-0400 Body surface area Derived from formula 2.16 m2 Marcia Sheffield RN [employer].; [email or web address]. 07-14-2018 08:36-0400 Body temperature 97.8 [degF] Marcia Sheffield RN [employer].; [email or web address]. Comment on above: Method: Tympanic 07-14-2018 08:36-0400 Body weight 113.17 kg Marcia Sheffield RN [employer].; [email or web address]. 07-14-2018 08:36-0400 Diastolic blood pressure 84 mm[Hg] Marcia Sheffield RN [email or web address].; [email or web address]. Comment on above: Patient Position: Sitting; Cuff Location : Left Arm; Cuff Size: Standard 07-14-2018 08:36-0400 Heart rate 84 /min Marcia Sheffield RN [email or web address].; [email or web address]. Comment on above: Pattern: Regular 07-14-2018 08:36-0400 Inhaled oxygen concentration 20 % Marcia Sheffield RN [employer].; [email or web address]. Comment on above: Room air 07-14-2018 08:36-0400 Inhaled oxygen concentration 21 % Marcia Sheffield RN [place] [employer] [facility].; [employer]. Comment on above: Room air 07-14-2018 08:36-0400 SaO2% (BldA) [Mass fraction] 99 % Marcia Sheffield RN [facility].; [employer]. 07-14-2018 08:36-0400 Systolic blood pressure 148 mm[Hg] Marcia Sheffield RN [place] [employer] [facility].; [email or web address]. Comment on above: Patient Position: Sitting; Cuff Location : Left Arm; Cuff Size: Standard 01-03-2018 09:22-0400 Body height 163.19 cm Marcia Sheffield RN [facility].; [email or web address]. 01-03-2018 09:22-0400 Body mass index (BMI) [Percentile] Per age and sex 99 % Marcia Sheffield RN [facility].; [employer]. 01-03-2018 09:22-0400 Body mass index (BMI) [Ratio] 38.71 kg/m2 Marcia Sheffield RN [place] [employer] [facility].; [employer]. 01-03-2018 09:22-0400 Body surface area Derived from formula 2.07 m2 Marcia Sheffield RN [place] [employer] [facility].; [employer]. 01-03-2018 09:22-0400 Body temperature 98.7 [degF] Marcia Sheffield RN [place] [employer].; [employer]. Comment on above: Method: Tympanic 01-03-2018 09:22-0400 Body weight 103.1 kg Marcia Sheffield RN [place] [employer] [facility].; [email or web address]. 01-03-2018 09:22-0400 Diastolic blood pressure 78 mm[Hg] Marcia Sheffield RN [place] [email or web address]. Comment on above: Patient Position: Sitting; Cuff Location : Left Arm; Cuff Size: Standard 01-03-2018 09:22-0400 Heart rate 93 /min Marcia Sheffield RN [employer], [employer].; [email or web address]. Comment on above: Pattern: Regular 01-03-2018 09:22-0400 Systolic blood pressure 147 mm[Hg] Marcia Sheffield RN [place] [employer], [employer].; [email or web address]. Comment on above: Patient Position: Sitting; Cuff Location : Left Arm; Cuff Size: Standard 08-31-2017 13:50-0400 Body height 163.19 cm Sarahdoee Natalie Tessa [email or web address]. 08-31-2017 13:50-0400 Body mass index (BMI) [Percentile] Per age and sex 99 % Neilee L Vess [employer], [employer].; [email or web address]. 08-31-2017 13:50-0400 Body mass index (BMI) [Ratio] 39.51 kg/m2 Neilee L Vess [employer], [employer].; [email or web address]. 08-31-2017 13:50-0400 Body surface area Derived from formula 2.09 m2 Real Mattersilee L Tessa [employer], [employer].; [email or web address]. 08-31-2017 13:50-0400 Body temperature 98.6 [degF] Real Mattersilee L Vess [employer], [employer].; [email or web address]. Comment on above: Method: Tympanic 08-31-2017 13:50-0400 Body weight 105.24 kg Real Mattersilee L Tessa [email or web address]. 08-10-2017 14:07-0400 Body height 163.19 cm Neilee L Tessa [employer], [employer].; [email or web address]. 08-10-2017 14:07-0400 Body mass index (BMI) [Percentile] Per age and sex 99 % Neilee L Vess [employer], [employer].; [email or web address]. 08-10-2017 14:07-0400 Body mass index (BMI) [Ratio] 40.02 kg/m2 Neilee L Vess [employer], [employer].; [email or web address]. 08-10-2017 14:07-0400 Body surface area Derived from formula 2.1 m2 Neilee L Vess [employer], [employer].; [email or web address]. 08-10-2017 14:070400 Body weight 106.6 kg Neilee L Vess [employer], [employer].; [employer], [employer]. 08-10-2017 14:07-0400 Diastolic blood pressure 79 mm[Hg] Neilee L Vess [email or web address].; [email or web address]. Comment on above: Patient Position: Sitting; Cuff Location : Left Arm; Cuff Size: Standard 08-10-2017 14:07-0400 Heart rate 97 /min Neilee L Vess [employer], [employer].; [email or web address]. Comment on above: Pattern: Regular 08-10-2017 14:07-0400 Systolic blood pressure 138 mm[Hg] Neilee L Vess [employer], [employer].; [email or web address]. Comment on above: Patient Position: Sitting; Cuff Location : Left Arm; Cuff Size: Standard 01-13-2017 07:010400 Body height 163.19 cm Yvette Abreu PA-C Work Phone: [employer]; [email or web address]. 01-13-2017 07:01-0400 Body mass index (BMI) [Percentile] Per age and sex 99 % Yvette Abreu PA-C Work Phone: [email or web address].; [email or web address] 01-13-2017 07:01-0400 Body mass index (BMI) [Ratio] 37.81 kg/m2 Yvette Abreu PA-C Work Phone: [email or web address].; [email or web address]. 01-13-2017 07:010400 Body surface area Derived from formula 2.05 m2 Yvette Abreu PA-C Work Phone: [email or web address].; [email or web address]. 01-13-2017 07:01-0400 Body temperature 97 [degF] Yvette Abreu PA-C Work Phone: [email or web address].; [email or web address]. 01-13-2017 07:01-0400 Body weight 100.7 kg Yvette Abreu PA-C Work Phone: [employer]; [email or web address]. 12-28-2016 08:11-0400 Body height 163.19 cm Marcia Sheffield RN [employer].; [email or web address]. 12-28-2016 08:11-0400 Body mass index (BMI) [Percentile] Per age and sex 99 % Marcia Sheffield RN [employer].; [email or web address]. 12-28-2016 08:11-0400 Body mass index (BMI) [Ratio] 37.81 kg/m2 Marcia Sheffield RN [employer].; [email or web address]. 12-28-2016 08:11-0400 Body surface area Derived from formula 2.05 m2 Marcia Sheffield RN [employer].; [email or web address]. 12-28-2016 08:11-0400 Body temperature 98.8 [degF] Marcia Sheffield RN [email or web address].; [email or web address]. Comment on above: Method: Tympanic 12-28-2016 08:11-0400 Body weight 100.7 kg Marcia Sheffield RN [employer].; [email or web address]. 08-07-2015 16:32-0400 Body temperature 98.3 [degF] Brigitte Torres LPN [employer].; [email or web address]. Comment on above: Method: Tympanic 08-07-2015 16:32-0400 Body weight 87.54 kg Brigitte Torres LPN [email or web address].; [email or web address]. 08-07-2015 16:32-0400 Heart rate 93 /min Brigitte Torres LPN [employer].; [email or web address]. Comment on above: Pattern: Regular 08-07-2015 16:32-0400 Inhaled oxygen concentration 20 % Brigitte Torres LPN [employer].; [email or web address]. Comment on above: Room air 08-07-2015 16:32-0400 Inhaled oxygen concentration 21 % Brigitte Torres LPN [facility], [facility].; [employer]. Comment on above: Room air 08-07-2015 16:32-0400 SaO2% (BldA) [Mass fraction] 99 % Brigitte Torres LPN [facility], [facility].; [employer] [facility] 02-12-2014 17:36-0500 Body height 157.48 cm Luz Diehl LPN [facility], [facility].; [employer]. 02-12-2014 17:36-0500 Body mass index (BMI) [Percentile] Per age and sex 99 % Luz Diehl LPN [facility], [facility].; [employer], [employer]. 02-12-2014 17:36-0500 Body mass index (BMI) [Ratio] 36.4 kg/m2 Luz Diehl [facility], [facility].; [employer]. 02-12-2014 17:36-0500 Body surface area Derived from formula 1.91 m2 Luz Diehl LPN [facility], [facility].; [employer]. 02-12-2014 17:36-0500 Body temperature 98.6 [degF] Luz Diehl [facility], [facility].; [employer]. 02-12-2014 17:36-0500 Body weight 90.27 kg Luz Diehl [employer] [facility], [facility].; [employer]. 06-15-2013 16:25-0500 Body height 156.46 cm Nery Gomez PA-C Work Phone: [employer].; [email or web address]. 06-15-2013 16:25-0500 Body mass index (BMI) [Percentile] Per age and sex 99 % Nery Gomez PA-C Work Phone: [employer].; [email or web address]. 06-15-2013 16:25-0500 Body mass index (BMI) [Ratio] 34.12 kg/m2 Nery J Gomez PA-C Work Phone: [place] [employer].; [email or web address]. 06-15-2013 16:25-0500 Body surface area Derived from formula 1.84 m2 Nery Almazaner PA-C Work Phone: [place] [employer].; [email or web address]. 06-15-2013 16:25-0500 Body weight 83.52 kg Nery Almazaner PA-C Work Phone: [employer].; [email or web address]. 06-15-2013 16:25-0500 Diastolic blood pressure 70 mm[Hg] Nery Almazaner PA-C Work Phone: [employer]; [email or web address]. Comment on above: Patient Position: Sitting; Cuff Location : Left Arm; Cuff Size: Standard 06-15-2013 16:25-0500 Heart rate 85 /min Nery Almazaner PA-C Work Phone: [employer]; [email or web address]. Comment on above: Pattern: Regular 06-15-2013 16:25-0500 Systolic blood pressure 124 mm[Hg] Nery Gomez PA-C Work Phone: [place] [employer].; [email or web address]. Comment on above: Patient Position: Sitting; Cuff Location : Left Arm; Cuff Size: Standard 03-25-2011 15:17-0500 Body height 144.78 cm Jordyn Stuckey [employer] [facility].; [employer]. 03-25-2011 15:17-0500 Body mass index (BMI) [Percentile] Per age and sex 99 % Jordyn Sondra [employer] [facility].; [employer]. 03-25-2011 15:17-0500 Body mass index (BMI) [Ratio] 28.56 kg/m2 Jordyn Sondra [employer] [facility], [facility].; [employer]. 03-25-2011 15:17-0500 Body surface area Derived from formula 1.51 m2 Jordyn Stuckey [facility], [facility].; [employer] [facility]. 03-25-2011 15:17-0500 Body temperature 96.2 [degF] Radha Amaro [facility].; [employer] [facility]. Comment on above: Method: Tympanic 03-25-2011 15:17-0500 Body weight 59.88 kg Radha Amaro [facility], [facility].; [employer] [facility]. 10-14-2010 10:53-0400 Body height 142.24 cm Radha Amaro [facility], [facility].; [employer] [facility]. 10-14-2010 10:53-0400 Body mass index (BMI) [Percentile] Per age and sex 98 % JordynRadha Amaro [facility], [facility].; [employer] [facility], [employer]. 10-14-2010 10:53-0400 Body mass index (BMI) [Ratio] 27.58 kg/m2 Radha Amaro [facility], [facility].; [place] [employer] [facility], [facility]. 10-14-2010 10:53-0400 Body surface area Derived from formula 1.44 m2 [facility] Sondra [facility], [facility].; [employer] [facility], [employer]. 10-14-2010 10:53-0400 Body temperature 97.3 [degF] Radha Amaro [employer] [facility], [facility].; [employer]. Comment on above: Method: Tympanic 10-14-2010 10:53-0400 Body weight 55.79 kg Radha Amaro [employer] [facility], [facility].; [employer]. 04-07-2010 15:01-0500 Body height 138.43 cm Yvette Abreu PA-C Work Phone: [place] [employer] [facility].; [employer]. 04-07-2010 15:01-0500 Body mass index (BMI) [Percentile] Per age and sex 99 % Yvette Abreu PA-C Work Phone: [facility].; [employer]. 04-07-2010 15:01-0500 Body mass index (BMI) [Ratio] 27.93 kg/m2 Yvette Abreu PA-C Work Phone: [employer]; [email or web address]. 04-07-2010 15:01-0500 Body surface area Derived from formula 1.39 m2 Yvette Abreu PA-C Work Phone: [employer]; [employer] 04-07-2010 15:01-0500 Body temperature 98.4 [degF] Yvette Abreu PA-C Work Phone: [employer]; [email or web address]. Comment on above: Method: Tympanic 04-07-2010 15:0500 Body weight 53.52 kg Yvette Abreu PA-C Work Phone: [employer]; [employer] Encounters Encounter Date Encounter Type Care Provider Facility Start: 02-02-2025 End: 02-02-2025 ambulatory [facility] Facility:[facility] Start: 01-29-2025 End: 01-29-2025 ambulatory [facility] Facility:[facility] Start: 01-10-2025 End: 01-10-2025 ambulatory BINA BAJWA Facility:[facility] Start: 01-01-2025 End: 01-01-2025 ambulatory BRIGITTE PROCTOR Facility:[facility] Start: 12-04-2024 End: 12-04-2024 Patient encounter procedure Yossi Alatorre APRN.CNP Work Phone: OB/Gynecology Comment on above: Supervision of high risk , antepartum (HCC) (Primary Dx); 16 weeks gestation of (HCC); Rh negative state in antepartum period (HCC); Obesity affecting in second trimester, unspecified obesity type (HCC) Start: 12-04-2024 End: 12-04-2024 ambulatory YOSSI ALATORRE Facility:[facility] Start: 11-06-2024 End: 11-06-2024 ambulatory DAVIDA FISHMAN Facility:[facility] Start: 11-06-2024 End: 11-06-2024 Patient encounter procedure Brigitte Proctor MD Work Phone: OB/Gynecology Comment on above: 12 weeks gestation o f (HCC) (Primary Dx); Umbilical cord cyst during , antepartum (HCC); Supervision of high risk , antepartum (HCC); Class 3 severe obesity without serious comorbidity with body mass index (BMI) of 40.0 to 44.9 in adult, unspecified obesity type (HCC) Encounter for antena emanuel screening for malformation using ultrasound (HCC) (Primary Dx); 12 weeks gestation of (HCC); Obesity affecting in second trimester, unspecified obesity type (HCC) Start: 11-06-2024 End: 11-06-2024 ambulatory BRIGITTE PROCTOR Facility:[facility] Start: 10-10-2024 End: 10-10-2024 Telephone encounter Ashley Boyd MD Work Phone: OB/Gynecology Comment on above: Care Start: 10-10-2024 End: 10-10-[address] [employer] [facility] Work Phone: OB/Gynecology Comment on above: Umbilical cord cyst during , antepartum (HCC) (Primary Dx); 8 weeks gestation of (HCC) Start: 10-10-2024 End: 10-10-2024 ambulatory DAVIDA FISHMAN Facility:[facility] Start: 10-09-2024 End: 10-09-2024 Telephone encounter Amelia Mendoza APRN.CNM Work Phone: OB/Gynecology Start: 09-27-2024 End: 09-27-2024 Telephone encounter Davida Fishman APRN.[employer] Work Phone: OB/Gynecology Comment on above: Appointment Start: 09-26-2024 End: 11-26-2024 Follow-up encounter Davida Fishman APRN.CNP Work Phone: OB/Gynecology Start: 09-26-2024 End: 09-26-2024 Patient encounter procedure Davida Fishman APRN.ZOE Work Phone: OB/Gynecology Comment on above: 6 weeks gestation of (HCC) (Primary Dx); Supervision of high risk , antepartum (HCC); Uncertain dates, antepartum, unspecified trimester (HCC); Screen for STD (sexually transmitted disease); Class 3 severe obesity without serious comorbidity with body mass index (BMI) of 40.0 to 44.9 in adult, unspecified obesity type (HCC) Start: 09-26-2024 End: 09-26-2024 ambulatory DAVIDA FISHMAN Facility:[facility] Start: 09-20-2024 End: 09-20-2024 Telephone encounter Davida Fishman APRN.ZOE Work Phone: OB/Gynecology Comment on above: Appointment; Patient Update Start: 05-23-2024 End: 07-23-2024 Follow-up encounter Davida Fishman APRNREHAN Work Phone: OB/Gynecology Start: 05-11-2024 End: 05-11-2024 ambulatory DAVIDA FISHMAN Facility:[facility] Start: 05-11-2024 End: 05-11-2024 Patient encounter procedure Davida Fishman APRN.ZOE Work Phone: OB/Gynecology Comment on above: Encounter for gyneco logical examination (general) (routine) without abnormal findings (Primary Dx); Screening for cervical cancer; Menorrhagia with regular cycle Start: 05-11-2024 End: 05-11-2024 Patient encounter status Davida Fishman [employer] Work Phone: [facility] Start: 12-16-2023 End: 12-16-2023 Medication Yvette Abreu PA-C Work Phone: [email or web address]. Start: 12-15-2023 End: 12-15-2023 Office outpatient visit 15 minutes Yvette Abreu PA-C Work Phone: [email or web address]. Start: 09-23-2023 End: 09-23-2023 Office outpatient visit 15 minutes Yvette Abreu PA-C Work Phone: [email or web address]. Start: 06-30-2023 End: 06-30-2023 Office outpatient visit 15 minutes Yvette Abreu PA-C Work Phone: [employer] Start: 11-02-2022 End: 11-02-2022 Historical Summary Yvette Abreu PA-C Work Phone: [employer] Start: 10-30-2022 End: 10-30-2022 Office outpatient visit 15 minutes Yvette Abreu PA-C Work Phone: [employer] Start: 04-22-2022 End: 04-22-2022 Office outpatient visit 15 minutes Yvette Abreu PA-C Work Phone: [employer] Start: 12-11-2021 End: 12-11-2021 Office outpatient visit 15 minutes Yvette Abreu PA-C Work Phone: [employer] Start: 09-18-2021 End: 09-18-2021 Office outpatient visit 25 minutes Yvette Abreu PA-C Work Phone: [employer] Start: 08-19-2021 End: 08-19-2021 [facility] Start: 07-15-2021 End: 07-15-2021 Patient encounter procedure Yvette Abreu PA-C Work Phone: [employer] Start: 07-14-2021 End: 07-14-2021 ambulatory YVETTE ABREU [facility] Start: 07-07-2021 End: 07-07-2021 Orders Yvette Abreu PA-C Work Phone: [employer] Start: 06-02-2021 End: 06-02-2021 Patient encounter procedure Yvette Abreu PA-C Work Phone: [employer] Start: 05-29-2021 End: 05-29-2021 ambulatory YVETTE ABREU [facility] Start: 05-28-2021 End: 05-28-2021 Office outpatient visit 15 minutes Yvette Abreu PA-C Work Phone: [employer] Start: 10-10-2020 End: 10-10-2020 Office outpatient visit 15 minutes Yvette Abreu PA-C Work Phone: [employer] Start: 08-02-2020 End: 08-02-2020 Patient encounter procedure Luis Mancilla Work Phone: [facility] Start: 08-02-2020 Results Only Luis Barnhart dy Work Phone: General Surgery Start: 08-01-2020 End: 08-01-2020 Patient encounter procedure Yvette Abreu PA-C Work Phone: [employer] Start: 07-30-2020 End: 07-30-2020 ambulatory [facility] Start: 07-24-2020 End: 07-24-2020 Office outpatient visit 15 minutes Yvette Abreu PA-C Work Phone: [employer] Start: 07-14-2018 End: 07-14-2018 Patient encounter procedure Yvette Abreu PA-C Work Phone: [employer] Start: 01-03-2018 End: 01-03-2018 Office outpatient visit 15 minutes Yvette Abreu PA-C Work Phone: [employer] Start: 12-30-2017 End: 12-30-2017 Historical Summary Yvette Abreu PA-C Work Phone: [employer] Start: 08-31-2017 End: 08-31-2017 Office outpatient visit 10 minutes Yvette Abreu PA-C Work Phone: [employer] Start: 08-10-2017 End: 08-10-2017 Office outpatient visit 15 minutes Yvette Abreu PA-C Work Phone: [facility] Start: 01-13-2017 End: 01-13-2017 Office outpatient visit 15 minutes Yvette Abreu PA-C Work Phone: [facility] Start: 01-08-2017 End: 01-08-2017 Medication Yvette Abreu PA-C Work Phone: [facility] Start: 12-28-2016 End: 12-28-2016 Office outpatient visit 25 minutes Yvette Abreu PA-C Work Phone: [facility] Start: 08-07-2015 End: 08-07-2015 Patient encounter procedure Yvette Abreu PA-C Work Phone: [email or web address]. Start: 05-21-2014 End: 05-21-2014 Orders Yvette Abreu PA-C Work Phone: [facility] Start: 05-21-2014 End: 05-21-2014 Office outpatient visit 15 minutes Yvette Abreu PA-C Work Phone: [facility] Start: 02-14-2014 End: 02-14-2014 Orders Yvette Abreu PA-C Work Phone: [employer] Start: 02-12-2014 End: 02-12-2014 Patient encounter procedure Yvette Abreu PA-C Work Phone: [employer] Start: 06-15-2013 End: 06-15-2013 Patient encounter procedure Yvette Abreu PA-C Work Phone: [facility] Start: 01-25-2013 End: 01-25-2013 Medication Yvette Abreu PA-C Work Phone: [email or web address]. Start: 11-28-2012 End: 11-28-2012 Patient encounter procedure Yvette Abreu PA-C Work Phone: [facility] Start: 11-11-2012 End: 11-14-2012 Orders Yvette Abreu PA-C Work Phone: [facility] Start: 11-02-2012 End: 11-02-2012 Patient encounter procedure Yvette Abreu PA-C Work Phone: [facility] Start: 11-02-2012 End: 11-02-2012 Nursing evaluation of patient and report Yvette Abreu PA-C Work Phone: [facility] Start: 03-25-2011 End: 03-25-2011 Patient encounter procedure Yvette Abreu PA-C Work Phone: [email or web address]. Start: 12-18-2010 End: 12-18-2010 Medication Yvette Abreu PA-C Work Phone: [email or web address]. Start: 12-18-2010 End: 12-18-2010 Historical Summary Yvette Abreu PA-C Work Phone: [facility] Start: 10-14-2010 End: 10-14-2010 Patient encounter procedure Yvette Abreu PA-C Work Phone: [facility] Start: 07-28-2010 End: 07-28-2010 Medication Yvette Abreu PA-C Work Phone: [facility] Start: 06-13-2010 End: 06-13-2010 Medication Yvette Abreu PA-C Work Phone: [facility] Start: 05-12-2010 End: 05-12-2010 Medication Yvette Abreu PA-C Work Phone: [facility] Start: 04-07-2010 End: 04-07-2010 Patient encounter procedure Yvette Abreu PA-C Work Phone: [facility] Start: 03-03-2010 End: 03-03-2010 Medication Yvette Abreu PA-C Work Phone: [facility] Start: 01-31-2010 End: 01-31-2010 Medication Yvette Abreu PA-C Work Phone: [email or web address]. Start: 12-30-2009 End: 12-30-2009 Medication Yvette Abreu PA-C Work Phone: [facility] Procedures Date Procedure Procedure Detail Performing Clinician Start: 02-02-2025 Antibody screen JUAN PROCTOR Comment on above: Order Comment: Speci men Type: BLOOD SPECIMEN Ordering Facility: [facility] Address: [address] [place] [address] Performed By: #### T SPN #### [facility] CLIA [id number] [address] [place] [address] Start: 11-06-2024 Antibody screen JUAN PROCTOR Comment on above: Order Comment: Speci men Type: BLOOD SPECIMEN Ordering Facility: [facility] Address: [address] [place] [address] Performed By: #### T SPN #### [facility] CLIA [id number] [address] [place] [address] [id number] [place] Start: 11-06-2024 Us preg uterus after 1st trimest 1/1st gestation Davida [place] [employer] Work Phone: Start: 10-10-2024 Us preg uterus after 1st trimest 1/1st gestation Davida [place] [employer] Work Phone: Start: 09-26-2024 Us uterus limited 1/> fetuses Davida [place] [employer] Work Phone: Start: 09-26-2024 Adult depression screening assessment Amelia Mendoza [employer].CNM Work Phone: Start: 09-23-2023 End: 09-23-2023 Ketorolac tromethamine inj Arya Addison PA-C Work Phone: Start: 07-07-2021 End: 07-15-2021 Mri any jt upper extremity w/o contrast matrl Yvette Abreu PA-C Work Phone: Start: 05-28-2021 End: 05-30-2021 Radex shoulder complete minimum 2 views Yvette Abreu PA-C Work Phone: Start: 08-02-2020 PT ED PATIENT INFORMATION Luis Mancilla Work Phone: Start: 07-24-2020 End: 07-30-2020 Us abdominal real time w/image limited Sandra Gandhi PA-C Work Phone: Start: 07-24-2020 End: 07-24-2020 Body mass index documented Sandra Gandhi PA-C Work Phone: Start: 07-11-2020 End: 07-11-2020 Cholecystectomy Sandra Mitchell RN Comment on above: [facility] Start: 01-03-2018 End: 01-03-2018 Body mass index documented Sandraphil Gandhi PA-C Work Phone: Start: 08-31-2017 End: 08-31-2017 Body mass index documented Sandra Serrano Oksana PA-C Work Phone: Start: 08-10-2017 End: 08-10-2017 Body mass index documented Sandra Serrano Oksana PA-C Work Phone: Start: 02-12-2014 End: 02-14-2014 Radiologic exam knee complete 4/more views Nery [facility] Work Phone: Comment on above: Pain and enlargement of tibial tubercle. Amlin-schlatter's disease? Start: 06-15-2013 End: 06-15-2013 Screening test visual acuity quantitative bilat Nery SUERO-C Work Phone: Start: 11-11-2012 End: 11-11-2012 Lab findings surveillance Shannon Cowan CMA Comment on above: 84 Start: 04-12-2006 End: 04-12-2006 Right ankle surgery Sandra Mitchell RN History of cholecystectomy Hx laparoscopic cholecystectomy Plan of Treatment Date Care Activity Detail Author Start: 05-11-2027 Screening for malign ant neoplasm of cervix Cervical Cancer Screening [facility] Start: 09-26-2025 Anxiety Screening Anxiety Screening [facility] Start: 09-26-2025 Depression Screening Depression Scre [facility] Start: 05-11-2025 End: 05-11-2025 Patient encounter procedure 05/11/2025 7:00 AM EST Office Visit OB/Gynecology [address] [place] [address] Davida Fishman APRN.[employer] [address] [place] [address] ANNUAL OB/Gynecology Comment on above: ANNUAL Start: 03-24-2025 RSV Vaccine (1 - Ris k 1-dose series) RSV Vaccine (1 - Risk 1-dose series) [facility] Start: 01-01-2025 End: 01-01-2025 Patient encounter procedure [facility] Comment on above: Anatomy Anatomy/OB Start: 12-11-2024 Influenza vaccination [facility] Start: 12-04-2024 End: 12-04-2024 Patient encounter procedure 12/04/2024 7:00 AM EDT Routine Office Visit OB/Gynecology [address] [place] [address] Yossi Alatorre, [employer] [address] [place] [address] OB OB/Gynecology Comment on above: OB Start: 11-06-2024 End: 02-05-2025 Chromosome 21 trisomy [Presence] in Blood or Tissue by Cytogenetics [facility] Work Phone: Comment on above: Expected: 11/06/2024 , Expires: 02/05/2025 Start: 11-06-2024 End: 11-06-2025 OBSTETRIC ULTRASOUND WHI OBSTETRIC ULTRASOUND WHI Anc Imaging Routine 12 weeks gestation of (HCC) Umbilical cord cyst during , antepartum (HCC) Supervision of high risk , antepartum (HCC) Class 3 severe obesity without serious comorbidity with body mass index (BMI) of 40.0 to 44.9 in adult, unspecified obesity type (HCC) Expected: 11/06/2024, Expires: 11/06/2025 [facility] Comment on above: Expected: 11/06/2024 , Expires: 11/06/2025 Start: 11-06-2024 End: 11-06-2024 Patient encounter procedure Maternal Medicine Comment on above: Nuchal OB Start: 10-10-2024 End: 10-10-2024 Patient encounter procedure [facility]aternal [facility] Comment on above: 6 weeks gestation of (HCC) [Z3A.01] Dating Start: 09-26-2024 End: 12-26-2024 ANEMIA REFLEX PANEL ANEMIA REFLEX PANEL Lab Routine Uncertain dates, antepartum, unspecified trimester (HCC) Expected: 09/26/2024, Expires: 12/26/2024 [facility] Work Phone: Comment on above: Expected: 09/26/2024 , Expires: 12/26/2024 Start: 09-26-2024 End: 12-26-2024 Hemoglobin A1c in Blood HEMOGLOBIN A1C Lab Routine Uncertain dates, antepartum, unspecified trimester (HCC) Expected: 09/26/2024, Expires: 12/26/2024 [facility] Comment on above: Expected: 09/26/2024 , Expires: 12/26/2024 Start: 09-26-2024 End: 12-26-2024 Hepatitis B virus surface Ag [Presence] in Serum HEPATITIS B SURFACE ANTIGEN Lab Routine Uncertain dates, antepartum, unspecified trimester (HCC) Expected: 09/26/2024, Expires: 12/26/2024 [facility] Comment on above: Expected: 09/26/2024 , Expires: 12/26/2024 Start: 09-26-2024 End: 12-26-2024 Hepatitis C virus Ab [Presence] in Serum HEPATITIS C ANTIBODY IA WITH CONFIRMATION Lab Routine Uncertain dates, antepartum, unspecified trimester (HCC) Expected: 09/26/2024, Expires: 12/26/2024 [facility] Comment on above: Expected: 09/26/2024 , Expires: 12/26/2024 Start: 09-26-2024 End: 12-26-2024 HIV 1+2 Ab [Presence] in Serum or Plasma by Immunoassay HIV 1/2 COMBO WITH REFLEX TO DIFFERENTIATION Lab Routine Uncertain dates, antepartum, unspecified trimester (HCC) Expected: 09/26/2024, Expires: 12/26/2024 [facility] Comment on above: Expected: 09/26/2024 , Expires: 12/26/2024 Start: 09-26-2024 End: 09-26-2025 OBSTETRIC ULTRASOUND WHI OBSTETRIC ULTRASOUND WHI Anc Imaging Routine 6 weeks gestation of (HCC) Expected: 09/26/2024, Expires: 09/26/2025 [facility] Comment on above: Expected: 09/26/2024 , Expires: 09/26/2025 Start: 09-26-2024 End: 12-26-2024 RUBELLA IGG ANTIBODY RUBELLA IGG ANTIBODY Lab Routine Uncertain dates, antepartum, unspecified trimester (HCC) Expected: 09/26/2024, Expires: 12/26/2024 [facility] Comment on above: Expected: 09/26/2024 , Expires: 12/26/2024 Start: 09-26-2024 End: 12-26-2024 SYPHILIS TREPONEMAL W/REFLEX SYPHILIS TREPONEMAL W/REFLEX Lab Routine Uncertain dates, antepartum, unspecified trimester (HCC) Expected: 09/26/2024, Expires: 12/26/2024 [facility] Comment on above: Expected: 09/26/2024 , Expires: 12/26/2024 Start: 09-26-2024 End: 12-26-2024 TYPE + SCREEN TYPE + SCREEN Blood Bank Routine Uncertain dates, antepartum, unspecified trimester (HCC) Expected: 09/26/2024, Expires: 12/26/2024 [facility] Comment on above: Expected: 09/26/2024 , Expires: 12/26/2024 Start: 09-26-2024 End: 09-26-2024 Patient encounter procedure 09/26/2024 8:15 AM EDT Initial Office Visit OB/Gynecology [address] [place], [place] [id number] Davida Fishman APRN.[employer] [address] [place] [address] LMP 08/01 OB/Gynecology Comment on above: LMP 08/01 Start: 12-12-2023 Covid-19 Vaccine ( season) Covid-19 Vaccine ( season) [facility] Start: 12-12-2023 Influenza vaccination Influenza Vacc ine (#1) [facility] Start: 2021 Screening for malign ant neoplasm of cervix Cervical Cancer Screening [facility] Start: 12-11-2020 Influenza vaccination INFLUENZA (Sea son Ended) [facility] Start: 2019 Hepatitis B Vaccine (1 of 3 - 19+ 3-dose series) Hepatitis B Vaccine (1 of 3 - 19+ 3-dose series) [facility] Start: 2019 Urine microalbumin profile [facility] Start: 2018 Anxiety Screening Anxiety Screening [facility] Start: 2018 CHLAMYDIA SCREENING (18-24) CHLAMYDIA SCREENING (18-24) [facility] Start: 2018 Depression Screening Depression Scre ening [facility] Start: 2018 GC (GONORRHEA) SCREENING (18-24) GC (GONORRHEA) SCREENING (18-24) [facility] Start: 2018 HEPATITIS C SCREENING HEPATITIS C [facility] Start: 2018 Hepatitis C screening Hepatitis C [facility] Start: 2018 HIV SCREENING HIV SCREENING [facility] Start: 2018 HIV screening HIV Screening [facility] Start: 2018 Screening for Chlamy brady trachomatis Chlamydia Screening (18-24) [facility] Start: 2016 Meningococcal B Vaccine: Consider Based On Risk (1 of 2 - Patient Seeks Protection) Meningococcal B Vaccine: Consider Based On Risk (1 of 2 - Patient Seeks Protection) [facility] Start: 2015 HPV Vaccine (1 - 3-d ose series) HPV Vaccine (1 - 3-dose series) [facility] Start: 2014 Peds To Adult Transition Annual Assessment Peds To Adult Transition Annual Assessment [facility] Start: 2012 Adult depression screening assessment DEPRESSION SCREENING [facility] Start: 2012 Peds To Adult Transition Initial Discussion Peds To Adult Transition Initial Discussion [facility] Start: 2011 HPV VACCINE (1 - 2-d ose series) HPV VACCINE (1 - 2-dose series) [facility] Bacteria identified in Urine by Culture BACTERIAL CULTURE, URINE Microbiology Routine Uncertain dates, antepartum, unspecified trimester ([facility]) 09/26/2024 8:56 AM EDT [facility] Chlamydia trachomatis+Neisseria gonorrhoeae DNA [Presence] in Unspecified specimen by ADELA with probe detection GONORRHEA/CHLAMYDIA NAAT Lab Routine Uncertain dates, antepartum, unspecified trimester ([facility]) 09/26/2024 8:56 AM EDT [facility] PAP TEST PAP TEST Lab Rou jovana Encounter for gynecological examination (general) (routine) without abnormal findings Screening for cervical cancer 05/11/2024 8:30 AM EST [facility] Work Phone: PT ED PATIENT INFORMATION PT ED PATIENT INFORMATION Other 08/02/2020 [facility] TRICHOMONAS VAGINALI S NAAT TRICHOMONAS VAGINALIS NAAT Lab Routine Screen for STD (sexually transmitted disease) 09/26/2024 8:56 AM EDT [facility] Immunizations Immunization Date Immunization Notes Care Provider Pauly jones 11-21-2017 meningococcal polysaccharide vaccine (MPSV4) Yvette Abreu PA-C Work Phone: [facility] 11-21-2017 influenza virus vaccine, unspecified formulation Davida Fishman APRN.CNP Work Phone: [facility] 11-02-2012 tetanus toxoid, redu daniel diphtheria toxoid, and acellular pertussis vaccine, adsorbed Yvette Abreu PA-C Work Phone: [facility]; [employer] [facility] [employer]. Comment on above: Site: Anterolateral Thigh (Right)VIS Given: * Tetanus/Diphtheria/(Pertussis) (Td/Tdap) (02/28/08) * Tetanus/Diptheria/Pertussis (Tdap/Td) 05/05/11 10-28-2005 diphtheria, tetanus toxoids and acellular pertussis vaccine, 5 pertussis antigens Yvette Abreu PA-C Work Phone: [facility]; [facility] 10-28-2005 measles, mumps and rubella virus vaccine Yvette Abreu PA-C Work Phone: [employer]; [employer] [facility] 10-28-2005 poliovirus vaccine, inactivated Yvette Abreu PA-C Work Phone: [employer]; [employer] 01-02-2002 diphtheria, tetanus toxoids and acellular pertussis vaccine, 5 pertussis antigens Yvette Abreu PA-C Work Phone: [employer]; [facility] 01-02-2002 poliovirus vaccine, inactivated Yvette Abreu PA-C Work Phone: [facility] 09-28-2001 haemophilus influenz ae type b vaccine, PRP-T conjugate Yvette Abreu PA-C Work Phone: [facility].; [facility] 09-28-2001 hepatitis B vaccine, pediatric or pediatric/adolescent dosage Yvette Abreu PA-C Work Phone: [facility].; [facility] 07-01-2001 measles, mumps and rubella virus vaccine Yvette Abreu PA-C Work Phone: [facility].; [facility] 2000 diphtheria, tetanus toxoids and acellular pertussis vaccine, 5 pertussis antigens Yvette Abreu PA-C Work Phone: [facility].; [facility] 2000 diphtheria, tetanus toxoids and acellular pertussis vaccine, 5 pertussis antigens Yvette Abreu PA-C Work Phone: [facility].; [facility] 2000 haemophilus influenz ae type b vaccine, PRP-T conjugate Yvette Abreu PA-C Work Phone: [facility].; [facility] 2000 poliovirus vaccine, inactivated Yvette Abreu PA-C Work Phone: [facility].; [facility] 2000 diphtheria, tetanus toxoids and acellular pertussis vaccine, 5 pertussis antigens Yvette Abreu PA-C Work Phone: [facility].; [facility] 2000 haemophilus influenz ae type b vaccine, PRP-T conjugate Yvette Abreu PA-C Work Phone: [facility].; [facility] 2000 hepatitis B vaccine, pediatric or pediatric/adolescent dosage Yvette Abreu PA-C Work Phone: [facility].; [facility] 2000 poliovirus vaccine, inactivated Yvette Abreu PA-C Work Phone: [facility].; [place] [employer] [facility] 2000 hepatitis B vaccine, pediatric or pediatric/adolescent dosage Yvette Abreu PA-C Work Phone: [employer] [facility].; [place] [employer] [facility]. NEGATED: Highlighted row has not occurred! varicella virus vaccine Yvette Abreu P A-C Work Phone: [facility].; [facility]. Comment on above: History of disease. Payers Date Payer Category Payer [employer] [employer] [facility] [id number] 2024 Unknown 2024 Unknown [id number] 2020 Unknown [employer]ST[employer] ACCE PPO [id number] 2020-Present PPO [id number] 2000 Unknown [id number] 2000 Unknown [id number] 2000 Unknown [id number] Private Health Insurance [id number] Self-pay R [place] [id number] Unknown [id number] Unknown R [place] [id number] Unknown UMR [place]Y [id number] Social History Date Type Detail Facility [facility] ever [facility] Start: 2000 Sex Assigned At Not on file [facility] Exposure to SARS-CoV -2 (event) Not sure [facility] Start: 08-01-2020 [facility] if ever smoked [facility] Work Phone: Start: 08-01-2020 None [facility] Work Phone: Start: 08-01-2020 Spouse/ Signif icant Other [facility] Work Phone: Start: 2000 Sex Assigned At Female W [facility] Work Phone: Start: 05-11-2024 End: 09-26-2024 Parents Parents [facility]; [facility] Start: 05-11-2024 [facility] Never smoked tobacco [facility] Start: 05-11-2024 Tobacco use and exposure Smokeless tobacco non-user [facility] Start: 05-11-2024 End: 12-04-2024 Alcoholic beverage intake Ex-drinker (finding) [facility] Start: 05-11-2024 End: 09-26-2024 Tobacco use panel [facility] Start: 03-13-2012 Adult Depression Screening Assessment 0 [facility] Start: 08-26-2024 [facility] Medical Equipment Procedure Code Equipment Code Equipment Original Text Equipment Identifier Dates Total cholecystectomy with exploration of common bile duct CLIP,HEMOLOCK MED WECK FDA Start: 08-02-2020 Total cholecystectomy with exploration of common bile duct CLIP,HEMOLOCK MED WECK FDA Start: 08-02-2020 Clinical Notes 05-11-2024 to 02-02-2025 Quick Notes - Yossi Alatorre APRN.[employer] - 12/04/2024 7:08 AM EDTPrenatal Quick Notes - Yossi Alatorre APRN.[employer] - 12/04/2024 7:08 AM EDTPatient InstructionsPatient Instructions Note Date & Type Note Facility 02-02-2025 Note HNO ID: [id number] Author: DEYSI SULLIVAN RN Service: ? Author Type: Registered Nurse Type: Progress Notes Filed: 02/06/2025 10:16 Note Text: The patient is here for an injection of Rhogam. Dose: 300 mcg Amount wasted: none. Route: Intramuscular Site: right upper quadrant gluteus Handle Assembler: CSL [employer]ring Lot #: [id number] Expiration Date: 07/21/[address] [facility] 12-04-2024 Progress note Formatting of t his note might be different from the original. EH - S: Sena is a 24 year old female who presents at 16w2d for a routine visit. Denies headache, visual changes, chest pain, shortness of breath, vaginal bleeding, leakage of fluid, or dysuria. Feeling fatigued and notes some intermittent umbilical pain. O: See flow sheet Gen: No apparent distress Abd: Gravid, nontender, ASSESSMENT/PLAN: 1. Supervision of high risk , antepartum ([facility]) - ICD9: V23.9, ICD10: O09.90 (primary diagnosis) - Continue LDA and PNV 2. 16 weeks gestation of ([facility]) - ICD9: V22.2, ICD10: Z3A.16 - Anatomy ultrasound next visit - No signs of acute abdomen with exam. Discussed pain may be related to uterus stretching. To go to ER with persistent abdominal pain, fever, chills, nausea/vomiting. 3. Rh negative state in antepartum period ([facility]) - ICD9: 646.83, ICD10: O26.899, Z67.91 - Plan for Rhogam at 28 weeks 4. Obesity affecting in second trimester, unspecified obesity type ([facility]) - ICD9: 649.13, ICD10: O99.212 - Pre BMI 43 - Plan for growth and then weekly NSTs starting at 32 weeks. PTL precautions reviewed. RTO in 4 weeks or sooner as needed. Yossi Alatorre APRN.MED[employer]OB TITLES [facility] 12-04-2024 Miscellaneous Notes EH - S: Sena is a 24 year old female who presents at 16w2d for a routine visit. Denies headache, visual changes, chest pain, shortness of breath, vaginal bleeding, leakage of fluid, or dysuria. Feeling fatigued and notes some intermittent umbilical pain. O: See flow sheet Gen: No apparent distress Abd: Gravid, nontender, ASSESSMENT/PLAN: 1. Supervision of high risk , antepartum (FORMERLY [facility]) - ICD9: V23.9, ICD10: O09.90 (primary diagnosis) - Continue LDA and PNV 2. 16 weeks gestation of ([facility] - ICD9: V22.2, ICD10: Z3A.16 - Anatomy ultrasound next visit - No signs of acute abdomen with exam. Discussed pain may be related to uterus stretching. To go to ER with persistent abdominal pain, fever, chills, nausea/vomiting. 3. Rh negative state in antepartum period ([facility] - ICD9: 646.83, ICD10: O26.899, Z67.91 - Plan for Rhogam at 28 weeks 4. Obesity affecting in second trimester, unspecified obesity type ([facility]) - ICD9: 649.13, ICD10: O99.212 - Pre BMI 43 - Plan for growth and then weekly NSTs starting at 32 weeks. PTL precautions reviewed. RTO in 4 weeks or sooner as needed. Yossi Alatorre APRN.ZOE documented in this encounter [facility] 12-04-2024 Lynn Polk LPN - 12/04/2024 6:58 AM EDT SEQUENTIAL SCREENINGS The [facility] offers sequential screenings for women who are interested in screenings for chromosomal abnormalities and certain defects during a . The sequential screen combines ultrasound and blood tests to determine the risk of chromosomal abnormalities, including Down's Syndrome (Trisomy 21) and Trisomy 18, as well as open neural tube defects including spina bifida. Ultrasound examination is performed between 11 weeks and 13 weeks gestational age. Blood tests are drawn after the ultrasound and again later in the between 15 and 21 weeks gestational age. Please let your physician know if you are interested in this testing. It will require an appointment with our graphics edit technician. This is not an ultrasound performed by a physician in our office during a routine visit. SIGNS AND SYMPTOMS OF LABOR 1. Contractions every 10 minutes or more often 2. Clear, pink, or brownish fluid (water) leaking from vagina 3. Feeling that baby is pushing down, pressure 4. Low, dull backache 5. Cramps that feel like a period 6. Cramps with or without diarrhea If you notice any of the above symptoms, contact our office at [phone] and ask to speak with a nurse. After hours, you can call doctors registry at [phone] OR call [facility] at [phone] and ask to have the doctor aviation engineer paged. If you consider this an emergency, dial [phone] or go to your nearest emergency department. NEED HELP? Are you dealing with a violent or abusive relationship? Are you a victim of rape or sexual assult? Call [facility] ([place]) 24 hour Crisis Hotline: 119.550.1570 or 355-449-6822. MANUAL Your Guide to a Healthy manual is now on-line. Visit [email or web address] to download your free copy documented in this encounter [facility] 11-06-2024 Progress note Formatting of t his note might be different from the original. S: Sena Hartman is a 24 year old female who presents at 05/19/2025, by Ultrasound for a routine visit. Denies headache, visual changes, chest pain, shortness of breath, vaginal bleeding, leakage of fluid, or dysuria. Feeling well, no complaints. O: See flow sheet Gen: No apparent distress NT today. Umbilical cords cyst on previous US awaiting results today Lifting restriction for work. Desires NIPT ASSESSMENT/PLAN: 1. 12 weeks gestation of (HCC) - ICD9: V22.2, ICD10: Z3A.12 (primary diagnosis) - [id number] PLUS - OBSTETRIC ULTRASOUND WHI 2. Umbilical cord cyst during , antepartum (HCC) - ICD9: 656.80, ICD10: O36.8990 - OBSTETRIC ULTRASOUND WHI 3. Supervision of high risk , antepartum (HCC) - ICD9: V23.9, ICD10: O09.90 - OBSTETRIC ULTRASOUND WHI 4. Class 3 severe obesity without serious comorbidity with body mass index (BMI) of 40.0 to 44.9 in adult, unspecified obesity type (HCC) - ICD9: 278.01, V85.41, ICD10: E66.813, Z68.41 NSTs weekly at 32 weeks Growth q 4 - OBSTETRIC ULTRASOUND WHI Brigitte Proctor MD [facility] 11-06-2024 Miscellaneous Notes S: Sena Hartman is a 24 year old female who presents at 05/19/2025, by Ultrasound for a routine visit. Denies headache, visual changes, chest pain, shortness of breath, vaginal bleeding, leakage of fluid, or dysuria. Feeling well, no complaints. O: See flow sheet Gen: No apparent distress NT today. Umbilical cords cyst on previous US awaiting results today Lifting restriction for work. Desires NIPT ASSESSMENT/PLAN: 1. 12 weeks gestation of (HCC) - ICD9: V22.2, ICD10: Z3A.12 (primary diagnosis) - [id number] PLUS - OBSTETRIC ULTRASOUND WHI 2. Umbilical cord cyst during , antepartum (HCC) - ICD9: 656.80, ICD10: O36.8990 - OBSTETRIC ULTRASOUND WHI 3. Supervision of high risk , antepartum (HCC) - ICD9: V23.9, ICD10: O09.90 - OBSTETRIC ULTRASOUND WHI 4. Class 3 severe obesity without serious comorbidity with body mass index (BMI) of 40.0 to 44.9 in adult, unspecified obesity type (HCC) - ICD9: 278.01, V85.41, ICD10: E66.813, Z68.41 NSTs weekly at 32 weeks Growth q 4 - OBSTETRIC ULTRASOUND WHI Brigitte Proctor MD documented in this encounter [facility] 10-10-2024 Telephone encounter Note Noted & agree. Karmon Olvin, MD [facility] Work Phone: 10-10-2024 Miscellaneous Notes Noted & agree. Ashley Boyd MD Ob patient is 8w3d and called stating that she fell on her knees and elbows in the mud. No direct hit on her abdomen. Patient denies cramping. No spotting or vaginal bleeding. Reassurance given to patient and told to monitor and to call if bleeding or cramping documented in this encounter [facility] 10-10-2024 Telephone encounter Note Ob patient is 8w3d and called stating that she fell on her knees and elbows in the mud. No direct hit on her abdomen. Patient denies cramping. No spotting or vaginal bleeding. Reassurance given to patient and told to monitor and to call if bleeding or cramping [facility] 10-09-2024 Telephone encounter Note Opened to send patient a Mychart message, patient is not enrolled in Mychart. Closing encounter. Poli Anders MA [facility] 10-09-2024 Miscellaneous Notes Opened to send patient a Mychart message, patient is not enrolled in Mychart. Closing encounter. Poli Anders MA documented in this encounter [facility] 09-27-2024 Telephone encounter Note Patient notified [facility] 09-27-2024 Miscellaneous Notes Patient notified Left message for patient to call office. Needed to move her US appointment to 1PM on 10/10 with Mattie (was originally at 11:00AM with Deysi) because patient is less than 12 weeks and was put on wrong schedule. Brigitte Latham RN documented in this encounter [facility] 09-27-2024 Telephone encounter Note Left message for patient to call office. Needed to move her US appointment to 1PM on 10/10 with Mattie (was originally at 11:00AM with Deysi) because patient is less than 12 weeks and was put on wrong schedule. Brigitte Latham, ANA [facility] 09-26-2024 Instructions Aide Rene LPN - 09/26/2024 8:03 AM EDT Please select the following link to access the [facility] Your Guide to a Healthy . [email or web address] documented in this encounter [facility] 09-26-2024 Note HNO ID: [id number] Author: DAVIDA FISHMAN APRN.ZOE Service: ? 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 INITIAL OB ASSESSMENT HPI: Sena is a 24 year old White here to establish Obstetrical Care. Patient's last menstrual period was 08/01/2024 (exact date). from OB Dating Form. was planned Complaints: No OB History Gravida1 Para0 Term0 Preterm0 AB0 Living0 SAB0 IAB0 Ectopic0 Multiple0 Live Births0 Previous history: Prior : never History of 4th degree laceration: No History of shoulder dystocia: No History of Hypertensive disorders including pre-eclampsia or gestational hypertension: No History of gestational diabetes: No Patient's Risk Screening for delivery: Have you had a prior gonzalez between 20w and 36w6d? No How many pregnancies have you had before? 0 Did you have a previous baby with a GBS Infection? No Please select all that apply for any prior : N/A MEDICAL/PSYCHOSOCIAL HISTORY: History of hemorrhage or bleeding concerns: No Thyroid Disease: No History of chronic hypertension: No History of pre-existing diabetes: No No results found for: ABORHD BMI 43.19 kg/(m2) Last Pap: 05/11/2024 normal History of abnormal pap: No Prior treatment for cervical dysplasia: none. Last HPV: History of STDs: None Partner History of STDs: None Did you have a partner with Herpes? No Tobacco use: No E-Cigarette/Vaping Use: No Caffeine use: Yes Drug use: No Alcohol use: No Multivitamin with Folic acid: Yes Would refuse blood transfusion if medically necessary: No Social Needs: How often does this describe you? I don't have enough money to pay my bills: Never Within the past 12 months, have you worried that your food would run out before you had money to buy more? Never In the past 12 months, has lack of reliable transportation kept you from going to medical appointments or work, or from getting things needed for daily living? Never In the past 12 months, have you had any concerns about having a place to live, or about the condition or quality of your housing? Never Would you like more information on any of the following (please check all that apply)? Centering (group care classes) Social History: Do you have any history of depression, anxiety, PTSD, or other mood problems? No Do you have a history of abuse or trauma that may impact your experience? No Are you currently employed? Yes Depression/Anxiety Screening: denies symptoms of depression. OB Depression and Anxiety Screening- This Encounter Feeling down, depressed, or hopeless: Not at all Little interest or pleasure in doing things: Not at all Feeling nervous, anxious, or on edge Several days Not being able to stop or control worrying Not at all Anxiety Pre-Screening Total (If >/= 3 additional questions will be reviewed) 1 Genetic Screening: Partner present: Yes Patient verbalized knowledge of partner family health history: Yes Do you or your partner have any personal or family history of defects not previously discussed: No Do you have history of a complicated by anomaly, genetic condition, or demise: No Preeclampsia Risk Screening: Screening for prevention of preeclampsia: High risk factors: None Moderate risk ractors: Nulliparity and Obesity (body mass index greater than 30) OB Risk Screening: Completed, no positive findings documented. Marital Status: Partner: Name: Nell Age: 26 Occupation: [employer] Gender: Male PAST MEDICAL HISTORY Diagnosis Date NEGATIVE MEDICAL HISTORY PAST SURGICAL HISTORY Procedure Laterality Date REMOVAL GALLBLADDER 2020 Current Outpatient Medications Medication Sig Dispense Refill aspirin, enteric coated (ECOTRIN LOW STRENGTH) 81 mg EC tablet Take 1 tablet by mouth once daily. 90 tablet 3 no115/iron/folic acid ( 19 ORAL) Take 1 tablet by mouth once daily. Cholecalciferol, Vitamin D3, (VITAMIN D) 25 mcg (1,000 unit) cap Take 1,000 Units by mouth once daily. Magnesium 250 mg tab Take 250 mg by mouth once daily. No current facility-administered medications for this visit. Allergies As of Date: 09/26/2024 Allergen Noted Reaction SULFA (SULFONAMIDE ANTIBIOTICS) 06/15/2015 Hives Fully Assessed 09/26/2024 Does patient have penicillin allergy: No REVIEW OF SYSTEMS: GENERAL: Negative for: Fever or Chills HEENT: Negative for: Headache, Impaired Vision, Ringing in Ears, Nosebleeds NECK: Negative for: Swelling, Pain, Stiffness RESPIRATORY: Negative for: Cough, Shortness of breath, Wheezing GASTROINTESTINAL: Negative for: Heartburn, Diarrhea, Blood in stool, Vomiting, Positive for: Constipation, and Positive for: Nausea and Vomiting x 1 episode MUSCULOSKELETAL: Negative for: (more content not included)... 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 INITIAL OB ASSESSMENT HPI: Sena is a 24 year old White here to establish Obstetrical Care. Patient's last menstrual period was 08/01/2024 (exact date). from OB Dating Form. was planned Complaints: No OB History Gravida1 Para0 Term0 Preterm0 AB0 Living0 SAB0 IAB0 Ectopic0 Multiple0 Live Births0 Previous history: Prior : never History of 4th degree laceration: No History of shoulder dystocia: No History of Hypertensive disorders including pre-eclampsia or gestational hypertension: No History of gestational diabetes: No Patient's Risk Screening for delivery: Have you had a prior gonzalez between 20w and 36w6d? No How many pregnancies have you had before? 0 Did you have a previous baby with a GBS Infection? No Please select all that apply for any prior : N/A MEDICAL/PSYCHOSOCIAL HISTORY: History of hemorrhage or bleeding concerns: No Thyroid Disease: No History of chronic hypertension: No History of pre-existing diabetes: No No results found for: ABORHD BMI 43.19 kg/(m^2) Last Pap: 05/11/2024 normal History of abnormal pap: No Prior treatment for cervical dysplasia: none. Last HPV: History of STDs: None Partner History of STDs: None Did you have a partner with Herpes? No Tobacco use: No E-Cigarette/Vaping Use: No Caffeine use: Yes Drug use: No Alcohol use: No Multivitamin with Folic acid: Yes Would refuse blood transfusion if medically necessary: No Social Needs: How often does this describe you? I don't have enough money to pay my bills: Never Within the past 12 months, have you worried that your food would run out before you had money to buy more? Never In the past 12 months, has lack of reliable transportation kept you from going to medical appointments or work, or from getting things needed for daily living? Never In the past 12 months, have you had any concerns about having a place to live, or about the condition or quality of your housing? Never Would you like more information on any of the following (please check all that apply)? Centering (group care classes) Social History: Do you have any history of depression, anxiety, PTSD, or other mood problems? No Do you have a history of abuse or trauma that may impact your experience? No Are you currently employed? Yes Depression/Anxiety Screening: denies symptoms of depression. OB Depression and Anxiety Screening- This Encounter Feeling down, depressed, or hopeless: Not at all Little interest or pleasure in doing things: Not at all Feeling nervous, anxious, or on edge Several days Not being able to stop or control worrying Not at all Anxiety Pre-Screening Total (If >/= 3 additional questions will be reviewed) 1 Genetic Screening: Partner present: Yes Patient verbalized knowledge of partner family health history: Yes Do you or your partner have any personal or family history of defects not previously discussed: No Do you have history of a complicated by anomaly, genetic condition, or demise: No Preeclampsia Risk Screening: Screening for prevention of preeclampsia: High risk factors: None Moderate risk ractors: Nulliparity and Obesity (body mass index greater than 30) OB Risk Screening: Completed, no positive findings documented. Marital Status: Partner: Name: Nell Age: 26 Occupation: [employer] Gender: Male PAST MEDICAL HISTORY Diagnosis Date NEGATIVE MEDICAL HISTORY PAST SURGICAL HISTORY Procedure Laterality Date REMOVAL GALLBLADDER 2020 Current Outpatient Medications Medication Sig Dispense Refill aspirin, enteric coated (ECOTRIN LOW STRENGTH) 81 mg EC tablet Take 1 tablet by mouth once daily. 90 tablet 3 no115/iron/folic acid ( 19 ORAL) Take 1 tablet by mouth once daily. Cholecalciferol, Vitamin D3, (VITAMIN D) 25 mcg (1,000 unit) cap Take 1,000 Units by mouth once daily. Magnesium 250 mg tab Take 250 mg by mouth once daily. No current facility-administered medications for this visit. Allergies As of Date: 09/26/2024 Allergen Noted Reaction SULFA (SULFONAMIDE ANTIBIOTICS) 06/15/2015 Hives Fully Assessed 09/26/2024 Does patient have penicillin allergy: No REVIEW OF SYSTEMS: GENERAL: Negative for: Fever or Chills HEENT: Negative for: Headache, Impaired Vision, Ringing in Ears, Nosebleeds NECK: Negative for: Swelling, Pain, Stiffness RESPIRATORY: Negative for: Cough, Shortness of breath, Wheezing GASTROINTESTINAL: Negative for: Heartburn, Diarrhea, Blood in stool, Vomiting, Positive for: Constipation, and Positive for: Nausea and Vomiting x 1 episode MUSCULOSKELETAL: Negative for: Muscle or joint pain, stiffness, Joint swelling NEUROLOGIC/PSYCHIATRIC: Negative for: Weakness, Paralysis, Numbness, Tingling, Tremor, Anxiety, Depression, Memory loss SKIN: Negative for: Rash, Itching GENITOURINARY: Negative for: vaginal itching, vaginal discharge, hematuria or dysuria SENSITIVE EXAM: The sensitive examination was discussed with the Patient or Patient's Authorized Manager Customer Service. As applicable, any other physician, advance practice provider, medical student, or other health professional student that will be observing or involved in the sensitive examination for educational or training purposes was discussed with the Patient or Authorized Manager Customer Service. The Patient or Authorized Manager Customer Service has agreed to proceed with the sensitive examination. (Sensitive examination includes inspection and/or palpation of the breasts, pelvis, prostate and anorectal regions). PHYSICAL EXAM: BP 126/78 Ht 5' 4 (1.63m) Wt 251 lb 9.6 oz (114.1kg) LMP 08/01/2024 BMI 43.17 kg/(m^2). GENERAL: pleasant in no apparent distress DERMATOLOGY: Normal, without lesions, non-icteric, and non-hirsute NECK: Supple, full range of motion, no adenopathy, and thyroid normal CHEST: Normal inspiratory effort BREAST: soft, non-tender, symmetric, no dominant mass, normal nipple-areolar complex, no lymphadenopathy, and no nipple discharge ABDOMEN: soft, non-tender, and no masses NEURO: alert and oriented x3,exam grossly non-focal PELVIS: External genitalia normal without lesions. Perineal body intact. No vaginal or cervical lesions. Cervix closed. No adnexal masses or tenderness. Clinical Pelvimetry: Pelvimetry clinically assessed as adequate Limited OB ultrasound exam: single intrauterine and POCUS performed. +cardiac activity, CRL NOT consistent with LMP. Davida Fishman, LAMINATED PLASTICS ASSEMBLER AND GLUER.MEDIA JOB TITLES ASSESSMENT: 24 year old at 6w3d wks gestational age PLAN: 1) Patient oriented to practice. Patient given new OB orientation folder. Discussed nutrition, folic acid supplementation, dietary guidelines, exercise, smoking, alcohol, caffeine, and drug use. Discussed gestational weight gain guidelines. Discussed routine OB labs including STD/HIV. Discussed how to access Your guide to a health and the Engineering Technical Specialist. Reviewed midwifery and caddie services that are available. 2) Screening: Hemoglobin A1C: ordered Baby Aspirin: The patient has been counseled about the potential benefits of low dose aspirin in and our recommendation that this be offered to all patients, regardless of whether they meet the high risk criteria specified above. She Accepts Aneuploidy Screening: Discussed aneuploidy screening, nuchal translucency/first trimester early anatomy ultrasound and NIPT. The risks/benefits and limitations of NIPT/aneuploidy screening were reviewed including the potential for false negative and false positive results. The availability of genetic counseling was reviewed. Information on aneuploidy screening was provided. The patient chooses to proceed with First trimester early anatomy ultrasound (12-13w6d) Myriad Carrier Screening: Discussed myriad carrier screening. We discussed the availability of professional-society guided carrier screening and reviewed the conditions screened and limitations of screening. The availability of genetic counseling was reviewed. Information on carrier screening was provided. The patient Declines 3) Patient offered option of Virtual Visits. Patient unsure. May consider in future. 4) Obesity (BMI >30), will order early glucose screen or Hemoglobin A1C. 5) GREGORY changed today from 05/08/25 to 05/19/25- OB ultrasound in 2 weeks Follow up in 2 weeks or sooner prfrederick. Davida Fishman APRN.MEDIA JOB TITLES documented in this encounter [facility] 09-20-2024 Telephone encounter Note Phone call placed to complete New OB intake question's appointment scheduled 09/25/2024, brief message left. MyChart not activated, unable to send message. Aide Rene LPN [facility] 09-20-2024 Miscellaneous Notes Phone call placed to complete New OB intake question's appointment scheduled 09/25/2024, brief message left. MyChart not activated, unable to send message. Aide Rene LPN documented in this encounter [facility] 05-11-2024 Note HNO ID: [id number] Author: DAVIDA FISHMAN APRN.ZOE Service: ? Author Type: Nurse Practitioner Type: Progress Notes Filed: 05/11/2024 07:58 Note Text: Flask Carrier offered: Patient declinesAjay Shetty is a 23 year old who presents for an annual gynecologic exam without complaints. Wanting to try for this year. Still get period: Yes LMP: 04/19/2024 Menses: cycles every 28-42 days and 7 days of flow- heavy flow, will bleed thru a tampon in 1.5 hrs, is using adult diaper during period. Sexually active: Yes Contraception: None HPV vaccine: N/A HPV:N/A Last pap smear: never History of abnormal pap: No Bothersome pelvic pain: No Last mammogram: never Patient concerns for STD exposure: No. OB History No obstetric history on file. Zigzagger History LMP: 04/19/2024, Having periods Age at Menarche: Age at First : Age at Menopause: Zigzagger History Comments: Sexual Activity: Yes; Male Contraception: None PAST MEDICAL HISTORY Diagnosis Date NEGATIVE MEDICAL HISTORY PAST SURGICAL HISTORY Procedure Laterality Date REMOVAL GALLBLADDER 2020 FAMILY HISTORY Problem Relation Age of Onset Hypertension Mother other (high chloesterol) Mother Hypertension Father other (high chloesterol) Father No Known Problems Sister No Known Problems Maternal Grandmother No Known Problems Maternal Grandfather SOCIAL HISTORY Social History Tobacco Use Smoking status: Never Smokeless tobacco: Never Vaping Use Vaping status: Never Used Substance Use Topics Alcohol use: Not Currently Drug use: Never REVIEW OF SYSTEMS Abdomen: No abdominal pain, nausea, vomiting, diarrhea, or constipation. No bloating, early satiety, indigestion, or increased flatulence. Bladder: No dysuria, gross hematuria, urinary frequency, urinary urgency, or incontinence. Breast: No breast lumps, nipple d/c, overlying skin changes, redness or skin retraction. Allergies and current medication updated:Yes SENSITIVE EXAM: The sensitive examination was discussed with the Patient or Patient's Authorized Manager Customer Service. As applicable, any other physician, advance practice provider, medical student, or other health professional student that will be observing or involved in the sensitive examination for educational or training purposes was discussed with the Patient or Authorized Manager Customer Service. The Patient or Authorized Manager Customer Service has agreed to proceed with the sensitive examination. (Sensitive examination includes inspection and/or palpation of the breasts, pelvis, prostate and anorectal regions). EXAM: BP 120/70 Ht 5' 4.378 (1.64m) Wt 253 lb (114.8kg) LMP 04/19/2024 BMI 42.93 kg/(m2). GENERAL: pleasant, female in no apparent distress HEENT: Normocephalic, atraumatic, mucus membranes moist, and no lesions NECK: Supple, full range of motion, no adenopathy, and thyroid normal DERMATOLOGY: Normal, without lesions, non-icteric, and non-hirsute BREAST: soft, non-tender, symmetric, no dominant mass, normal nipple-areolar complex, no lymphadenopathy, and no nipple discharge CHEST: Normal inspiratory effort ABDOMEN: soft, non-tender, and no masses PELVIC: external genitalia normal, normal Bartholin's glands, urethra, Putnam's glands, no vulvar lesions, no cervical lesions, good vaginal support, physiologic discharge present, normal appearing perineal body and perianal region BIMANUAL: uterus normal size, shape and consistency, no adnexal masses, and non-tender RECTOVAGINAL: deferred. NEURO: alert and oriented x3,exam grossly non-focal EXTREMITIES: normal ASSESSMENT/PLAN: 1) Health maintenance: Pap done with reflex HPV. Mammogram starting age 40. Nutrition, exercise and routine health maintenance exams reviewed. Calcium/Vitamin D supplementation information provided. Colon cancer screening: start at age 45 2) Contraception: none. Contraceptive options reviewed and information provided. 3) STD screening: Declined STD check. 4) Follow up one year or sooner as needed 5) Lysteda ordered for heavy menses Davida Fishman APRN.[facility] 05-11-2024 History of Presen t illness Narrative Flask Carrier offered: Patient declines. Sena is a 23 year old who presents for an annual gynecologic exam without complaints. Wanting to try for this year. Still get period: Yes LMP: 04/19/2024 Menses: cycles every 28-42 days and 7 days of flow- heavy flow, will bleed thru a tampon in 1.5 hrs, is using adult diaper during period. Sexually active: Yes Contraception: None HPV vaccine: N/A HPV:N/A Last pap smear: never History of abnormal pap: No Bothersome pelvic pain: No Last mammogram: never Patient concerns for STD exposure: No. OB History No obstetric history on file. Zigzagger History LMP: 04/19/2024, Having periods Age at Menarche: Age at First : Age at Menopause: Zigzagger History Comments: Sexual Activity: Yes; Male Contraception: None PAST MEDICAL HISTORY Diagnosis Date NEGATIVE MEDICAL HISTORY PAST SURGICAL HISTORY Procedure Laterality Date REMOVAL GALLBLADDER 2020 FAMILY HISTORY Problem Relation Age of Onset Hypertension Mother other (high chloesterol) Mother Hypertension Father other (high chloesterol) Father No Known Problems Sister No Known Problems Maternal Grandmother No Known Problems Maternal Grandfather SOCIAL HISTORY Social History Tobacco Use Smoking status: Never Smokeless tobacco: Never Vaping Use Vaping status: Never Used Substance Use Topics Alcohol use: Not Currently Drug use: Never REVIEW OF SYSTEMS Abdomen: No abdominal pain, nausea, vomiting, diarrhea, or constipation. No bloating, early satiety, indigestion, or increased flatulence. Bladder: No dysuria, gross hematuria, urinary frequency, urinary urgency, or incontinence. Breast: No breast lumps, nipple d/c, overlying skin changes, redness or skin retraction. Allergies and current medication updated:Yes SENSITIVE EXAM: The sensitive examination was discussed with the Patient or Patient's Authorized Manager Customer Service. As applicable, any other physician, advance practice provider, medical student, or other health professional student that will be observing or involved in the sensitive examination for educational or training purposes was discussed with the Patient or Authorized Manager Customer Service. The Patient or Authorized Manager Customer Service has agreed to proceed with the sensitive examination. (Sensitive examination includes inspection and/or palpation of the breasts, pelvis, prostate and anorectal regions). EXAM: BP 120/70 Ht 5' 4.378 (1.64m) Wt 253 lb (114.8kg) LMP 04/19/2024 BMI 42.93 kg/(m^2). GENERAL: pleasant, female in no apparent distress HEENT: Normocephalic, atraumatic, mucus membranes moist, and no lesions NECK: Supple, full range of motion, no adenopathy, and thyroid normal DERMATOLOGY: Normal, without lesions, non-icteric, and non-hirsute BREAST: soft, non-tender, symmetric, no dominant mass, normal nipple-areolar complex, no lymphadenopathy, and no nipple discharge CHEST: Normal inspiratory effort ABDOMEN: soft, non-tender, and no masses PELVIC: external genitalia normal, normal Bartholin's glands, urethra, Putnam's glands, no vulvar lesions, no cervical lesions, good vaginal support, physiologic discharge present, normal appearing perineal body and perianal region BIMANUAL: uterus normal size, shape and consistency, no adnexal masses, and non-tender RECTOVAGINAL: deferred. NEURO: alert and oriented x3,exam grossly non-focal EXTREMITIES: normal ASSESSMENT/PLAN: 1) Health maintenance: Pap done with reflex HPV. Mammogram starting age 40. Nutrition, exercise and routine health maintenance exams reviewed. Calcium/Vitamin D supplementation information provided. Colon cancer screening: start at age 45 2) Contraception: none. Contraceptive options reviewed and information provided. 3) STD screening: Declined STD check. 4) Follow up one year or sooner as needed 5) Lysteda ordered for heavy menses Davida Fishman APRN.[facility] documented in this encounter [facility] Evaluation note No assessment inform ation available [facility] Work Phone: Evaluation note Diagnosis Encounter for gynecological examination (general) (routine) without abnormal findings- Primary Screening for cervical cancer Screening for malignant neoplasm of the cervix Menorrhagia with regular cycle Excessive or frequent menstruation [facility] Diagnosis 6 weeks gestation of (HCC)- Primary state, incidental Supervision of high risk , antepartum ([facility]) Uncertain dates, antepartum, unspecified trimester ([facility]) Screen for STD (sexually transmitted disease) Screening examination for venereal disease Class 3 severe obesity without serious comorbidity with body mass index (BMI) of 40.0 to 44.9 in adult, unspecified obesity type (HCC) documented [facility] encounter [facility] Diagnosis Umbilical cord cyst during , antepartum (HCC)- Primary 8 weeks gestation of (HCC) state, incidental [facility] Diagnosis 12 weeks gestation of (HCC)- Primary state, incidental Umbilical cord cyst during , antepartum ([facility]) Supervision of high risk , antepartum (HCC) Class 3 severe obesity without serious comorbidity with body mass index (BMI) of 40.0 to 44.9 in adult, unspecified obesity type (HCC) [facility] Diagnosis Encounter for screening for malformation using ultrasound ([facility])- Primary 12 weeks gestation of (HCC) state, incidental Obesity affecting in second trimester, unspecified obesity type (HCC) [facility] Diagnosis Rh negative state in antepartum period (HCC)- Primary Rhesus isoimmunization affecting management of mother, antepartum condition [facility] Diagnosis Supervision of high risk , antepartum (HCC)- Primary 16 weeks gestation of (HCC) state, incidental Rh negative state in antepartum period (HCC) Rhesus isoimmunization affecting management of mother, antepartum condition Obesity affecting in second trimester, unspecified obesity type (HCC) documented in this encounter [facility] for visit Narrative* Diagnostic Procedure Only (Routine) - Closed Specialty Diagnoses / Procedures Referred By Contac t Referred To Contact [facility] Diagnoses 6 weeks gestation of ([facility]) Procedures OBSTETRIC ULTRASOUND WHI US PREG UTERUS AFTER 1ST TRIMEST GESTATION Davida Fishman APRN.[facility] [address] [place] [address] Phone: tel: fax: [facility] [address] [place] [address] Referral ID Status Reason Start Date Expiration Date V isits Requested Visits Authorized [id number] Closed Auto-Generate d Referral 09/27/2024 04/11/2025 1 1 [facility] Summary Purpose Family History No Family History Records FoundNo Family History Records FoundNo Family History Records FoundNo Family History Records Found Advance Directives No Advanced Directives Records Found Advance Directive Response Recorded Date/ Time Living Will No August 01, 2020 10:02pm Power of Graduate Intern No August 01 10:02pm Chief Complaint and Reason for Visit Chief Complaint RT SHOULDER/ RX HERE Additional Source Comments Source Comments (unrecognize d section and content) In the event this informatio n is protected by the Federal Confidentiality of Alcohol and Drug Abuse Patient Records regulations: The Federal rules restrict any use of the information to criminally investigate or prosecute any alcohol or drug abuse patient.[facility] the event this information is protected by the Federal Confidentiality of Alcohol and Drug Abuse Patient Records regulations: The Federal rules restrict any use of the information to criminally investigate or prosecute any alcohol or drug abuse patient.[facility] the event this information is protected by the Federal Confidentiality of Alcohol and Drug Abuse Patient Records regulations: The Federal rules restrict any use of the information to criminally investigate or prosecute any alcohol or drug abuse patient.[facility] the event this information is protected by the Federal Confidentiality of Alcohol and Drug Abuse Patient Records regulations: The Federal rules restrict any use of the information to criminally investigate or prosecute any alcohol or drug abuse patient.[facility] the event this information is protected by the Federal Confidentiality of Alcohol and Drug Abuse Patient Records regulations: The Federal rules restrict any use of the information to criminally investigate or prosecute any alcohol or drug abuse patient.[facility] the event this information is protected by the Federal Confidentiality of Alcohol and Drug Abuse Patient Records regulations: The Federal rules restrict any use of the information to criminally investigate or prosecute any alcohol or drug abuse patient.[facility] the event this information is protected by the Federal Confidentiality of Alcohol and Drug Abuse Patient Records regulations: The Federal rules restrict any use of the information to criminally investigate or prosecute any alcohol or drug abuse patient.[facility] the event this information is protected by the Federal Confidentiality of Alcohol and Drug Abuse Patient Records regulations: The Federal rules restrict any use of the information to criminally investigate or prosecute any alcohol or drug abuse patient.[facility] the event this information is protected by the Federal Confidentiality of Alcohol and Drug Abuse Patient Records regulations: The Federal rules restrict any use of the information to criminally investigate or prosecute any alcohol or drug abuse patient.[facility] Hospital[facility] the event this information is protected by the Federal Confidentiality of Alcohol and Drug Abuse Patient Records regulations: The Federal rules restrict any use of the information to criminally investigate or prosecute any alcohol or drug abuse patient.[facility] Hospital[facility] the event this information is protected by the Federal Confidentiality of Alcohol and Drug Abuse Patient Records regulations: The Federal rules restrict any use of the information to criminally investigate or prosecute any alcohol or drug abuse patient.[facility] Hospital[facility] the event this information is protected by the Federal Confidentiality of Alcohol and Drug Abuse Patient Records regulations: The Federal rules restrict any use of the information to criminally investigate or prosecute any alcohol or drug abuse patient.[facility] Hospital[facility] the event this information is protected by the Federal Confidentiality of Alcohol and Drug Abuse Patient Records regulations: The Federal rules restrict any use of the information to criminally investigate or prosecute any alcohol or drug abuse patient.[facility] INFORMATION SOURCE (unrecogn ized section and content) DATE CREATED AUTHOR 07/16/2021 Kaden Crawford [facility] DATE CREATED AUTHOR AUTHOR'S ORGANIZ ATION 08/21/2021 [facility] DATE CREATED AUTHOR AUTHOR'S ORGANIZ ATION 11/02/2022 [facility] DATE CREATED AUTHOR AUTHOR'S ORGANIZ ATION 02/07/2025 [facility] Goals (unrecognized section and content) Goals may be documented in a n alternate section Reason for Visit (unrecogniz ed section and content) Reason Comments Well Woman Reason Comments Appointment Patient Update Reason Comments New OB, First OB Reason Comments Appointment Reason Comments Care Reason Comments US Specialty Diagnoses / Procedures Referred By Mattie t Referred To Contact [facility] Diagnoses 6 weeks gestation of (HCC) Procedures OBSTETRIC ULTRASOUND WHI US PREG UTERUS AFTER 1ST TRIMEST GESTATION Davida Fishman, CHEIKH[employer] [address] [place] [address] Phone: tel: fax: [facility] [address] [place] [address] Referral ID Status Reason Start Date Expiration Date V isits Requested Visits Authorized [id number] Closed Auto-Generate d Referral 10/26/2024 04/11/2025 1 1 Reason Onset Date Comments Care 12/04/2024 Care Teams (unrecognized sec tion and content) Airline Transport Pilot Relationship Specialty Start Date End Date Sanrda Gandhi PA-C PCP - General Family Medicine 08/01/20 Airline Transport Pilot Relationship Specialty Start Date End Date Sandra Gandhi PA-C PCP - General Family Medicine 08/01/20 Airline Transport Pilot Relationship Specialty Start Date End Date Sandra Gandhi PA-C PCP - General Family Medicine 08/01/20 Airline Transport Pilot Relationship Specialty Start Date End Date Sandra Gandhi PA-C PCP - General Family Medicine 08/01/20 Airline Transport Pilot Relationship Specialty Start Date End Date Sandra Gandhi PA-C PCP - General Family Medicine 08/01/20 Airline Transport Pilot Relationship Specialty Start Date End Date Sandra Gandhi PA-C PCP - General Family Medicine 08/01/20 Airline Transport Pilot Relationship Specialty Start Date End Date Sandra Gandhi PA-C PCP - General Family Medicine 08/01/20 Airline Transport Pilot Relationship Specialty Start Date End Date Sandra Gandhi PA-C PCP - General Family Medicine 08/01/20 Airline Transport Pilot Relationship Specialty Start Date End Date Sandra Gandhi PA-C PCP - General Family Medicine 08/01/20 Airline Transport Pilot Relationship Specialty Start Date End Date Sandra Gandhi PA-C PCP - General Family Medicine 08/01/20 Airline Transport Pilot Relationship Specialty Start Date End Date Sandra Gandhi PA-C PCP - General Family Medicine 08/01/20 FOR RECORDS PERTAINING TO PATIENTS WHO ARE OR HAVE BEEN ENROLLED IN A CHEMICAL DEPENDENCY/SUBSTANCEABUSE PROGRAM, SOME INFORMATION MAY BE OMITTED. This clinical summary was aggregated from multiple sources. Caution should be exercised in using it in the provision of clinical care. This summary normalizes information from multiple sources, and as a consequence, information in this document may materially change the coding, format and clinical context of patient data. In addition, data may be omitted in some cases. CLINICAL DECISIONS SHOULD BE BASED ON THE PRIMARY CLINICAL RECORDS. [facility]. provides no warranty or guarantee of the accuracy or completeness of information in this document.
[2025-04-08 13:47] LABS: Hematocrit 32.2 % (37-47); Hemoglobin 11.4 g/dL (12.0-15.0); Mean Corp Hgb Conc 35.4 g/dL (32-36); Mean Corpuscular Volume 83.4 fL (81-99); Mean Platelet Vol. 10.0 fl (6.2-12.0); Platelet Count 201 K/mm3 (150-450); RBC Distribution Width CV 12.9 % (11.6-14.6); RBC Distribution Width SD 38.8 fl (35.1-43.9); Red Blood Count 3.86 M/mm3 (4.2-5.4); White Blood Count 11.1 K/mm3 (4.4-11.0)
[2025-04-08 14:40] LABS: AST(SGOT) 14 U/L (<=31); Alanine Aminotransfer ALT/SGPT 9 U/L (<=34); Creatinine, Urine (random) 38.60 mg/dL (28.00-217.00); Estimated Creatinine Clearance 231.68 ml/min (50-250); Protein, Urine (Random) 7.4 mg/dL (0.0-12.0); Protein:Creat Ratio 191 mg/g CRE (0-200); Uric Acid 3.8 mg/dL (2.6-6.0)
--- NOTE | 2025-04-17 08:51 | OB.TRI.NOTE ---
HPI - General General Date of Service: 04/08/25 HPI Narrative LAVELL HARTMAN, is a 24 F who presents with headaches. Maternal Data Information GREGORY Calculator Estimated Delivery Date Method Current WG Current Estimate 05/19/25 Manual 35w 3d PFSH PFSH Home Medications ?Medication ?Instructions ?Recorded ?Last Taken ?Type vit no.95-ferrous 1 tab PO DAILY 03/01/25 03/01/25 06:00 History fumarate 28 mg-folic acid 800 mcg 1 TAB tablet () Allergy/AdvReac Type Severity Reaction Status Date / Time Sulfa (Sulfonamide AdvReac Mucosal Verified 04/08/25 13:41 Antibiotics) lesions Surgical History Hx laparoscopic cholecystectomy Social History Smoking Status: Never smoker NST FHR Rate Baby A Baseline: 140 Variability:: Moderate Accelerations:: 15 x 15 Decelerations:: None NST Reactive:: Yes Uterine Activity:: none Assessment & Plan (1) Headache: QUALIFIERS: Headache type: unspecified Headache chronicity pattern: unspecified pattern Intractability: not intractable Qualified Code(s): R51.9 - Headache, unspecified PLAN: Plan Reactive NST
== END 2025-04-08 15:07 | disposition home or self-care (01) ==
LOC: WPOUT 13:09 → WP 13:10
PROVIDERS: Visit Provider Obstetrics & Gynecology
DX: O99.891 Other specified diseases and conditions complicating pregnancy (principal); R51.9 Headache, unspecified; Z3A.35 35 weeks gestation of pregnancy
CPT/HCPCS: 36415; 59025; 59050; 82565; 82570; 84156; 84450; 84460; 84550; 85027; 99221; G0378